=== PATIENT | female | born 1960 | race Caucasian/White ===

== ENCOUNTER → 2017-10-22 11:33 | Outpatient (CLI) | payer BC, SELFPAY | PROVIDERS: Visit Provider Family Medicine | DX: R30.0 Dysuria (principal) | CPT/HCPCS: 87086 ==

== ENCOUNTER → 2018-09-01 09:09 | Outpatient (CLI) | payer OTHER, SELFPAY ==
--- OUTSIDE RECORDS SUMMARY | 2018-10-18 07:40 | XMS RPT_ITS ---
:1960 Author Organization OHIP Care Team Providers Name Role Phone Donta Choudhary Attending Unavailable Donta Choudhary Primary Care Unavailable Donta Choudhary Attending Unavailable Donta Choudhary Primary Care Unavailable Referred, Self Attending Unavailable PROBLEMS PROBLEMS DATE TYPE CONDITION / CODE ATTENDING STATUS SOURCE 09/01/2018 Unknown R30.0 - Dysuria Donta Choudhary Active [place] / R30.0(ICD-10) [facility] Repository PROCEDURES PROCEDURES No Procedure Records FoundRESULTS RESULTS Observed: 09/01/2018 Status: F Source: [place] CULTURE, URINE 9:11 AM [facility] REPOSITORY Urine Culture Below infection level. Group B Streptococcus isolated from culture. ORGANISM 1: Mixed Gram Pos AND Gram Neg Org Quincy Count <1000 MIX CULTURE Mixed contaminants. Submit a new specimen if indicated. Performed By: #### [id number] #### [facility] [place], [address] DOWNTIME REPORT Observed: 03/12/2018 Status: F Source: ANANDA 12:33 PM [facility] REPOSITORY [facility] Medical Records Department [address] [place] [address] Downtime Report MR#: [id number] Acct: [id number] Name: MAEGAN PADGETT Rep #: [id number] : 1960 57 From: [facility] PCP: Donta Choudhary DO Status: REG RCR This patient was seen during an EMR downtime February 23, 2018 - March 02, 2018. This patient may have a combination of paper and electronic documentation or all paper documentation. All documentation is viewable within the e-chart portion of [email or web address] for each patient visit. Observed: 10/22/2017 Status: F Source: [place] CULTURE, URINE 11:43 AM [facility] REPOSITORY Urine Culture Culture exhibits no growth. Performed By: #### [id number] #### [facility] [address] [place], [address] ALLERGIES ALLERGIES No Allergies Records FoundENCOUNTERS ENCOUNTERS ADMIT/DISCHARGE ACCOUNT ADMITTING ENCOUNTER LOCATION SOURCE NUMBER CLASS 09/01/2018 [id number] [facility] ing:BFHLAB Repository 03/02/2018 [id number] Ambulatory [facility] 2 [facility] ing:MASS Repository 10/22/2017 [id number] [facility] 6 [facility] ing:LABSPEC Repository PAYERS PAYERS ENCOUNTER GUARANTOR PAYER SUBSCRIBER SOURCE 09/01/2018 CHANCE H Primary CHANCE H [place] [id number] N Insurance:ANTHEMPolic LEWISDOB: [facility] [place]: [id number] [id number] Repository 18[address]Suv: [phone]) Date:[id number] [phone] () [id number], [place] [address]XW: 09/01/2018 Secondary NOT GIVENUNK [place] Insurance:SELF PAY [facility] Number: Effective Repository Date:2018-09-01 03/02/2018 CHANCE H Primary NOT GIVENUNK [place] [id number] N Insurance:SELF PAY [place], [place] Number: Effective Repository [id number]: [phone]) Date:2017-12-11 [phone] () 10/22/2017 CHANCE H Primary CHANCE H [place] [id number] N Insurance:ANTHEMPolic [facility] [place]: [id number] [id number] Repository [address]Vxk: [phone]) Date:[id number] [phone] () [id number] [address]NH: 10/22/2017 Secondary NOT GIVENUNK [place] Insurance:SELF PAY [facility] Number: Effective Repository Date:2017-10-22
== END ==
PROVIDERS: Family Provider Family Medicine; PCP Family Medicine; Visit Provider Family Medicine
DX: R30.0 Dysuria (principal)
CPT/HCPCS: 87086; 87088

== ENCOUNTER → 2018-10-19 12:38 | Outpatient (CLI) | payer OTHER, SELFPAY ==
--- NOTE | 2018-10-19 12:40 | BI_ITS ---
MAMMOGRAPHY - BILATERAL SCREENING REASON FOR EXAM: Female, 57 years old. Routine annual screening examination. PERTINENT HISTORY: Non-contributory. TECHNIQUE: Digital bilateral breast rory (3D mammographic acquisition) in the CC and MLO projections. 2-D mediolateral oblique (MLO) and craniocaudad (CC) views of both breasts were obtained. CAD: Full Field Digital Mammography with Computer Added Detection was performed. COMPARISON: Comparison is made with prior examination dated September 18, 2017 and September 11, 2016. FINDINGS: Breast Composition: The breasts are almost entirely fatty. There are no dominant masses or suspicious calcifications. No other significant abnormalities are identified. There has been no significant change since the prior study. BI/SCREENING MAMM (CAD), BILAT IMPRESSION: Stable bilateral screening mammogram. Yearly follow-up mammogram recommended. (A) ASSESSMENT CATEGORY: BIRADS Category 1: Negative. A letter regarding these results will be sent to the patient by the facility within 30 days. Approximately 10% of breast cancers are not detected by mammography. A normal mammogram should not delay biopsy of a clinically suspicious abnormality. [id number] Electronically Signed: Rene Kumar MD at 10:11 EST , Service support ,
== END ==
PROVIDERS: Family Provider Family Medicine; PCP Family Medicine; Referring Provider Obstetrics & Gynecology; Visit Provider Obstetrics & Gynecology
DX: Z12.31 Encounter for screening mammogram for malignant neoplasm of breast (principal)
CPT/HCPCS: 77063; 77067

== ENCOUNTER → 2019-02-23 10:08 | Outpatient (CLI) | payer OTHER, SELFPAY | PROVIDERS: Visit Provider Obstetrics & Gynecology | DX: N39.0 Urinary tract infection, site not specified (principal) | CPT/HCPCS: 87077; 87086; 87088 ==

== ENCOUNTER → 2019-06-07 17:04 | Outpatient (CLI) | payer OTHER, SELFPAY ==
[2019-06-29 15:41] LABS: HPV Reflexed? NOT INDICATED
== END ==
PROVIDERS: Referring Provider Obstetrics & Gynecology; Visit Provider Obstetrics & Gynecology
DX: Z12.4 Encounter for screening for malignant neoplasm of cervix (principal)
CPT/HCPCS: 88175; G0145

== ENCOUNTER 2019-07-17 15:34 | Emergency (ER) | payer OTHER, SELFPAY ==
[2019-07-17 15:34] VITALS: BP 130/95; PULSE 115; RESP 16; TEMP 37.2; O2SAT 98; BMI 23.4
--- NOTE | 2019-07-17 16:00 | ED.VISSUMM ---
- ER Visit Summary Date of Service: 07/17/19 Chief Complaint: Fell a week ago with a lip laceration and right anterior chest wall pain History of Present Illness: The patient is a 58 F she was hiking last Friday. She tripped and fell over a rock striking her right chest and lip. Causing laceration to her lip. Was seen in urgent care and was placed on clindamycin on Friday. They were concerned the lip did not look any better on and started on Bactrim. The lip was never repaired because of his delayed presentation of the laceration. She also states she is had right anterior rib cage pain since the fall. No LOC. No head injury no neck pain. No abdominal pain. Physical Examination: Alert female no acute distress. Vital signs are stable and afebrile. She does not look septic or toxic. She is in no distress. H EENT exam dry reactive light. No facial trauma except the lower lip has healing lacerations. There is no infection. The swelling is resolving. These which is never sewn closed in the subcu tissue coming out of both wounds. But there is currently no infection. Dentition is intact. No malocclusion. Scalp nontender neck nontender lungs clear to auscultation bilaterally. Heart regular rhythm no murmur or bruit. Chest wall right anterior chest wall tender. There is no ecchymosis or bruising. No subcu air or crepitance. Abdomen soft nontender normal bowel sounds no peritoneal signs. No signs of trauma. Pelvic girdle intact. Extremities moves all 4. Neurovascular intact. Equal symmetrical supervisor ore dressing strength. Equal symmetrical dorsi plantarflexion. Normal range of motion of both upper and lower extremities. Back nontender. Spine nontender. Neurologically she is awake and alert with no focal motor or sensory deficits. GCS of 15. Test Results: Chest x-ray AP lateral 2 views as read by myself shows no acute abnormality read by myself the radiologist. No rib fractures. No pneumothorax. Emergency Department Course and Treatment: I explained to the patient that her lip laceration is not infected. It is just subcu tissue coming out of the wounds. We will stop with antibiotics. We are going to obtain a chest x-ray due to the chest wall discomfort from the fall. Patient doing well on repeat exam at 1710. Treatment Plan: Ice to her lip. Stop both antibiotics. Tylenol Motrin for her chest wall pain. Disposition: Discharge Impression: Recent fall Lower lip laceration with delayed presentation and healing Right chest wall contusion This note was generated with [employer] dictation software. It may contain incorrect words, spelling, and punctuation that were not noted in review of the chart prior to signing ED Disposition - Plan for ED Patient: Referrals: Donta Choudhary DO [Primary Care Provider] -
--- NOTE | 2019-07-17 16:15 | RAD_ITS ---
STUDY: X-RAY CHEST REASON FOR EXAM: Female, 58 years old. Patient fell, right-sided chest pain TECHNIQUE: PA and lateral views of the chest. COMPARISON: None. FINDINGS: The lungs are clear and expanded. There is no demonstrated pleural abnormality. Normal size heart. Normal mediastinum and bsosman. Normal visualized pulmonary arteries. Normal visualized aortic arch and descending thoracic aorta. There is demineralization of the osseous structures. Normal visualized ribs, clavicles, and shoulders. Hiatal hernia noted. RAD/Chest PA and Lateral IMPRESSION: No acute cardiopulmonary process. Electronically Signed: Chaim Rockwell MD ([place]) at 16:30 EDT , Service support ,
--- NOTE | 2019-07-17 17:12 | ED.DEP ---
ED Disposition - Plan for ED Patient: Disposition: Home or Assisted Living Instructions: Chest Wall Contusion Referrals: Donta Choudhary, [Primary Care Provider] - 1 Week if not improving Additional Instructions: Stop the current antibiotics. Your lip is not infected and just the way the wound looks since it was never closed. Ice to the lip. Tylenol Motrin for pain. Your chest wall should not prove and start feeling better if not have it reevaluated.
== END 2019-07-17 17:25 | disposition home or self-care (01) ==
PROVIDERS: Emergency Provider Emergency Medicine; Family Provider Family Medicine; PCP Family Medicine
DX: S01.511A Laceration without foreign body of lip, initial encounter (principal); S20.211A Contusion of right front wall of thorax, initial encounter; W18.09XA Striking against other object with subsequent fall, initial encounter; Y93.01 Activity, walking, marching and hiking
CPT/HCPCS: 71046; 99282

== ENCOUNTER → 2019-10-25 13:24 | Outpatient (CLI) | payer BC, SELFPAY ==
--- NOTE | 2019-10-25 13:30 | BI_ITS ---
MAMMOGRAPHY - BILATERAL SCREENING REASON FOR EXAM: Female, 58 years old. Routine annual screening examination. PERTINENT HISTORY: Non-contributory. TECHNIQUE: Digital bilateral breast walter (3D mammographic acquisition) in the CC and MLO projections. 2-D mediolateral oblique (MLO) and craniocaudad (CC) views of both breasts were obtained. CAD: Full Field Digital Mammography with Computer Added Detection was performed. COMPARISON: Comparison is made with prior study dated October 11, 2018 and September 18, 2017. FINDINGS: Breast Composition: The breasts are almost entirely fatty. There are no dominant masses or suspicious calcifications. No other significant abnormalities are identified. There has been no significant change since the prior study. BI/SCREEN MAMM (CAD) W/WALTER BILAT IMPRESSION: Stable bilateral screening mammogram. Yearly follow-up mammogram recommended. (A) ASSESSMENT CATEGORY: BIRADS Category 1: Negative. A letter regarding these results will be sent to the patient by the facility within 30 days. Approximately 10% of breast cancers are not detected by mammography. A normal mammogram should not delay biopsy of a clinically suspicious abnormality. [id number] Electronically Signed: Rene Kumar, at 14:16 EST , Service support ,
== END ==
PROVIDERS: Family Provider Family Medicine; PCP Family Medicine; Referring Provider Obstetrics & Gynecology; Visit Provider Obstetrics & Gynecology
DX: Z12.31 Encounter for screening mammogram for malignant neoplasm of breast (principal)
CPT/HCPCS: 77063; 77067

== ENCOUNTER → 2020-03-08 10:41 | Outpatient (CLI) | payer BC, SELFPAY ==
[2020-03-08 12:49] LABS: Absolute Lymphocyte Count 2.24 X10^3/uL (0.83-4.51); Absolute Neutrophil Count 2.4 X10^3/uL (2.0-7.7); Basophil# 0.04 X10^3/uL; Basophil% 0.8 % (0-1); Eosinophils% 3.8 % (0-5); Hematocrit 41.2 % (37-47); Hemoglobin 13.9 g/dL (12.0-15.0); Lymphocyte # 2.24 X10^3/ul (4.0); Mean Corp Hgb Conc 33.7 g/dL (32-36); Mean Corpuscular Hgb 30.7 pg (27.0-32.0); Mean Corpuscular Volume 90.9 fL (81-99); Mean Platelet Vol. 11.4 fl (6.2-12.0); Monocyte# 0.47 X10^3/uL; Monocyte% 8.8 % (0-10); NRBC Flagged by Analyzer 0 % (0-5); Neutrophil # 2.37 X10^3/uL (2.7-7.7); Neutrophil % 44.4 % (47-70); Platelet Count 229 K/mm3 (150-450); RBC Distribution Width CV 12.4 % (11.6-14.6); RBC Distribution Width SD 41.1 fl (35.1-43.9); Red Blood Count 4.53 M/mm3 (4.2-5.4); White Blood Count 5.3 K/mm3 (4.4-11.0)
[2020-03-08 13:03] LABS: Vitamin B12 623 pg/mL (211-911)
[2020-03-08 13:10] LABS: ALB/GLOB Ratio 1.3 RATIO (0.9-2.4); AST(SGOT) 24 U/L (15-37); Alanine Aminotransfer ALT/SGPT 22 U/L (13-56); Albumin, Serum 4.4 g/dL (3.2-5.0); Alkaline Phosphatase 58 U/L (45-117); Anion Gap 6 (5-15); BUN 12 mg/dL (7-18); BUN/Creat Ratio 14.8 RATIO (10-20); Calcium,Total 9.2 mg/dL (8.5-10.1); Chloride 99 mmol/L (98-107); Cholesterol 189 mg/dL (200); Creatinine, Serum 0.81 mg/dL (0.55-1.02); EST Glomerular Filtration Rate 77 mL/min (>60); Est Glom Filt Rate - Afr Amer 93 mL/min (>60); Globulin 3.3 g/dL (2.2-4.2); Glucose 81 mg/dL (74-106); High Density Lipoprotein 61 mg/dL; Potassium 4.2 mmol/L (3.5-5.1); Protein, Total 7.7 g/dL (6.4-8.2); Sodium Level 137 mmol/L (136-145); Thyroid Stim Hormone (TSH) 1.22 uIU/mL (0.358-3.74); Triglycerides 48 mg/dL; Very Low Density Lipoprotein 10 mg/dL (5-40)
== END ==
PROVIDERS: PCP Family Medicine; Referring Provider Family Medicine; Visit Provider Family Medicine
DX: Z00.00 Encounter for general adult medical examination without abnormal findings (principal); K59.09 Other constipation; E53.8 Deficiency of other specified B group vitamins
CPT/HCPCS: 36415; 80053; 80061; 82607; 84443; 85025

== ENCOUNTER → 2020-05-17 09:57 | Outpatient (CLI) | payer BC, SELFPAY ==
[2020-05-17 13:15] LABS: Thyroid Stim Hormone (TSH) 1.77 uIU/mL (0.358-3.74)
[2020-05-18 15:29] LABS: ANTINUCLEAR ANTIBODIES DIRECT Negative (Negative)
== END ==
PROVIDERS: PCP Family Medicine; Visit Provider Family Medicine
DX: G62.9 Polyneuropathy, unspecified (principal)
CPT/HCPCS: 36415; 84443; 86038; 86225; 86235

== ENCOUNTER → 2020-06-23 11:01 | Outpatient (CLI) | payer BC, SELFPAY | PROVIDERS: PCP Family Medicine; Visit Provider Family Medicine | DX: N30.00 Acute cystitis without hematuria (principal) | CPT/HCPCS: 87086; 87088; 87186 ==

== ENCOUNTER → 2020-06-26 07:07 | Outpatient (CLI) | payer BC, SELFPAY ==
--- NOTE | 2020-06-26 09:21 | NEURO ---
NCS and/or EMG Patient Report Ordering Doctor: Donta Choudhary DATE OF SERVICE: 06/26/20 Indication: The patient is a 59-year-old woman presenting with longstanding, but progressive numbness in the bilateral lower extremities. This is painless, though sometimes she reports a tightness in the feet she reports symptoms have been present for many years. She states that her mother had similar problems at a younger age, but she had diabetes as well. On examination, there is significant pes cavus deformity. Evaluate for peripheral polyneuropathy. Findings: Nerve conduction studies were performed the bilateral lower extremities. The right peroneal motor study recording the extensor digitorum brevis showed an absent response. The right tibial motor study recording the abductor hallucis brevis showed a reduced amplitude, normal distal latency and slowed conduction velocity. Right sural sensory response was absent. Right superficial peroneal sensory response was absent. The left peroneal motor study recording the extensor digitorum brevis showed a reduced amplitude, normal distal latency, and slowed conduction velocity. No conduction block or focal slowing was present across the fibular neck. The left tibial motor study recording the abductor hallucis brevis showed a reduced amplitude, mildly prolonged distal latency and markedly slowed conduction velocity. Left sural sensory response was absent. Left superficial peroneal sensory response was absent. Left superficial radial sensory response was absent. Needle EMG of the left lower extremity and paraspinal muscles was performed. Active denervation was present in the tibialis anterior, medial gastrocnemius, and extensor hallucis longus muscles. Motor units in the extensor hallucis longus muscles were markedly large amplitude, long duration with slightly increased polyphasia and moderately reduced recruitment. Motor units in the tibialis anterior and medial gastrocnemius muscles demonstrated slightly enlarged motor units with slightly reduced recruitment. The vastus medialis, tensor fascia meena, and lower lumbar paraspinal muscles revealed motor units with normal morphology, activation, and recruitment patterns. Impression: This is a markedly abnormal study. There is electrophysiologic evidence of a severe, active and chronic, sensorimotor peripheral polyneuropathy. The pathophysiology appears to be largely axonal. That said, several of the nerve conduction studies demonstrate velocities within or approaching demyelinating range. This finding along with the patient's family history of polyneuropathy and her pes cavus deformity does raise the question of a hereditary polyneuropathy (i.e. [id number]-Gsbux). There was do definitive evidence of an acquired demyelinating neuropathy such as conduction block seen in CIDP, though this would also remain in the differential diagnosis. If this is a clinical consideration, neuromuscular ultrasound to evaluate for the presence of known peripheral nerve hypertrophy would be an appropriate next diagnostic step. Ed Hudson D.O.
== END ==
PROVIDERS: PCP Family Medicine; Referring Provider Family Medicine; Visit Provider Family Medicine
DX: G62.9 Polyneuropathy, unspecified (principal)
CPT/HCPCS: 95886; 95911

== ENCOUNTER → 2020-09-18 12:33 | Outpatient (CLI) | payer BC, SELFPAY ==
[2020-09-12 11:37] VITALS: BMI 25.0
[2020-09-18 16:13] LABS: Rheumatoid Factor < 10.0 IU/mL (<15)
[2020-09-20 20:08] LABS: Free Kappa Light Chains 22.1 mg/L (3.3-19.4); Free Lambda Light Chains 21.6 mg/L (5.7-26.3)
== END ==
PROVIDERS: PCP Family Medicine; Referring Provider Psychiatry & Neurology Neurology; Visit Provider Psychiatry & Neurology Neurology
DX: G62.9 Polyneuropathy, unspecified (principal); M25.541 Pain in joints of right hand; M25.542 Pain in joints of left hand
CPT/HCPCS: 36415; 82746; 83883; 86431

== ENCOUNTER → 2020-09-25 09:36 | Outpatient (CLI) | payer BC, SELFPAY ==
[2020-09-12 11:37] VITALS: BMI 25.0
[2020-09-25 12:54] LABS: Erythrocyte Sedimentation Rate 2 mm/hr (0-30)
[2020-09-25 13:01] LABS: CRP < 2.90 mg/L (0.0-3.0)
[2020-09-27 08:20] LABS: CCP IgG Antibodies 4 units (0-19)
== END ==
PROVIDERS: PCP Family Medicine; Visit Provider Family Medicine
DX: M25.50 Pain in unspecified joint (principal)
CPT/HCPCS: 36415; 85652; 86140; 86200

== ENCOUNTER → 2020-10-18 14:14 | Outpatient (CLI) | payer BC, SELFPAY ==
[2020-09-12 11:37] VITALS: BMI 25.0
[2020-10-11 13:13] VITALS: BMI 23.9
--- NOTE | 2020-10-18 15:41 | NEURO ---
NCS and/or EMG Patient Report Ordering Doctor: Ricky Pat DATE OF SERVICE: 10/18/20 Nicole Thakkar is a 59-year-old female who presents for electrodiagnostic testing of the upper limbs. She reports numbness in the hands and pain in both wrists. She had electrodiagnostic testing of the lower limbs performed on June 26, 2020. This showed electrophysiologic evidence of a severe, active and chronic sensorimotor peripheral polyneuropathy which was primarily axonal. Electrodiagnostic findings: Left median motor nerve demonstrates normal distal latency, amplitude with reduced conduction velocity. Right median motor nerve demonstrates prolonged distal latency with normal amplitude and reduced conduction velocity. Normal ulnar motor response bilaterally, including conduction across the elbow. Mildly prolonged median ulnar F waves bilaterally. Prolonged median sensory latency at the wrist is noted bilaterally. Prolonged right median palmar latency. Normal ulnar and radial sensory responses. On needle EMG, all muscles tested in the upper limbs, as well as the cervical paraspinals, showed no evidence of denervation with normal motor unit action potentials. Electrodiagnostic assessment: This is an abnormal study. 1. Electrodiagnostic findings demonstrate bilateral median mononeuropathy. This is consistent with a moderate right carpal tunnel syndrome and a mild left carpal tunnel syndrome. 2. Upper extremity testing does not demonstrate the same polyneuropathy that is noted in the lower limbs. There is no evidence of axonal loss or significant demyelination in the upper limbs. If there are any further questions, please do not hesitate to contact me
== END ==
PROVIDERS: PCP Family Medicine; Referring Provider Psychiatry & Neurology Neurology; Visit Provider Psychiatry & Neurology Neurology
DX: G62.9 Polyneuropathy, unspecified (principal); G56.20 Lesion of ulnar nerve, unspecified upper limb
CPT/HCPCS: 95886; 95912

== ENCOUNTER 2020-10-26 11:30 | Outpatient (RCR) | payer BC, SELFPAY ==
[2020-09-12 11:37] VITALS: BMI 25.0
--- NOTE | 2020-09-21 14:16 | HP.PTEVAL_ITS ---
Patient's Visit Information MAEGAN PADGETT is a 59 year old F referred to Physical Therapy by Dr. Ricky Pat MD with a diagnosis of Lumbar Radiculpathy. Date of Evaluation: 09/21/20 Physical Therapist: Nicole Galeano DPT - Visit Plan Frequency: 2x /Week Duration: 4 Weeks Plan: Aquatic Therapy: Focus on LE and core strength/stablization- proprioception and functional mobility - Subjective Patient reports that she went to see the neurologist due to neropathy- she has had back problems on/off for years and the pain radiates into the hips. Has not had any x-rays or MRI on the back. She had an EMG and blood work done a month ago and they are sending her to get her hands done this year. Has been seeing a chiropractor for over a year- she goes on and off- adjustments only- no exercises or modalities. The back pain comes and goes. Agg: having her grandsons (8,5,3). 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 She had a workers comp injury to her back from that about 4 years ago. Her first back issues were from bending over to get something out of her cabinet. The pain radiates from the low back and into the hips. The toes are numb all the time due to neuropathy- unsure how far the radiating pain goes. They want to do an MRI but she needs to do PT first. Has not had any recent falls. No knee buckling or loss of motor in her legs. She has IBS with constipation that helps to move bowels but no loss or change in bowel or bladder. Worst: 5/10 Best: 0/10. She gets cramping in her legs at night Sleep: disturbed with the cramping- back and side sleeper. Describes the pain in her back as sharp/shooting and dull and achy depending on what she is doing. Eases: rub it down. Work: not anymore- she has been pretty sedentary during the day. She has been walking but the weather and all the COVID issues she has been less active. PMH/Meds: no changes since she saw the neurologist - Objective Posture: FH, RS- can correct but does not maintain. Gait: no significant deviation noted- good arm swing and trunk rotation. Observation: significant guarding with all movements and mobility. HR/TR: able but does reports pain. SLS: weight shift but unable to safely SLS without UE A. ROM: Lumbar: WFL but reports pain with extension and SB bilaterally Hip/Knee/Ankle: WNL. Strength: Core: poor, Hip: flexion: 4-/5, abd: 4/5, extn: 4-/5, Add: 4/5, IR/ER: 4-/5, Knee: 4/4, Ankle: 5/5. Flex: HS: severe, Gastroc: moderate. Sensation: WFL to gross touch bilateral LE. Special Test: dural signs: positive bilateral, SLR: positive bilateral, Slump: positive bilateral, LLD: negative, extn testing: increased pain, flexion testing: increased pain - Goals Goal 1:: Patient will be I with HEP and progression Goal Time Frame: 4-6 Weeks Goal 2:: Patient will maintain proper posture t/o tx session to demo increased core s/s. Goal Time Frame: 4-6 Weeks Goal 3:: Patient will report no more than 2/10 pain in the lumbar spine Goal Time Frame: 4-6 Weeks Goal 4:: Patient will report no referral of back pain to bilateral LE Goal Time Frame: 4-6 Weeks - Rehabilitation Potential Physical Therapy Diagnosis: Patient presents with hypomobility- she has decreased ROM,strength, flex and muscular endurance leading to increased pain with ADL's. Rehabilitation Potential: Fair - Anticipated Interventions Patient/Client Instruction: Educate patient on: Benefits of Fitness Program Therapeutic Exercise to Include: Strength training, Endurance training, Balance training, Coordination, Agility training, Body mechanics, Postural training, Flexibilty training, Gait and locomotor training, Neuromotor development, In an aquatic setting, Dynamic Lumbar Stabilization, Scapular Strength/Stabilization For the Purpose of:: To improve muscle performance and motor function Thank you for the opportunity to evaluate your patient. For Medicare and Medicare HMO plans, please review the plan of care and approve it. It will need to be FAXED BACK to us at [phone] for Medicare purposes. For Medicare only, by signing this I certify the plan of care. Please let me know if there are questions or concerns regarding this plan of care. Physician Signatu re: Date:
--- NOTE | 2020-10-09 11:41 | HP.PTREVAL_ITS ---
Dr. Ricky Pat MD, It has been my pleasure to treat MAEGAN PADGETT over the last 5 visits for Lumbar Radiculpathy. Please see the progress note below for an update on the physical therapy plan of care! Subjective: Patient reports pain at its worst is a 2-3/10 and best is a 0/10. Making progress but is not there yet. Able to do more at home. Objective/Function: Posture: FH, RS- can correct but does not maintain. Gait: no significant deviation noted- good arm swing and trunk rotation- when in pool has uses a float for AD due to decrease balance with water movement. Observation: significant guarding with all movements and mobility. HR/TR: able but does reports pain. SLS: weight shift but unable to safely SLS without UE A. Requires UE A to side step- turns toes out in ER. ROM: Lumbar: WFL but reports pain with extension and SB bilaterally Hip/Knee/Ankle: WNL. Strength: Core: poor, Hip: flexion: 4-/5, abd: 4/5, extn: 4-/5, Add: 4/5, IR/ER: 4-/5, Knee: 4/4, Ankle: 5/5. Special Test: dural signs: positive bilateral, SLR: positive bilateral, Slump: positive bilateral, LLD: negative, extn testing: increased p ain, flexion testing: increased pain. Does reports subjective improvements with aquatic physical therapy- no significant objective measures noted as patient was only approved 4 visits. Plan Plan: Continue aquatic therapy 2-3x a week for 6 weeks to improve objective measures and continue to improved subjective measures and functional mobility. Goals Goal 1:: Patient will be I with HEP and progression Goal Time Frame: 4-6 Weeks Goal Progress: Progressing Goal 2:: Patient will maintain proper posture t/o tx session to demo increased core s/s. Goal Time Frame: 4-6 Weeks Goal Progress: Progressing Goal 3:: Patient will report no more than 2/10 pain in the lumbar spine Goal Time Frame: 4-6 Weeks Goal Progress: Progressing Goal 4:: Patient will report no referral of back pain to bilateral LE Goal Time Frame: 4-6 Weeks Anticipated Interventions Patient/Client Instruction: Educate patient on: Benefits of Fitness Program Therapeutic Exercise to Include: Strength training, Endurance training, Balance training, Coordination, Agility training, Body mechanics, Postural training, Flexibilty training, Gait and locomotor training, Neuromotor development, In an aquatic setting, Dynamic Lumbar Stabilization, Scapular Strength/Stabilization For the Purpose of:: To improve muscle performance and motor function Please do not hesitate to contact me at [phone] by phone or if you have questions or concerns regarding this new plan of care! Sincerely, DUDLEY MabryT
--- NOTE | 2020-11-27 14:15 | HP.PT.NRP ---
MAEGAN PADGETT was seen in my office for initial evaluation on 09/21/20. The following Plan of Care was established for this patient: Initial Frequency: 2x /Week Initial Duration: 4 Weeks Patient/Client Instruction: Educate patient on: Benefits of Fitness Program Therapeutic Exercise to Include: Strength training, Endurance training, Balance training, Coordination, Agility training, Body mechanics, Postural training, Flexibilty training, Gait and locomotor training, Neuromotor development, In an aquatic setting, Dynamic Lumbar Stabilization, Scapular Strength/Stabilization For the Purpose of:: To improve muscle performance and motor function This patient was last seen in our office . Pertinent comments regarding their Physical therapy will appear below: Patient has not attended PT in over 30 days- appropriate to be d/c and return to MD for further evaluation. At this point I will be discontinuing this patient from physical therapy. I would be happy to see this patient again in the future if found appropriate by the physician. Thank you! Nicole Galeano DPT
== END 2020-10-26 19:00 | disposition home or self-care (01) ==
LOC: PT 11:30
PROVIDERS: PCP Family Medicine; Referring Provider Psychiatry & Neurology Neurology; Visit Provider Psychiatry & Neurology Neurology
DX: M54.5 Low back pain (principal); M54.16 Radiculopathy, lumbar region; G62.9 Polyneuropathy, unspecified
CPT/HCPCS: 97113; 97162; 97164

== ENCOUNTER → 2020-11-10 14:11 | Outpatient (CLI) | payer BC, SELFPAY ==
[2020-10-11 13:13] VITALS: BMI 23.9
[2020-11-10 17:25] LABS: Absolute Lymphocyte Count 1.98 X10^3/uL (0.83-4.51); Absolute Neutrophil Count 2.2 X10^3/uL (2.0-7.7); Basophil# 0.04 X10^3/uL; Basophil% 0.8 % (0-1); Eosinophil# 0.13 X10^3/uL; Eosinophils% 2.7 % (0-5); Hematocrit 41.3 % (37-47); Hemoglobin 13.4 g/dL (12.0-15.0); Lymphocyte # 1.98 X10^3/ul (4.0); Lymphocyte % 41.3 % (19-41); Mean Corp Hgb Conc 32.4 g/dL (32-36); Mean Corpuscular Hgb 29.8 pg (27.0-32.0); Mean Corpuscular Volume 91.8 fL (81-99); Mean Platelet Vol. 10.3 fl (6.2-12.0); Monocyte# 0.47 X10^3/uL; Monocyte% 9.8 % (0-10); NRBC Flagged by Analyzer 0 % (0-5); Neutrophil # 2.16 X10^3/uL (2.7-7.7); Neutrophil % 45.2 % (47-70); Platelet Count 269 K/mm3 (150-450); RBC Distribution Width CV 12.8 % (11.6-14.6); RBC Distribution Width SD 43.1 fl (35.1-43.9); White Blood Count 4.8 K/mm3 (4.4-11.0)
[2020-11-10 17:47] LABS: Erythrocyte Sedimentation Rate 2 mm/hr (0-30)
[2020-11-10 17:59] LABS: ALB/GLOB Ratio 1.3 RATIO (0.9-2.4); AST(SGOT) 17 U/L (15-37); Alanine Aminotransfer ALT/SGPT 19 U/L (13-56); Albumin, Serum 4.3 g/dL (3.2-5.0); Alkaline Phosphatase 74 U/L (45-117); Anion Gap 8 (5-15); BUN 12 mg/dL (7-18); BUN/Creat Ratio 15.2 RATIO (10-20); CRP < 2.90 mg/L (0.0-3.0); Chloride 100 mmol/L (98-107); Creatinine, Serum 0.79 mg/dL (0.55-1.02); EST Glomerular Filtration Rate 80 mL/min (>60); Est Glom Filt Rate - Afr Amer 97 mL/min (>60); Globulin 3.3 g/dL (2.2-4.2); Glucose 74 mg/dL (74-106); Potassium 3.6 mmol/L (3.5-5.1); Protein, Total 7.6 g/dL (6.4-8.2); Rheumatoid Factor < 10.0 IU/mL (<15); Sodium Level 138 mmol/L (136-145)
[2020-11-10 18:25] LABS: Hepatitis B Surface Antibody Non-Reactive; Hepatitis B Surface Antigen Non-Reactive (Nonreactive); Hepatitis C Antibody Non-Reactive (Nonreactive)
[2020-11-12 15:06] LABS: ANTINUCLEAR ANTIBODIES DIRECT Negative (Negative)
[2020-11-14 09:24] LABS: CCP IgG Antibodies 4 units (0-19); Hepatitis B Core AB IgM Negative (Negative)
== END ==
PROVIDERS: PCP Family Medicine; Referring Provider Internal Medicine Rheumatology; Visit Provider Internal Medicine Rheumatology
DX: M06.4 Inflammatory polyarthropathy (principal); Q66.71 Congenital pes cavus, right foot; K59.09 Other constipation; K58.9 Irritable bowel syndrome, unspecified; K21.9 Gastro-esophageal reflux disease without esophagitis; I10 Essential (primary) hypertension; N32.81 Overactive bladder; G62.9 Polyneuropathy, unspecified; L92.0 Granuloma annulare
CPT/HCPCS: 36415; 80053; 85025; 85652; 86038; 86140; 86200; 86431; 86705; 86706; 86803; 87340

== ENCOUNTER → 2021-02-28 12:45 | Outpatient (CLI) | payer BC, SELFPAY ==
[2021-02-14 11:09] VITALS: BMI 25.0
--- NOTE | 2021-02-28 12:48 | BI_ITS ---
MAMMOGRAPHY - BILATERAL SCREENING REASON FOR EXAM: Female, 60 years old. Routine annual screening examination. PERTINENT HISTORY: Non-contributory. TECHNIQUE: Digital bilateral breast walter (3D mammographic acquisition) in the CC and MLO projections. 2-D mediolateral oblique (MLO) and craniocaudad (CC) views of both breasts were obtained. CAD: Full Field Digital Mammography with Computer Added Detection was performed. COMPARISON: Comparison is made with prior study dated 10/25/2019 and 10/19/2018. FINDINGS: Breast Composition: The breasts are almost entirely fatty. There are no dominant masses or suspicious calcifications. No other significant abnormalities are identified. There has been no significant change since the prior study. BI/SCRN MAMM (CAD)W/WALTER BILAT IMPRESSION: Stable bilateral screening mammogram. Yearly follow-up mammogram recommended. (A) ASSESSMENT CATEGORY: BIRADS Category 1: Negative. A letter regarding these results will be sent to the patient by the facility within 30 days. Approximately 10% of breast cancers are not detected by mammography. A normal mammogram should not delay biopsy of a clinically suspicious abnormality. [id number] Electronically Signed: Rene Kumar MD at 13:40 EDT , Service support ,
== END ==
PROVIDERS: PCP Family Medicine; Referring Provider Student in an Organized Health Care Education/Training Program; Visit Provider Student in an Organized Health Care Education/Training Program
DX: Z12.31 Encounter for screening mammogram for malignant neoplasm of breast (principal)
CPT/HCPCS: 77063; 77067

== ENCOUNTER → 2021-04-06 12:09 | Outpatient (CLI) | payer BC, SELFPAY ==
[2021-02-14 11:09] VITALS: BMI 25.0
--- NOTE | 2021-04-06 12:12 | US_ITS ---
INDICATION: UTI EXAMINATION: US Kidney(s) complete (eg, kidneys and bladder) TECHNIQUE: Prieto scale and color doppler images were obtained of the kidneys. COMPARISON: None. FINDINGS: RIGHT KIDNEY: Measures 9.3 cm in length. There is no hydronephrosis. No shadowing calculus, focal lesion or perinephric collection is demonstrated. LEFT KIDNEY: Measures 9.1 cm in length. There is no hydronephrosis. No shadowing calculus, focal lesion or perinephric collection is demonstrated. URINARY BLADDER: No acute abnormality. US/Kidney and Bladder IMPRESSION: Normal renal ultrasound. Electronically Signed: Ed Barger MD at 23:26 EDT Tel , Service support ,
== END ==
PROVIDERS: PCP Family Medicine; Referring Provider Urology; Visit Provider Urology
DX: N39.0 Urinary tract infection, site not specified (principal)
CPT/HCPCS: 76770

== ENCOUNTER → 2022-03-12 | Outpatient (CLI) | payer BC, SELFPAY | END | disposition home or self-care (01) | LOC: LABSPEC 12:58 | PROVIDERS: PCP Family Medicine; Visit Provider Family Medicine | DX: R82.90 Unspecified abnormal findings in urine (principal); R82.998 Other abnormal findings in urine | CPT/HCPCS: 87077; 87086; 87088; 87186 ==

== ENCOUNTER → 2022-03-14 | Outpatient (CLI) | payer BC, SELFPAY ==
[2022-03-19 10:27] LABS: HPV APTIMA, High Risk Negative (Negative)
== END | disposition home or self-care (01) ==
LOC: LABSPEC 14:23
PROVIDERS: PCP Family Medicine; Visit Provider Student in an Organized Health Care Education/Training Program
DX: Z12.4 Encounter for screening for malignant neoplasm of cervix (principal)
CPT/HCPCS: 87624; 88175; G0145

== ENCOUNTER → 2022-03-28 | Outpatient (CLI) | payer BC, SELFPAY ==
--- NOTE | 2022-03-28 13:09 | BI_ITS ---
MAMMOGRAPHY - BILATERAL SCREENING REASON FOR EXAM: Female, 61 years old. Routine annual screening examination. PERTINENT HISTORY: Non-contributory. TECHNIQUE: Digital bilateral breast walter (3D mammographic acquisition) in the CC and MLO projections. 2-D mediolateral oblique (MLO) and craniocaudad (CC) views of both breasts were obtained. CAD: Full Field Digital Mammography with Computer Added Detection was performed. COMPARISON: Comparison is made with prior study dated 02/28/2021 and 10/25/2019. FINDINGS: Breast Composition: The breasts are almost entirely fatty. There are no dominant masses or suspicious calcifications. Stable small benign appearing bilateral axillary nodes. No other significant abnormalities are identified. There has been no significant change since the prior study. BI/SCRN MAMM (CAD)W/WALTER BILAT IMPRESSION: Stable bilateral screening mammogram. Yearly follow-up mammogram recommended. (A) ASSESSMENT CATEGORY: BIRADS Category 2: Benign. A letter regarding these results will be sent to the patient by the facility within 30 days. Approximately 10% of breast cancers are not detected by mammography. A normal mammogram should not delay biopsy of a clinically suspicious abnormality. [id number] Electronically Signed: Rene Kumar MD at 14:27 EDT ,
== END | disposition home or self-care (01) ==
LOC: OPBI 13:07
PROVIDERS: PCP Family Medicine; Visit Provider Student in an Organized Health Care Education/Training Program
DX: Z12.31 Encounter for screening mammogram for malignant neoplasm of breast (principal)
CPT/HCPCS: 77063; 77067

== ENCOUNTER → 2022-07-18 | Outpatient (CLI) | payer BC, SELFPAY ==
--- NOTE | 2022-07-18 16:27 | RAD_ITS ---
EXAM: XR RIGHT ANKLE COMPLETE, 3 OR MORE VIEWS CLINICAL INDICATION: PAIN TECHNIQUE: Frontal, lateral and oblique views of the right ankle. This report was created using [employer] report generation technology. COMPARISON: None. FINDINGS: BONES/JOINTS: There are vague lucent lesions seen within the distal tibia and fibula. No acute fracture. No subluxation. Normal alignment. Preservation of the joint space. SOFT TISSUES: There is soft tissue swelling over the medial and lateral malleoli. No radiopaque foreign body. RAD/Ankle min 3 Views IMPRESSION: 1. Soft tissue swelling with no acute osseous abnormalities. 2. Vague lytic lesion seen within the distal tibia and fibula possibly representing multiple myeloma. Skeletal survey may be beneficial for further evaluation. Electronically Signed: Kunal Sam MD at 23:09 EDT ,
--- NOTE | 2022-07-18 16:27 | RAD_ITS ---
EXAM: XR RIGHT FOOT COMPLETE, 3 OR MORE VIEWS CLINICAL INDICATION: PAIN TECHNIQUE: Frontal, lateral and oblique views of the right foot. This report was created using [employer] report generation technology. COMPARISON: None. FINDINGS: BONES/JOINTS: There is a fracture of the distal fourth metatarsal. Preservation of the joint space. No sclerotic or destructive changes observed. SOFT TISSUES: Unremarkable. No soft tissue swelling or gas. No radiopaque foreign body. RAD/Foot min 3 Views IMPRESSION: Fracture of the fifth metatarsal. Electronically Signed: Kunal Sam MD at 17:46 EDT ,
== END | disposition home or self-care (01) ==
LOC: MTRAD 16:26
PROVIDERS: PCP Family Medicine; Referring Provider Family Medicine; Visit Provider Family Medicine
DX: M25.571 Pain in right ankle and joints of right foot (principal); M79.671 Pain in right foot
CPT/HCPCS: 73610; 73630

== ENCOUNTER → 2022-07-19 | Outpatient (CLI) | payer BC, SELFPAY ==
[2022-07-19 12:11] LABS: ALB/GLOB Ratio 1.2 RATIO (0.9-2.4); AST(SGOT) 25 U/L (15-37); Absolute Lymphocyte Count 2.49 X10^3/uL (0.83-4.51); Absolute Neutrophil Count 3.8 X10^3/uL (2.0-7.7); Alanine Aminotransfer ALT/SGPT 22 U/L (13-56); Albumin, Serum 4.1 g/dL (3.2-5.0); Alkaline Phosphatase 86 U/L (45-117); Anion Gap 5 (5-15); BUN 13 mg/dL (7-18); BUN/Creat Ratio 14.7 RATIO (10-20); Basophil# 0.05 X10^3/uL; Basophil% 0.7 % (0-1); Calcium,Total 8.8 mg/dL (8.5-10.1); Chloride 104 mmol/L (98-107); Creatinine, Serum 0.88 mg/dL (0.55-1.02); EST Glomerular Filtration Rate 69 mL/min (>60); Eosinophil# 0.31 X10^3/uL; Eosinophils% 4.3 % (0-5); Est Glom Filt Rate - Afr Amer 84 mL/min (>60); Globulin 3.4 g/dL (2.2-4.2); Glucose 158 mg/dL (74-106); Hematocrit 42.7 % (37-47); Hemoglobin 14.5 g/dL (12.0-15.0); Lymphocyte # 2.49 X10^3/ul (0.83-4.51); Lymphocyte % 34.9 % (19-41); Mean Corpuscular Hgb 30.9 pg (27.0-32.0); Monocyte# 0.49 X10^3/uL; Monocyte% 6.9 % (0-10); NRBC Flagged by Analyzer 0 % (0-5); Neutrophil # 3.78 X10^3/uL (2.7-7.7); Neutrophil % 53.1 % (47-70); Platelet Count 280 K/mm3 (150-450); Potassium 3.6 mmol/L (3.5-5.1); Protein, Total 7.5 g/dL (6.4-8.2); RBC Distribution Width CV 13.1 % (11.6-14.6); RBC Distribution Width SD 43.4 fl (35.1-43.9); Red Blood Count 4.69 M/mm3 (4.2-5.4); Sodium Level 137 mmol/L (136-145); White Blood Count 7.1 K/mm3 (4.4-11.0)
[2022-07-23 15:02] LABS: Immunoglobulin A 105 mg/dL (87-352); Immunoglobulin G 1105 mg/dL (586-1602); PROEL- A/G Ratio 1.3 (0.7-1.7); PROEL- Alpha-1 Globulin 0.3 g/dL (0.0-0.4); PROEL- Alpha-2 Globulin 0.7 g/dL (0.4-1.0); PROEL- Gamma Globulin 1.1 g/dL (0.4-1.8); PROEL- Globulin, Total 3.1 g/dL (2.2-3.9); PROEL- TOTAL PROTEIN 7.1 g/dL (6.0-8.5); PROELU- Albumin, Urine 34.5 % (.); PROELU- Alpha-1-Globulin,Ur 6.4 % (.); PROELU- Beta Globulin, Ur 21.7 % (.); PROELU- Gamma Globulin, Ur 20.4 % (.)
[2022-07-23 17:10] LABS: Immunoglobulin M 105 mg/dL (26-217)
== END | disposition home or self-care (01) ==
LOC: BFHLAB 10:15
PROVIDERS: PCP Family Medicine; Visit Provider Family Medicine
DX: M89.9 Disorder of bone, unspecified (principal)
CPT/HCPCS: 36415; 80053; 82232; 82784; 84165; 84166; 85025; 86334

== ENCOUNTER → 2022-07-19 | Outpatient (CLI) | payer BC, SELFPAY ==
--- NOTE | 2022-07-19 13:53 | RAD_ITS ---
EXAM: XR BONE SURVEY, COMPLETE CLINICAL INDICATION: LESION TECHNIQUE: Multiple views of the bones of the axial and appendicular skeleton. This report was created using [employer] report generation technology. COMPARISON: None. FINDINGS: BONES/JOINTS: No acute findings. No lytic or blastic lesions. SOFT TISSUES: Unremarkable. RAD/Bone Survey Comp(Axial&Append) IMPRESSION: Normal skeletal x-rays. Electronically Signed: Kunal Sam MD at 22:29 EDT ,
== END | disposition home or self-care (01) ==
LOC: RAD 13:45
PROVIDERS: PCP Family Medicine; Referring Provider Family Medicine; Visit Provider Family Medicine
DX: M89.9 Disorder of bone, unspecified (principal)
CPT/HCPCS: 77075

== ENCOUNTER → 2023-03-10 | Outpatient (CLI) | payer BC, SELFPAY ==
[2023-03-10 12:43] LABS: Vitamin B12 536 pg/mL (211-911); Vitamin D,25 Hydroxy 52.8 ng/mL
[2023-03-10 12:53] LABS: Absolute Lymphocyte Count 2.98 X10^3/uL (0.83-4.51); Absolute Neutrophil Count 4.4 X10^3/uL (2.0-7.7); Basophil# 0.06 X10^3/uL; Basophil% 0.7 % (0-1); Eosinophils% 4.7 % (0-5); Hematocrit 43.2 % (37-47); Hemoglobin 14.1 g/dL (12.0-15.0); Lymphocyte # 2.98 X10^3/ul (0.83-4.51); Lymphocyte % 34.9 % (19-41); Mean Corp Hgb Conc 32.6 g/dL (32-36); Mean Corpuscular Hgb 29.9 pg (27.0-32.0); Mean Corpuscular Volume 91.5 fL (81-99); Mean Platelet Vol. 11.1 fl (6.2-12.0); Monocyte# 0.66 X10^3/uL; Monocyte% 7.7 % (0-10); NRBC Flagged by Analyzer 0 % (0-5); Neutrophil # 4.43 X10^3/uL (2.7-7.7); Neutrophil % 51.8 % (47-70); Platelet Count 277 K/mm3 (150-450); RBC Distribution Width CV 12.7 % (11.6-14.6); RBC Distribution Width SD 42.4 fl (35.1-43.9); Red Blood Count 4.72 M/mm3 (4.2-5.4); White Blood Count 8.6 K/mm3 (4.4-11.0)
[2023-03-10 13:16] LABS: AST(SGOT) 19 U/L (15-37); Alanine Aminotransfer ALT/SGPT 16 U/L (13-56); Albumin, Serum 3.9 g/dL (3.2-5.0); Alkaline Phosphatase 99 U/L (45-117); Anion Gap 7 (5-15); BUN 17 mg/dL (7-18); BUN/Creat Ratio 16.2 RATIO (10-20); Calcium,Total 9.9 mg/dL (8.5-10.1); Chloride 101 mmol/L (98-107); Cholesterol 195 mg/dL (200); Creatinine, Serum 1.05 mg/dL (0.55-1.02); EST Glomerular Filtration Rate 57 mL/min (>60); Est Glom Filt Rate - Afr Amer 69 mL/min (>60); Glucose 94 mg/dL (74-106); High Density Lipoprotein 52 mg/dL; Potassium 4.1 mmol/L (3.5-5.1); Protein, Total 7.9 g/dL (6.4-8.2); Sodium Level 137 mmol/L (136-145); T4 Free Direct 1.08 ng/dL (0.76-1.46); Thyroid Stim Hormone (TSH) 1.77 uIU/mL (0.358-3.74); Triglycerides 92 mg/dL; Very Low Density Lipoprotein 18 mg/dL (5-40)
== END | disposition home or self-care (01) ==
LOC: MTLAB 09:18
PROVIDERS: PCP Family Medicine; Referring Provider Nurse Practitioner Family; Visit Provider Nurse Practitioner Family
DX: Z00.00 Encounter for general adult medical examination without abnormal findings (principal); I10 Essential (primary) hypertension; E53.8 Deficiency of other specified B group vitamins; E55.9 Vitamin D deficiency, unspecified
CPT/HCPCS: 36415; 80053; 80061; 82306; 82607; 84439; 84443; 85025

== ENCOUNTER → 2023-03-31 | Outpatient (CLI) | payer BC, SELFPAY ==
--- NOTE | 2023-03-31 13:49 | BI_ITS ---
MAMMOGRAPHY - BILATERAL SCREENING REASON FOR EXAM: Female, 62 years old. Routine annual screening examination. PERTINENT HISTORY: Non-contributory. TECHNIQUE: Digital bilateral breast walter (3D mammographic acquisition) in the CC and MLO projections. 2-D mediolateral oblique (MLO) and craniocaudad (CC) views of both breasts were obtained. CAD: Full Field Digital Mammography with Computer Added Detection was performed. COMPARISON: Comparison is made with prior study dated March 28, 2022 and February 28, 2021. FINDINGS: Breast Composition: The breasts are almost entirely fatty. There are no dominant masses or suspicious calcifications. Stable small benign-appearing bilateral axillary lymph nodes. No other significant abnormalities are identified. There has been no significant change since the prior study. BI/SCRN MAMM (CAD)W/WALTER BILAT IMPRESSION: Stable bilateral screening mammogram. Yearly follow-up mammogram recommended. (A) ASSESSMENT CATEGORY: BIRADS Category 2: Benign. A letter regarding these results will be sent to the patient by the facility within 30 days. Approximately 10% of breast cancers are not detected by mammography. A normal mammogram should not delay biopsy of a clinically suspicious abnormality. [id number] Electronically Signed: Rene Kumar MD at 8:11 EDT ,
== END | disposition home or self-care (01) ==
LOC: OPBI 13:48
PROVIDERS: PCP Family Medicine; Referring Provider Nurse Practitioner Family; Visit Provider Nurse Practitioner Family
DX: Z12.31 Encounter for screening mammogram for malignant neoplasm of breast (principal)
CPT/HCPCS: 77063; 77067

== ENCOUNTER → 2023-10-24 | Outpatient (CLI) | payer BC, SELFPAY ==
[2023-10-24 10:34] LABS: ALB/GLOB Ratio 1.2 RATIO (0.9-2.4); AST(SGOT) 15 U/L (15-37); Alanine Aminotransfer ALT/SGPT 19 U/L (13-56); Albumin, Serum 4.1 g/dL (3.2-5.0); Alkaline Phosphatase 76 U/L (45-117); Anion Gap 2 (5-15); BUN 13 mg/dL (7-18); BUN/Creat Ratio 13.3 RATIO (10-20); Calcium,Total 9.4 mg/dL (8.5-10.1); Chloride 101 mmol/L (98-107); Creatinine, Serum 0.98 mg/dL (0.55-1.02); EST Glomerular Filtration Rate 61 mL/min (>60); Est Glom Filt Rate - Afr Amer 74 mL/min (>60); Globulin 3.4 g/dL (2.2-4.2); Glucose 106 mg/dL (74-106); Magnesium 2.2 mg/dL (1.6-2.6); Potassium 3.9 mmol/L (3.5-5.1); Protein, Total 7.5 g/dL (6.4-8.2); Sodium Level 134 mmol/L (136-145)
== END | disposition home or self-care (01) ==
LOC: MTLAB 09:08
PROVIDERS: PCP Family Medicine; Referring Provider Nurse Practitioner Family; Visit Provider Nurse Practitioner Family
DX: K59.09 Other constipation (principal); I10 Essential (primary) hypertension
CPT/HCPCS: 36415; 80053; 83735

== ENCOUNTER 2024-01-20 10:56 | Outpatient (RCR) | payer BC, SELFPAY | END 2024-01-20 23:59 | LOC: NS 10:56 | PROVIDERS: PCP Family Medicine; Referring Provider Family Medicine; Visit Provider Family Medicine | DX: Z71.3 Dietary counseling and surveillance (principal); I10 Essential (primary) hypertension; K59.09 Other constipation | CPT/HCPCS: 97802 ==

== ENCOUNTER 2024-02-09 13:50 | Outpatient (RCR) | payer BC, SELFPAY | END 2024-02-20 23:59 | LOC: NS 13:50 | PROVIDERS: PCP Family Medicine; Referring Provider Family Medicine; Visit Provider Family Medicine | DX: Z71.3 Dietary counseling and surveillance (principal); I10 Essential (primary) hypertension; K58.1 Irritable bowel syndrome with constipation | CPT/HCPCS: 97803 ==

== ENCOUNTER 2024-03-01 13:29 | Outpatient (RCR) | payer BC, SELFPAY | END 2024-03-21 23:59 | LOC: NS 13:29 | PROVIDERS: PCP Family Medicine; Referring Provider Family Medicine; Visit Provider Family Medicine | DX: Z71.3 Dietary counseling and surveillance (principal); I10 Essential (primary) hypertension; K58.1 Irritable bowel syndrome with constipation | CPT/HCPCS: 97803 ==

== ENCOUNTER 2024-03-30 09:28 | Outpatient (RCR) | payer BC, SELFPAY | END 2024-04-21 23:59 | LOC: NS 09:28 | PROVIDERS: PCP Family Medicine; Referring Provider Family Medicine; Visit Provider Family Medicine | DX: Z71.3 Dietary counseling and surveillance (principal); K59.09 Other constipation; I10 Essential (primary) hypertension | CPT/HCPCS: 97803 ==

== ENCOUNTER → 2024-04-14 | Outpatient (CLI) | payer BC, SELFPAY ==
--- NOTE | 2024-04-14 12:16 | BI_ITS ---
MAMMOGRAPHY - BILATERAL SCREENING REASON FOR EXAM: Female, 63 years old. Routine annual screening examination. PERTINENT HISTORY: Non-contributory. TECHNIQUE: Digital bilateral breast walter (3D mammographic acquisition) in the CC and MLO projections. 2-D mediolateral oblique (MLO) and craniocaudad (CC) views of both breasts were obtained. CAD: Full Field Digital Mammography with Computer Added Detection was performed. COMPARISON: Comparison is made with prior study March 31, 2023 and March 28, 2022. FINDINGS: Breast Composition: The breasts are almost entirely fatty. There are no dominant masses or suspicious calcifications. No other significant abnormalities are identified. There has been no significant change since the prior study. BI/SCRN MAMM (CAD)W/WALTER BILAT IMPRESSION: Stable bilateral screening mammogram. Yearly follow-up mammogram recommended. (A) ASSESSMENT CATEGORY: BIRADS Category 1: Negative. A letter regarding these results will be sent to the patient by the facility within 30 days. Approximately 10% of breast cancers are not detected by mammography. A normal mammogram should not delay biopsy of a clinically suspicious abnormality. [id number] Electronically Signed: Rene Kumar MD at 13:23 EDT ,
== END | disposition home or self-care (01) ==
LOC: OPBI 12:15
PROVIDERS: PCP Family Medicine; Referring Provider Family Medicine; Visit Provider Family Medicine
DX: Z12.31 Encounter for screening mammogram for malignant neoplasm of breast (principal)
CPT/HCPCS: 77063; 77067

== ENCOUNTER 2024-05-19 09:24 | Outpatient (RCR) | payer BC, SELFPAY | END 2024-05-22 23:59 | LOC: NS 09:24 | PROVIDERS: PCP Family Medicine; Referring Provider Family Medicine; Visit Provider Family Medicine | DX: Z71.3 Dietary counseling and surveillance (principal); I10 Essential (primary) hypertension; K59.09 Other constipation | CPT/HCPCS: 97803 ==

== ENCOUNTER → 2024-12-31 | Outpatient (CLI) | payer OTHER, SELFPAY ==
--- NOTE | 2024-12-31 14:05 | RAD_ITS ---
EXAM: XR Right Knee Complete, 4 or More Views CLINICAL INDICATION: PAIN TECHNIQUE: Four or more views of the right knee. COMPARISON: No relevant prior studies available. FINDINGS: BONES/JOINTS: Mild tricompartmental degenerative changes of the knee joint. No acute fracture. No dislocation. SOFT TISSUES: Unremarkable. RAD/Knee 4 or More Views IMPRESSION: Degenerative changes as above. Reading Location: [facility]
== END | disposition home or self-care (01) ==
LOC: MTRAD 14:04
PROVIDERS: PCP Family Medicine; Referring Provider Family Medicine; Visit Provider Family Medicine
DX: M25.561 Pain in right knee (principal)
CPT/HCPCS: 73564

== ENCOUNTER 2025-01-25 16:03 | Emergency (ER) | payer OTHER, SELFPAY ==
[2025-01-25 16:04] VITALS: BP 153/87; PULSE 86; RESP 18; TEMP 36.4; O2SAT 98; BMI 24.7
--- NOTE | 2025-01-25 16:13 | CT_ITS ---
PROCEDURE: BRAIN/HEAD WITHOUT CONTRAST 01/25/2025 REASON FOR EXAM: TRAUMA TECHNIQUE: Head CT without intravenous contrast. Coronal and Sagittal reconstruction series were provided. One or more dose reduction techniques were used (e.g., Automated exposure control, adjustment of the mA and/or kV according to patient size, use of iterative reconstruction technique. FINDINGS: * ACUTE: No acute infarct or hemorrhage. No mass effect or herniation. * BRAIN PARENCHYMA: Signal intensities are within normal limits for age. * VENTRICLES/EXTRA-AXIAL SPACES: No hydrocephalus or extra-axial fluid collections. * EXTRACRANIAL STRUCTURES: Visualized osseous structures are normal. Mild right frontal scalp soft tissue swelling with underlying hematoma. CT/Brain/Head without Contrast IMPRESSION: No acute intracranial abnormality. Mild frontal scalp soft tissue swelling with underlying hematoma. Reading Location: [facility]
--- NOTE | 2025-01-25 16:13 | ED.VIS.FALL ---
HPI HPI - Fall History of Present Illness Chief Complaint: Fall Narrative Narrative: 64-year-old female past medical history of depression anxiety, hypertension, not on blood thinners presents with her status post fall. She states that approximately 30 minutes ago she was in her garage, and tripped over a makeshift wooden structure. She hit her head on a table there. She denies any neck pain, no loss of consciousness but has mild headache. She sustained an injury to her forehead. She denies any paresthesias of her arms or legs, no other symptoms. No nausea or vomiting. PFSH PFSH Medical History Chronic neck and back pain Limb weakness Peripheral neuropathy Hiatal hernia with GERD Internal hemorrhoid, bleeding OAB (overactive bladder) Chronic constipation Vitamin deficiency Frequent UTI IBS (irritable bowel syndrome) Hypertension Home Medications ?Medication ?Instructions ?Recorded ?Last Taken ?Type esomeprazole magnesium 40 mg 40 mg PO DAILY 09/12/20 Unknown History capsule,delayed release loratadine-pseudoephedrine ER 10 1 tab PO DAILY 09/12/20 Unknown History mg-240 mg tablet,extended [id number] (Claritin-D 24 Hour) mecobalamin (vitamin B12) 10,000 1,000 mcg IM QMONTH Fatigue 09/12/20 Unknown History mcg solution for injection polyethylene glycol 3350 17 17 g PO DAILY PRN constipation 09/12/20 Unknown History gram/dose oral powder (Miralax) spironolactone 25 mg tablet 25 mg PO DAILY 09/12/20 Unknown History cephalexin 250 mg capsule 250 mg PO 06/19/21 Unknown History lactobacillus combo no.6 4 billion cell PO 06/19/21 Unknown History cell tablet citalopram 40 mg tablet 40 mg PO DAILY 03/31/24 Unknown History d-mannose 500 mg capsule 1,300 mg PO QDAY 03/31/24 Unknown History oxybutynin chloride 10 mg 10 mg PO DAILY 03/31/24 Unknown History tablet,extended release 24 hr Allergy/AdvReac Type Severity Reaction Status Date / Time No Known Allergies Allergy Verified 01/25/25 16:04 Family History Mother Anemia Anesthesia complication Asthma Arthritis History of blood transfusion Depression Diabetes CVA (cerebral vascular accident) Sister Anesthesia complication Arthritis Mast cell activation syndrome Diabetes Severe allergy Grandmother Depression Myocardial infarction Heart disease Brother Diabetes Father Colon cancer Surgical History History of carpal tunnel release History of tonsillectomy History of bowel blockage History of umbilical hernia repair Social History Smoking Status: Never smoker Electronic Cigarette Use: not used second hand exposure: No alcohol intake: current alcohol intake frequency: holidays/special occasions only substance use type: does not use ROS ROS ED ROS Narrative Review of systems positive for hematoma on forehead, positive headache. No reported loss of consciousness, no neck pain. No paresthesias. Denies other injury. No nausea or vomiting. EXAM Physical Exam Narrative Exam Narrative: GCS 15. ABCs are intact. Inspection of the forehead does reveal a moderately sized/egg sized hematoma without crepitance. Neck is soft and supple without vertebral point tenderness or bony step-off. No pain with full range of motion of neck. PERRL, EOMI. Cardiovascular examination reveals a regular rate and rhythm. Lungs are clear to auscultation bilaterally. The abdomen is soft, nontender, without guarding or rebound. Positive bowel sounds. Neurological examination is nonfocal, nonlateralizing. Able to raise arms above head without difficulty. Const Vital Signs: 01/25/25 16:04 01/25/25 16:32 Temperature 97.6 F L Temperature Source Oral Pulse Rate 86 Respiratory Rate 18 Respiratory Effort Normal Non-Labored Respiratory Depth Normal Respiratory Pattern Normal Blood Pressure 153/87 H Blood Pressure Mean 109 Pulse Ox 98 Oxygen Delivery Method Room Air Room Air MDM MDM MDM Narrative Medical decision making narrative: Differential diagnosis includes but not limited to hematoma forehead versus skull fracture versus intracranial hemorrhage versus closed head injury. I do not feel that she requires any imaging of the neck because she has no pain. Although there was no loss of consciousness and she is not on blood thinners, I do feel that given her outward signs of trauma that she merits CT of the brain to look for hemorrhage or fracture. She was given an ice pack for comfort and CT of the brain obtained. I reviewed the radiology report of the CT of the brain and there is no acute intracranial abnormality. There is noted frontal scalp soft tissue swelling with hematoma. At this point in time, she was given ibuprofen 600 mg for analgesia here and I feel she can be discharged to follow-up with her primary care provider. She was provided with close head injury instructions as well. Return instructions to the emergency department were reviewed. Disposition is discharged home, in stable condition. History & Record Review Discussion w/independent historian: Patient and Family Radiography Diagnostic Testing: Clinical Impression(s) from Imaging Studies Brain CT 01/25/25 16:13 IMPRESSION: No acute intracranial abnormality. Mild frontal scalp soft tissue swelling with underlying hematoma. [facility] Triage Chief Complaint: Fall ED Provider: Kp Trevino Dx/Rx/DC Orders Clinical Impression: Fall, Traumatic hematoma of forehead, Closed head injury Instructions: ED Mechanical Fall, ED Head Injury (Adult), ED Hematoma Prescriptions: No Action spironolactone 25 mg tablet 25 mg PO DAILY Patient Comments: TAKE 1 TABLET BY MOUTH ONCE DAILY esomeprazole magnesium 40 mg capsule,delayed release(DR/EC) 40 mg PO DAILY Patient Comments: TAKE 1 CAPSULE BY MOUTH EVERY DAY loratadine-pseudoephedrine [Claritin-D 24 Hour] 10-240 mg tablet extended release 24 hr 1 tab PO DAILY polyethylene glycol 3350 [Miralax] 17 gram/dose powder 17 g PO DAILY PRN (Reason: constipation) mecobalamin (vitamin B12) 10,000 mcg recon soln 1,000 mcg IM QMONTH lactobacillus combo no.6 4 billion cell tablet PO cephalexin 250 mg capsule 250 mg PO Patient Comments: TAKE 1 CAPSULE BY MOUTH ONCE DAILY AT BEDTIME FOR 90 DAYS Primary Care Provider: Donta Choudhary Referrals: Donta Choudhary, DO [Primary Care Provider] - 1 Week if not improving Activity Restrictions/Additional Instructions: [id number] medications like Tylenol or ibuprofen as directed for pain. Follow-up with your primary care provider in 7 to 10 days if not improving. Return to the emergency department with new or worsening symptoms. Print Language: Kyrgyz Disposition Disposition: Home, Self Care
[2025-01-25] MEDS: Ibuprofen 600 MG Tablet PO (17:07)
[2025-01-25 17:08] VITALS: BP 133/80; PULSE 82; RESP 16; TEMP 36.3; O2SAT 100
== END 2025-01-25 17:09 | disposition home or self-care (01) ==
PROVIDERS: Emergency Provider Emergency Medicine; PCP Family Medicine; Visit Provider Emergency Medicine
DX: S09.90XA Unspecified injury of head, initial encounter (principal); S00.83XA Contusion of other part of head, initial encounter; W19.XXXA Unspecified fall, initial encounter
CPT/HCPCS: 70450; 99282

== ENCOUNTER 2025-02-23 13:00 | Outpatient (RCR) | payer OTHER, SELFPAY ==
--- NOTE | 2024-10-25 17:50 | HP.PTEVAL_ITS ---
Patient's Visit Information Visit Information Visit Information: MAEGAN PADGETT is a 63 year old F referred to Physical Therapy by Dr. Yuliet Brown MD with a diagnosis of HESITANCY OF VOIDING, HIGH TENSION PELVIC FLOOR DYSFUNCTION. Date of Evaluation: 10/25/24 Physical Therapist: Maribell Infante PT, Cert MDT Visit Plan Frequency: 1x/Week Duration: 2-4 Months Plan: ISSUE BLADDER DIARY. FURTHER ASSESSMENT OF PELVIC FLOOR. PF THERAPY FOR LENGTHENING/RELAXATION TRAINING. URINARY URGE AND FREQUENCY EDUCATION. HEALTHY BLADDER, BACK AND POSTURE HABIT EDUCATION. CORE STRENGTHENING. ANDREA LE ROM, STRETCHING AND STRENGTHENING. TRAINING IN ABDOMINAL CAVITY PRESSURE MGMT WITH ADL'S. HEP INST. Subjective Subjective: Work/Leisure: RETIRED. Disability: NO Present symptoms: PATIENT REPORTS INTERMITTENT DIFFICULTY URINATING. PATIENT ALSO REPORTS SHE SOMETIMES HAS URINARY LEAKING WHEN SHE GETS URGE AND CAN'T MAKE IT TO THE BATHROOM IN TIME. SHE SOMETIMES WEARS PROTECTION RANGING FROM A PANY LINER TO DEPENDS AND SOMETIMES DOESN'T WEAR ANY PROTECTION. SHE REPORTS SHE TYPICALLY DOES NOT HAVE LEAKING WHEN SHE COUGHS AND SNEEZES. Present since: ABOUT 5 YEARS. Pain Scale: N/A Is it getting better, worse or staying the same: STAYING THE SAME Commenced as a result of: NO APPARENT REASON Worse: BEARING DOWN TO HAVE A BOWEL MVMT Better: PELVIC FLOOR THERAPY SEEMED TO START TO HELP 2-3 YEARS AGO - STATES SHE WENT ABOUT 5 TIMES AND THEN HAD TO STOP DUE TO SOME FAMILY THINGS GOING ON. Previous history/Previous treatment: SURGERY BOWEL BLOCKAGE 2016 THEN UMBILICAL SX 2017 Treatment this episode: WAS TAKING BLADDER MEDICINE BUT OFF OF IT NOW. Gait: INDEP WITHOUT AD. Fluid Intake: 4 to 5 16 oz diet cokes a day and sometimes no water. Doesn't really drink anything else. How long can you delay the need to urinate: ZERO TO 15 MIN. Prolapse (Falling out feeling): AT TIMES WHEN DIFFICULTY HAVING BM. NO SURGERY RECOMMENDED AT THIS TIME. Frequency of Urination: UNSURE. HAS NOT DONE BLADDER DIARY. Ability to stop urine flow: ABLE TO PARTIALLY STOP THE FLOW Ability to initiate urine stream: SOME HAS DIFFICULTY Dyspareunia: SOMETIMES Bowel Incontinence: SOMETIMES - REPORTS HAVING RECENT COLONOSCOPY AND BEING PUT ON MEDICATION. Unexplained weight loss: NO PMH/Recent major surgery: Chronic neck and back pain Limb weakness Peripheral neuropathy Hiatal hernia with GERD Internal hemorrhoid, bleeding OAB (overactive bladder) Chronic constipation Vitamin deficiency Frequent UTI IBS (irritable bowel syndrome) Hypertension History of carpal tunnel release History of tonsillectomy [History of bowel blockage] History of umbilical hernia repair Objective Objective: Sitting/Standing Posture: INCREASED KYPHOSIS. NO RELEVANT LATERAL LUMBAR SHIFT. L ILIAC CREST HIGHER THAN R. SCOLIOTIC APPEARING SPINE. Other Observations: INDEP GAIT AND TRANSFERS. Sensory deficit: ANDREA LE LIGHT TOUCH SENSATION GROSSLY INTACT AND SYMMETRICAL ROM deficit: ANDREA LE HIP ADDUCTOR, HIP FLEXOR, HS, ANDREA HIP IR/ER AND CALF TIGHTNESS Motor deficit: ANDREA HIPS 4/5, KNEES 5/5, ANKLES 5/5 Dural Signs: NEGATIVE ANDREA LE'S. Lumbar mvmt loss: flex - MOD. ext - JUAN PABLO R SG - MOD L SG - MOD PATIENT DENIES PAIN WITH LUMBAR ROM TESTING ALL PLANES. Core strength: POOR Palpation: TENDERNESS WITH LIGHT PALPATION OF LOW BACK AND ANDREA LATERAL HIP REGIONS. OTHER: PATIENT REFUSED EXAM OF PELVIC FLOOR TODAY BUT AGREEABLE NEXT VISIT. NO SPECIFIC EXPLANATION GIVEN BUT STATES SHE IS FAMILAR WITH TESTING FROM LAST EXPERIENCE WITH PT. FUNCTIONAL SCREEN: Incontinence Impact Questionnaire Score: 17 Urogenital Distress Inventory Score: 16 Goals Goal 1:: PATIENT WILL HAVE NORMALIZE VOIDING FREQUENCEY TO EVERY 2.5 TO 3.5 HOURS WITHOUT DIFFICULTY INITIATING URINE STREAM. Goal Time Frame: 4-6 Weeks Goal 2:: PATIENT WILL DEVELOP HEALTHY FLUID INTAKE HABITS WITH FLUID INTAKE OF ? BODY WEIGHT IN OUNCES PER DAY AND 2/3 BEING WATER. Goal Time Frame: 2-4 Weeks Goal 3:: PATIENT WILL HAVE DECREASE URINARY LEAKAGE EPISODES TO ONE OR LESS PER WEEK Goal Time Frame: 4-6 Weeks Goal 4:: PATIENT WILL SUCCESSFULLY DELAY VOIDING LONG NEEDED WHEN URGENCY OCCURS TO SUCCESSFULLY MAKE IT TO THE BATHROOM. Goal Time Frame: 6-8 Weeks Goal 5:: PATIENT WILL APPROPRIATELY MANAGE CHANGES IN INTRAABDOMINAL PRESSURE WITH APPROPRIATE PELVIC FLOOR MUSCLE ACTIVATION AND BREATHING TECHNIQUES. Goal 6:: PATIENT WILL BE INDEP WITH A HEP/HOME INSTRUCTIONS FOR CONTINUED IMPROVEMENT ONCE FORMAL PHYSICAL THERAPY CONCLUDES. Rehabilitation Potential Physical Therapy Diagnosis: CORE AND LE TIGHTNESS AND WEAKNESS WITH SIGNS OF URGE INCONTINENCE AND HIGH TONE PELVIC FLOOR. Rehabilitation Potential: Good Anticipated Interventions Patient/Client Instruction: Educate patient on: Condition, Plan of Care and Risk Factors For the Purpose of:: To improve self management Therapeutic Exercise to Include: Strength training, Body mechanics, Postural training, Flexibilty training, Neuromotor development and Relaxation training For the Purpose of:: To improve muscle performance and motor function, To increase tolerance to activity/condition/position, To improve ability of physical actions for home/community/work/leisure and To decrease soft tissue restriction Manual Therapy Techniques to Include: Trigger point massage and Soft tissue mobilization Comment: NEEDED/APPROPRIATE AND ALLOWABLE BY PATIENT For the Purpose of:: To improve muscle performance and motor function, To improve ability of physical actions for home/community/work/leisure, To decrease soft tissue restriction and To increase flexibility/ROM Text: Thank you for the opportunity to evaluate your patient. For Medicare and Medicare HMO plans, please review the plan of care and approve it. It will need to be FAXED BACK to us at [phone] for Medicare purposes. For Medicare only, by signing this I certify the plan of care. Please let me know if there are questions or concerns regarding this plan of care. Physician Signature: Date:___
--- NOTE | 2025-01-12 14:44 | HP.PTREVAL ---
Re-Evaluation Intro: Dr. Yuliet Brown MD, and Dr. Donta Choudhary, It has been my pleasure to treat MAEGAN PADGETT over the last 6 visits for HESITANCY OF VOIDING, HIGH TENSION PELVIC FLOOR DYSFUNCTION. She was evaluated today for R KNEE PAIN with an order from Dr. Choudhary. Please see the progress note below for an update on the physical therapy plan of care! Subjective Subjective: PATIENT PRESENTS TO PT TODAY REQUESTING TO JUST HAVE HER R KNEE EXAMINED. SHE REPORTS DR. CHOUDHARY THINKS SHE TORE SOMETHING IN HER KNEE WHEN SHE SLIPPED AND FELL 11/27/24 ON [place] WHILE ON VACATION TWICE IN ONE HOUR AT THE [facility]. SHE STATES HE WANTS HER TO TRY PHYSICAL THERAPY FIRST AND SHE IS HOPING SHE DOESN'T NEED SURGERY. SHE REPORTS THE PAIN GOES ALL THE WAY FROM HER R LOW BACK DOWN TO HER R ANKLE. SHE ALSO HAS C/O INTERMITTENT NUMBNESS AND TINGLING DOWN HER LEG. SHE STATES SHE ALSO HAS NEUROPATHY. THE PAIN IS RANGING 4-8/10. IT GETS WORSE WITH DAILY CHORES, WALKING A LOT AND BEING UP ON IT IN GENERAL. IT IS BETTER IN THE MORNING AND WORSE THE DAY PROGRESSES. DECREASES PAIN WITH ALEVE AND REST. PATIENT ALSO REPORTS DR. CHOUDHARY TOLD HER SHE HAS A BAKERS CYST. R KNEE X-RAY: A LITTLE BIT OF ARTHRITIS BUT NO FX PER PATIENT REPORT. Objective Objective/Function: THIS PATIENT AMBULATES INDEP'LY INTO PT TODAY WITHOUT ANY AD'S WITH INCREASED TRUNK FLEXION, DECREASED CADANCE AND DECREASED WT BEARING TIME R LE COMPARED TO L. SHE IS UNABLE TO TRANSFER SIT TO STAND WITHOUT UE ASSIST. Sensory deficit: ANDREA LE LIGHT TOUCH SENSATION IS GROSSLY INTACT AND SYMMETRICAL WITH GROSS TENDERNESS THROUGH OUT ANDREA LE'S. ROM deficit: R KNEE ROM IN SUPINE IS 5-0-95 Degrees WITH C/O ERP FLEX AND EXT. L KNEE ROM IS 5-0-120 Degrees WITH MILD C/O PAIN COMPARED TO R. ANDREA CALF TIGHTNESS. Motor deficit: R HIP 4-/5, KNEE 3-/5, ANKLE 4/5. L HIP 4/5, KNEE 4-/5, ANKLE 5/5. Dural Signs: + R LE Lumbar mvmt loss: flex - MIN - INCREASES R LOW BACK AND R LE ext - JUAN PABLO - INCREASES LOW BACK R>L AND R LE PAIN - W R SG - JUAN PABLO - INCREASES R LB AND R LE L SG - MOD - INCREASES R LB. Core strength: POOR Palpation: TENDERNESS AND MILD SWELLING R LUMBAR REGION. PATIENT ALSO HAS C/O R BUTTOCK AND R GREATER TROCH REGION TENDERNESS ALONG WITH GENERALIZED TENDERNESS/HPERSENSATIVITY OF ANDREA LE'S. Plan Plan Plan: AQUATIC THERAPY 2X'S A WEEK X 4-6 WKS FOR: LOW BACK AND ANDREA LE (ESPECIALLY R KNEE) PAIN RELIEF. CORE STRENGTHENING WITH NEUTRAL SPINE ONLY. ANDREA LE ROM, STRETCHING AND STRENGTHENING WITH FOCUS ON RESTORING R KNEE ROM FIRST. HOLD PELVIC FLOOR THERAPY AT PATIENTS REQUEST. Goals Goals Goal 1:: PATIENT WILL HAVE NORMALIZE VOIDING FREQUENCEY TO EVERY 2.5 TO 3.5 HOURS WITHOUT DIFFICULTY INITIATING URINE STREAM. Goal Time Frame: 4-6 Weeks Goal 2:: PATIENT WILL DEVELOP HEALTHY FLUID INTAKE HABITS WITH FLUID INTAKE OF ? BODY WEIGHT IN OUNCES PER DAY AND 2/3 BEING WATER. Goal Time Frame: 2-4 Weeks Goal 3:: PATIENT WILL HAVE DECREASE URINARY LEAKAGE EPISODES TO ONE OR LESS PER WEEK NEW GOAL: PATIENT WILL BE ABLE TO PERFORM 8 STS IN 30 SEC WITHOUT UE ASSIST TO DEMONSTRATE IMPROVED LE FUNCTIONAL STRENGTH. Goal Time Frame: 4-6 Weeks Goal 4:: PATIENT WILL SUCCESSFULLY DELAY VOIDING LONG NEEDED WHEN URGENCY OCCURS TO SUCCESSFULLY MAKE IT TO THE BATHROOM. NEW GOAL: PATIENT WILL HAVE NORMALIZED GAIT AND TUG TIME OF 10 SEC OR LESS TO DEMONSTRATED IMPROVED GAIT STABILITY. Goal Time Frame: 4-6 Weeks Goal 5:: PATIENT WILL APPROPRIATELY MANAGE CHANGES IN INTRAABDOMINAL PRESSURE WITH APPROPRIATE PELVIC FLOOR MUSCLE ACTIVATION AND BREATHING TECHNIQUES. NEW GOAL: PATIENT WILL HAVE INCREASED R KNEE ROM TO 5-0-120 DEG TO IMPROVE FUNCTION. Goal Time Frame: 4-6 Weeks Goal 6:: PATIENT WILL BE INDEP WITH A HEP/HOME INSTRUCTIONS FOR CONTINUED IMPROVEMENT ONCE FORMAL PHYSICAL THERAPY CONCLUDES. NEW GOAL: DECREASE R LE PAIN BY AT LEAST 50% TO EASE ADL'S. Goal Time Frame: 4-6 Weeks Anticipated Interventions Anticipated Interventions Patient/Client Instruction: Educate patient on: Condition, Plan of Care and Risk Factors For the Purpose of:: To improve self management Therapeutic Exercise to Include: Strength training, Body mechanics, Postural training, Flexibilty training, Neuromotor development and Relaxation training For the Purpose of:: To improve muscle performance and motor function, To increase tolerance to activity/condition/position, To improve ability of physical actions for home/community/work/leisure and To decrease soft tissue restriction Manual Therapy Techniques to Include: Trigger point massage and Soft tissue mobilization Comment: NEEDED/APPROPRIATE AND ALLOWABLE BY PATIENT For the Purpose of:: To improve muscle performance and motor function, To improve ability of physical actions for home/community/work/leisure, To decrease soft tissue restriction and To increase flexibility/ROM Re-Evaluation Ending Re-evaluation ending: Please do not hesitate to contact me at [phone] by phone or if you have questions or concerns regarding this new plan of care! Sincerely, Maribell Infante, PT, Cert MDT
--- NOTE | 2025-02-23 14:30 | HP.PTDCSUM_ITS ---
Discharge Summary D/C summary: It has been my pleasure to treat MAEGAN PADGETT referred by Dr. Yuliet Brown MD, with the diagnosis of HESITANCY OF VOIDING, HIGH TENSION PELVIC FLOOR DYSFUNCTION and Dr. Choudhary for Rt. Knee pain for a total of 14 visit(s). Discharge Date: 02/23/25 Please see the following information for a summary of their discharge status. Subjective Subjective: PATIENT STATES I FEEL A LOT BETTER THAN I DID. PATIENT REPORTS 50% R KNEE IMPROVEMENT WITH PHYSICAL THERAPY THIS EPISODE OF CARE. SHE REPORTS INTERMITTENT PAIN RANGING 0-6/10. INCREASED R KNEE PAIN WITH DEEP CLEANING HER HOUSE - WASHING THE REED AND MOVING BEDROOM FURNITURE. SHE REPORTS SHE ISN'T DOING HER HEP MUCH SHE SHOULD. SHE REPORTS SHE HAS A [employer] MEMBERSHIP NOW AND PLANS TO RENEW IT SO SHE CAN CONTINUE TO USE THE POOL INDEP'LY BECAUSE IT IS HELPING SO MUCH. SHE IS REQUESTING TO BE D/C'D AT THIS TIME DUE TO LIMITED INSURANCE VISITS PER YEAR. Pain LOWER LEGS/FEET: Pain Intensity (Out of 10): 4 SPINE: Pain Intensity (Out of 10): 3 THIGHS: Pain Intensity (Out of 10): 4 R knee: Pain Intensity (Out of 10): 0 L knee: Pain Intensity (Out of 10): 4 Overall Improvement % Improvement: 50 Objective Objective/Function: PATIENT WAS SEEN TODAY FOR RE-ASSESSMENT OF PROGRESS TOWARD THE SET PT GOALS (FOR HER KNEE ASSESSMENT 01/12/25 WHEN SHE PRESENTED WITH A NEW ORDER FOR HER KNEE AND ASKED TO BE DISCHARGED FOR HER PELVIC FLOOR) AND THE NEED FOR FURTHER PHYSICAL THERAPY VS READINESS FOR DISCHARGE. THIS PATIENT HAS MADE GREAT PROGRESS WITH PT SO FAR AND IS A GOOD CANDIDATE TO CONTINUE PT BASED ON PROGRESS MADE AND ROOM FOR FURTHER IMPROVEMENT. SHE WOULD HOWEVER LIKE TO BE DISCHARGED AT THIS TIME. SHE VERBALIZED A GOOD UNDERSTANDING OF INSTRUCTIONS GIVEN THIS DATE FOR RECOMMENDED PCP FOLLOW UP IF SHE DOES NOT CONTINUE TO IMPROVE WITH EX'S GIVEN. UPON EXAM TODAY: THIS PATIENT AMBULATES INDEP'LY INTO PT TODAY WITHOUT ANY AD'S OR GROSS DEVIATIONS NOTED EXCEPT GENERALLY FLEXED POSTURE. Sensory deficit: ANDREA LE LIGHT TOUCH SENSATION IS GROSSLY INTACT AND SYMMETRICAL. ROM deficit: R KNEE ROM IN SUPINE IS 2-0-114 Degrees WITH C/O MILD ERP FLEX AND EXT. ANDREA CALF TIGHTNESS. Motor deficit: R HIP 4/5, KNEE 4/5, ANKLE 5/5. L HIP 5/5, KNEE 5/5, ANKLE 5/5. Dural Signs: NEGATIVE ANDREA LE'S. Lumbar mvmt loss: flex - MIN ext - JUAN PABLO R SG - JUAN PABLO L SG - MOD PATIENT DENIES PAIN WITH LUMBAR ROM TESTING TODAY. Core strength: FAIR 30 STS = 7 WITH HANDS ON KNEES. TUG TEST TIME: 9.36 SEC INDEP WITHOUT AD OR DEVIATION. Palpation: NO ACUTE TENDERNESS OF LOW BACK OR R LE WITH LIGHT PALPATION TODAY. Goals Goal 1:: PATIENT WILL HAVE NORMALIZE VOIDING FREQUENCEY TO EVERY 2.5 TO 3.5 HOURS WITHOUT DIFFICULTY INITIATING URINE STREAM. Goal 2:: PATIENT WILL DEVELOP HEALTHY FLUID INTAKE HABITS WITH FLUID INTAKE OF ? BODY WEIGHT IN OUNCES PER DAY AND 2/3 BEING WATER. Goal 3:: PATIENT WILL HAVE DECREASE URINARY LEAKAGE EPISODES TO ONE OR LESS PER WEEK NEW GOAL: PATIENT WILL BE ABLE TO PERFORM 8 STS IN 30 SEC WITHOUT UE ASSIST TO DEMONSTRATE IMPROVED LE FUNCTIONAL STRENGTH. Goal Progress: Progressing Goal 4:: PATIENT WILL SUCCESSFULLY DELAY VOIDING LONG NEEDED WHEN URGENCY OCCURS TO SUCCESSFULLY MAKE IT TO THE BATHROOM. NEW GOAL: PATIENT WILL HAVE NORMALIZED GAIT AND TUG TIME OF 10 SEC OR LESS TO DEMONSTRATED IMPROVED GAIT STABILITY. Goal Progress: Goal Met Goal 5:: PATIENT WILL APPROPRIATELY MANAGE CHANGES IN INTRAABDOMINAL PRESSURE WITH APPROPRIATE PELVIC FLOOR MUSCLE ACTIVATION AND BREATHING TECHNIQUES. NEW GOAL: PATIENT WILL HAVE INCREASED R KNEE ROM TO 5-0-120 DEG TO IMPROVE FUNCTION. Goal Progress: Progressing Goal 6:: PATIENT WILL BE INDEP WITH A HEP/HOME INSTRUCTIONS FOR CONTINUED IMPROVEMENT ONCE FORMAL PHYSICAL THERAPY CONCLUDES. NEW GOAL: DECREASE R LE PAIN BY AT LEAST 50% TO EASE ADL'S. Goal Progress: Progressing Plan Plan: D/C TO INDEP EX PER PATIENT REQUEST. D/C Information d/c sentence: If there are questions or concerns regarding this patient's physical therapy, please feel free to call me at [phone]. Thank you for the referral of this patient. Sincerely, Maribell Infante, PT, Cert MDT Balance/Gait/Functional tests Balance/Special Test Scores Lower Extremity Functional Score: 58 Improvement % Improvement: 50
== END 2025-02-23 19:00 | disposition home or self-care (01) ==
LOC: PT 13:00
PROVIDERS: PCP Family Medicine; Referring Provider Urology; Visit Provider Urology
DX: R39.11 Hesitancy of micturition (principal); N94.89 Other specified conditions associated with female genital organs and menstrual cycle
CPT/HCPCS: 97113; 97162; 97530

== ENCOUNTER → 2025-04-04 | Outpatient (CLI) | payer OTHER, SELFPAY ==
[2025-04-04 12:37] LABS: Hematocrit 38.1 % (37-47); Hemoglobin 12.8 g/dL (12.0-15.0); Immature Granulocytes Count 0.010 X10^3/uL (0.0-0.0); Mean Corp Hgb Conc 33.6 g/dL (32-36); Mean Corpuscular Volume 92.0 fL (81-99); Mean Platelet Vol. 11.1 fl (6.2-12.0); NRBC Flagged by Analyzer 0 % (0-5); Platelet Count 234 K/mm3 (150-450); RBC Distribution Width CV 12.5 % (11.6-14.6); RBC Distribution Width SD 41.3 fl (35.1-43.9); Red Blood Count 4.14 M/mm3 (4.2-5.4); White Blood Count 6.8 K/mm3 (4.4-11.0)
[2025-04-04 12:53] LABS: Color, Urine Yellow (Yellow); Glucose, Dipstick Normal (Normal); Ketone-Dipstick Negative (Negative); Leukocyte Esterase-Dipstick 25 /ul (Negative); Nitrite-Dipstick Negative (Negative); Occult Blood-Urine Negative /ul (Negative); Protein-Dipstick 15 mg/dl (Negative); Specific Gravity, Urine 1.010 (1.002-1.030); Urine Bilirubin Dipstick Negative (Negative)
[2025-04-04 13:17] LABS: AST(SGOT) 24 U/L (<=31); Alanine Aminotransfer ALT/SGPT 20 U/L (<=34); Albumin, Serum 4.4 g/dL (3.4-4.8); Alkaline Phosphatase 62 U/L (35-104); Anion Gap 10 (5-15); BUN 13 mg/dL (4-19); BUN/Creat Ratio 16.0 RATIO (10-20); Calcium,Total 9.1 mg/dL (7.6-11.0); Carbon Dioxide 27.9 mmol/L (21.0-32.0); Chloride 96 mmol/L (98-108); Cholesterol 179 mg/dL (<=200); Globulin 2.5 g/dL (2.2-4.2); Glucose 74 mg/dL (70-99); Low Density Lipoprotein Calc. 93 mg/dL; Potassium 4.1 mmol/L (3.3-5.1); Triglycerides 60 mg/dL; Very Low Density Lipoprotein 12 mg/dL (5-40); cholesterol:hdl ratio screen 2.40
--- OUTSIDE RECORDS SUMMARY | 2025-04-04 17:50 | XMS RPT_ITS | CCD ---
Author Organization [facility] Care Team Providers Care Metal Cans Supervisor Name Role Phone GLENNA, GERMAINE T Unavailable Unavailable LAKESHA, LUISDAVID GARCIAORY Unavailable Unavailab le GLENNA, GERMAINE T Unavailable Unavailable LAKESHA, LUIS ROMINA Unavailable Unavailab le GLENNA, GERMAINE T Unavailable Unavailable BETSY ELLER (PA) Unavailable Unavailable MAYO, JANINE A Unavailable Unavailable MEGHA, BETSY (PA) Unavailable Unavailable GLENNA, GERMAINE T Unavailable Unavailable GLENNA, GERMAINE T Unavailable Unavailable Mayo Dr. Janine DEJESUS Primary Care Provider Dr. Yuliet Brown MD Attending Provider Dr. Yuliet Brown MD Referring Provider Dr. Janine Choudhary DO Attending Provider Dr. Janine Choudhary DO Referring Provider Dr. Janine Choudhary DO Primary Care Provider Kp Trevino MD Attending Provider [phone] Kp Trevino MD Emergency Provider Dr. Yuliet Brown MD Attending Provider Dr. Yuliet Brown MD Referring Provider [phone] Janine Choudhary Referring Unavailable Karina Culver Attending Unavailable MayoJanine samayoa Primary Care Unavailable MayoJanine samayoa Referring Unavailable MayoJanine samayoa Primary Care Unavailable MayoJanine samayoa Attending Unavailable Mayo, Janine Referring Unavailable MayoJanine samayoa Attending Unavailable Mayo, Janine Primary Care Unavailable Mayo, Janine Primary Care Unavailable MayoJanine samayoa Attending Unavailable Mayo, Janine Referring Unavailable Mayo, Janine Primary Care Unavailable MayoJanine samayoa Attending Unavailable Mayo, Janine Referring Unavailable MayoJanine Primary Care Unavailable Janine Choudhary Attending Unavailable Janine Choudhary Referring Unavailable Yuliet Brown Attending Unavailable Yuliet Brown Referring Unavailable Janine Choudhary Primary Care Unavailable Kp Trevino Attending Unavailable MayoJanine Primary Care Unavailable Mayo Janine Primary Care Unavailable Janine Choudhary Attending Unavailable MayoJanine Referring Unavailable Allergies Allergy Classification Reported Allergen(s) Allergy Type Date of Onset Reaction(s) Facility (2 sources) penicillin; Translations: [PENICILLIN] Drug Allergy 7 [facility] Repository (2 sources) Tetanus vaccine; Translations: [TETANUS TOXOID] Propensity to adverse reactions to drug (disorder) 7 [facility] Repository (10 sources) Penicillins; Translations: [Penicillins] Allergy to substance 1 Unknown [facility] (10 sources) Tetanus Vaccines and Toxoid; Translations: [Tetanus Vaccines and Toxoid] Propensity to adverse reactions 1 Arm Swelled up [facility] Medications Current Medications Medication Drug Class(es) Dates Sig (Normalized) Sig (Original) cephalexin 250 mg oral capsule (11 sources) Cephalosporin Antibacterial Start: 06-19-2021 Cephalexin 250 mg capsule Active 250 mg PO June 19, 2021 12:00am esomeprazole 40 mg delayed release oral capsule (11 sources) Proton Pump Inhibitor Start: 09-12-2020 take 1 capsule by mouth once daily Esomeprazole Magnesium 40 mg capsule,delayed release(DR/EC) Active 40 mg PO DAILY September 12, 2020 1:00am Lactobacillus Combo No.6 (9 sources) Start: 06-19-2021 Lactobacillus Combo No.6 Active CELL PO June 19, 2021 12:00am Lactobacillus Combo No.6 4 billion cell tablet (2 sources) Start: 06-19-2021 Lactobacillus Combo No.6 4 billion cell tablet Active NMA PO June 19, 2021 12:00am 24 hr loratadine 10 mg / pseudoephedrine sulfate 240 mg extended release oral tablet (11 sources) alpha-Adrenergic Agonist Start: 09-12-2020 take 1 tablet by mouth every twenty-four hours Loratadine-Pseudoe phedrine (Claritin-D 24 Hour) 10-240 mg tablet extended release 24 hr Active 1 {tbl} PO DAILY September 12, 2020 1:00am Start: 09-12-2020 take 1 tablet by kelsey th once daily, then take 1 tablet by mouth every twenty-four hours Loratadine-Pseudoephedrine (Claritin-D 2 4 Hour) 10-240 mg tablet extended release 24 hr Active 1 TABLET PO DAILY September 12, 2020 1:00am mecobalamin (9 sources) Start: 09-12-2020 inject 1000 ug by intramuscular injection every month Mecobalamin (Vitamin B12) Active 1000 MCG IM EVERY MONTH September 12, 2020 1:00am Mecobalamin (Vitamin B12) 10,000 mcg recon soln (2 sources) Start: 09-12-2020 inject 1000 ug by intramuscular injection every month Mecobalamin (Vitamin B12) 10,000 mcg recon soln Active 1000 ug IM EVERY MONTH September 12, 2020 1:00am polyethylene glycol 3350 36006 mg powder for oral solution (11 sources) Osmotic Laxative Start: 09-12-2020 Polyethylene Glycol 3350 (Miralax) 17 gram/dose powder Active 17 g PO DAILY as needed for constipation September 12, 2020 1:00am spironolactone 25 mg oral tablet (11 sources) Aldosterone Antagonist Start: 09-12-2020 take 1 tablet by mouth once daily Spironolactone 25 mg tablet Active 25 mg PO DAILY September 12, 2020 1:00am Completed/Discontinued Medications Medication Drug Class(es) Dates Sig (Normalized) Sig (Original) Bilateral wrist splints (11 sources) Start: 11-14-2020 End: 06-19-2021 Bilateral wrist splints Discontinued 0 .Route .MEDSUPPLY November 14, 2020 1:00am June 19, 2021 12:21pm Right and left wrist splints to be worn at night citalopram 40 mg oral tablet (2 sources) Serotonin Reuptake Inhibitor Start: 03-31-2024 take 1 tablet by mouth once daily Citalopram 40 mg tablet Discontinued 40 mg PO DAILY March 31, 2024 12:00am D-Mannose (13 sources) Start: 03-31-2024 take 1 capsule by mouth once daily D-Mannose 500 mg capsule Discontinued 1300 mg PO daily March 31, 2024 8:54am Start: 06-19-2021 End: 03-31-2024 take 1 capsule by mouth once D-Mannose 500 mg capsule Discontinued mg PO June 19, 2021 12:00am March 31, 2024 8:59am Start: 06-19-2021 take 1 mg by mouth once D-Negron ose Active MG PO June 19, 2021 12:00am doxycycline hyclate 100 mg oral capsule (11 sources) Tetracycline-class Drug Start: 06-19-2021 End: 06-29-2021 take 1 capsule by mouth twice daily Doxycycline Hyclate 100 mg capsule Discontinued 100 mg PO TWICE A DAY 11 07June 19, 2021 12:00am June 28, 2021 12:00am June 29, 2021 12:01am flurbiprofen 100 mg oral tablet (11 sources) Nonsteroidal Anti-inflammatory Drug Start: 11-14-2020 End: 06-19-2021 take 1 tablet by mouth three times daily as needed for pain Flurbiprofen 100 mg tablet Discontinued 100 mg PO THREE TIMES A DAY as needed for pain November 14, 2020 1:00am June 19, 2021 12:22pm imipramine hydrochloride 50 mg oral tablet (11 sources) Tricyclic Antidepressant Start: 09-12-2020 End: 06-19-2021 take 1 tablet by mouth at bedtime Imipramine Hcl 50 mg tablet Discontinued 50 mg PO AT BEDTIME September 12, 2020 1:00am June 19, 2021 12:22pm lubiprostone 0.008 mg oral capsule (11 sources) Chloride Channel Activator Start: 09-12-2020 End: 03-31-2024 take 1 capsule by mouth twice daily Lubiprostone 8 mcg capsule Discontinued 8 ug PO TWICE A DAY September 12, 2020 1:00am March 31, 2024 8:59am nitrofurantoin, macrocrystals 100 mg oral capsule (11 sources) Nitrofuran Antibacterial Start: 09-12-2020 End: 06-19-2021 take 1 capsule by mouth once daily as needed for urinary tract infection Nitrofurantoin Macrocrystal 100 mg capsule Discontinued 100 mg PO DAILY as needed September 12, 2020 1:00am June 19, 2021 12:22pm Take PRN for UTI prevention 24 hr oxybutynin chloride 10 mg extended release oral tablet (13 sources) Cholinergic Muscarinic Antagonist Start: 03-31-2024 take 1 tablet by mouth once daily Oxybutynin Chloride 10 mg tablet extended release 24hr Discontinued 10 mg PO DAILY March 31, 2024 12:00am Start: 09-12-2020 End: 06-19-2021 take 1 tablet by mouth once daily Oxybutynin Chloride 10 mg tablet extended release 24hr Discontinued 10 mg PO DAILY September 12, 2020 1:00am June 19, 2021 12:22pm predniSONE 10 mg oral tablet (11 sources) Start: 11-14-2020 End: 06-19-2021 take 1 tablet by mouth three to four times daily as needed for pain Prednisone 10 mg tablet Discontinued 10 mg PO DAILY as needed November 14, 2020 1:00am June 19, 2021 12:22pm May take 3-4 days for flair up pain Problems Active Problems Problem Classification Problem Date Documented Date Episodic/Chronic E Codes: Fall (1 source) Fall; Translations: [Unspecified fall, initial encounter] 02-02-2025 Episodic Essential hypertension (2 sources) Essential (primary) hypertension; Translations: [Essential (primary) hypertension] Onset: 05-23-2024 Chronic Genitourinary symptoms and ill-defined conditions (1 source) Hesitancy of micturition; Translations: [Hesitancy of micturition] Onset: 02-28-2025 Episodic Headache; including migraine (1 source) Headache; including migraine; Translations: [Headache, unspecified] Onset: 01-28-2025 Other bone disease and musculoskeletal deformities (1 source) Segmental and somatic dysfunction of pelvic region; Translations: [Segmental and somatic dysfunction of pelvic region] Onset: 02-28-2025 Episodic Other connective tissue disease (11 sources) Muscle weakness of limb; Translations: [Other symptoms and signs involving the musculoskeletal system] 06-19-2021 Episodic Other injuries and conditions due to external causes (1 source) Closed injury of head; Translations: [Unspecified injury of head, initial encounter] 02-02-2025 Episodic Other non-traumatic joint disorders (1 source) Pain in right knee; Translations: [Pain in right knee] Onset: 01-06-2025 Episodic Other upper respiratory infections (11 sources) Acute sinusitis; Translations: [Acute sinusitis, unspecified] 06-19-2021 Episodic Spondylosis; intervertebral disc disorders; other back problems (11 sources) Chronic pain; Translations: [Cervicalgia] 06-19-2021 Episodic Superficial injury; contusion (1 source) Injury of forehead; Translations: [Contusion of other part of head, initial encounter] 02-02-2025 Episodic Unclassified (1 source) Other specified postprocedural states; Translations: [Other specified postprocedural states] Onset: 07-03-2017 Unclassified (1 source) Unknown / UNK(Unknown) Onset: 03-18-2017 Varicose veins of lower extremity (2 sources) Venous varices; Translations: [Varicose veins of unspecified lower extremity with other complications] 03-31-2024 Episodic Past or Other Problems Problem Classification Problem Date Documented Da te Episodic/Chronic Abdominal hernia (1 source) Umbilical hernia without obstruction or gangrene; Translations: [Umbilical hernia without obstruction or gangrene] Onset: 06-25-2017 Episodic Abdominal pain (1 source) Unspecified abdominal pain; Translations: [Unspecified abdominal pain] Onset: 07-03-2017 Episodic Administrative/social admission (2 sources) Dietary counseling and surveillance; Translations: [Dietary counseling and surveillance] Onset: 05-23-2024 Episodic Other gastrointestinal disorders (2 sources) Constipation, unspecified; Translations: [Personal history of other diseases of the digestive system] Onset: 07-03-2017 Episodic Other screening for suspected conditions (not mental disorders or infectious disease) (1 source) Encounter for screening mammogram for malignant neoplasm of breast; Translations: [Encounter for screening mammogram for malignant neoplasm of breast] Onset: 05-06-2024 Episodic Unclassified (9 sources) History of bowel blockage 04-12-2022 Comment on above: Had a surgery to cor rect this in August of 2016 Results Test Name Value Interpretation Reference Range Facility PT D/C Summary (1)on 025 PT D/C Summary (1) [facility] [address] [place] [address] / REHABILITATION SERVICES DISCHARGE SUMMARY MR#: [id number] Acct: [id number] Name: MAEGAN PADGETT Rep #: [id number] : 1960 64 From: Maribell Infante PT, Cert. MDT Referring Dr.: Dr. Yuliet Brown MD Status: RE G RCR Insurance: [facility] [employer] Discharge Summary D/C summary: It has been my pleasure to treat MAEGAN PADGETT referred by Dr. Yuliet Brown MD, with the diagnosis of HESITANCY OF VOIDING, HIGH TENSION PELVIC FLOOR DYSFUNCTION and Dr. Choudhary for Rt. Knee pain for a total of 14 visit(s). Discharge Date: 02/23/25 Please see the following information for a summary of their discharge status. Subjective Subjective: PATIENT STATES I FEEL A LOT BETTER THAN I DID. PATIENT REPORTS 50% R KNEE IMPROVEMENT WITH PHYSICAL THERAPY THIS EPISODE OF CARE. SHE REPORTS INTERMITTENT PAIN RANGING 0-6/10. INCREA SED R KNEE PAIN WITH DEEP CLEANING HER HOUSE - WASHING THE REED AND MOVING BEDROOM FURNITURE. SHE REPORTS SHE ISN'T DOING HER HEP MUCH SHE SHOULD. SHE REPORTS SHE HAS A [employer] MEMBERSHIP NOW AND PLANS TO RENEW IT SO SHE CAN CONTINUE TO USE THE POOL INDEP'LY BECAUSE IT IS HELPING SO MUCH. SHE IS REQUESTING TO BE D/C'D AT THIS TIME DUE TO LIMITED INSURANCE VISITS PER YEAR. Pain LOWER LEGS/FEET: Pain Intensity (Out of 10): 4 SPINE: Pain Intensity (Out of 10): 3 THIGHS: Pain Intensity (Out of 10): 4 R knee: Pain Intensity (Out of 10): 0 L knee: Pain Intensity (Out of 10): 4 Overall Improvement % Improvement: 50 Objective Objective/Function: PATIENT WAS SEEN TODAY FOR RE-ASSESSMENT OF PROGRESS TOWARD THE SET PT GOALS (FOR HER KNEE ASSESSMENT 01/12/25 WHEN SHE PRESENTED WITH A NEW ORDER FOR HER KNEE AND ASKED TO BE DISCHARGED FOR HER PELVIC FLOOR) AND THE NEED FOR FURTHER PHYSICAL THERAPY VS READINESS FOR DISCHARGE. THIS PATIENT HAS MADE GREAT PROGRESS WITH PT SO FAR AND IS A GOOD CANDIDATE TO CONTINUE PT BASED ON PROGRESS MADE AND ROOM FOR FURTHER IMPROVEMENT. SHE WOULD HOWEVER LIKE TO BE DISCHARGED AT THIS TIME. SHE VERBALIZED A GOOD UNDERSTANDING OF INSTRUCTIONS GIVEN THIS DATE FOR RECOMMENDED PCP FOLLOW UP IF SHE DOES NOT CONTINUE TO IMPROVE WITH EX'S GIVEN. UPON EXAM TODAY: THIS PATIENT AMBULATES INDEP'LY INTO PT TODAY WITHOUT ANY AD'S OR GROSS DEVIATIONS NOTED EXCEPT GENERALLY FLEXED POSTURE. Sensory deficit: ANDREA LE LIGHT TOUCH SENSATION IS GROSSLY INTACT AND SYMMETRICAL. ROM deficit: R KNEE ROM IN SUPINE IS 2-0-114 Degrees WITH C/O MILD ERP FLEX AND EXT. ANDREA CALF TIGHTNESS. Motor deficit: R HIP 4/5, KNEE 4/5, ANKLE 5/5. L HIP 5/5, KNEE 5/5, ANKLE 5/5. Dural Signs: NEGATIVE ANDREA LE'S. Lumbar mvmt loss: flex - MIN ext - JUAN PABLO R SG - JUAN PABLO L SG - MOD PATIENT DENIES PAIN WITH LUMBAR ROM TESTING TODAY. Core strength: FAIR 30 STS = 7 WITH HANDS ON KNEES. TUG TEST TIME: 9.36 SEC INDEP WITHOUT AD OR DEVIATION. Palpation: NO ACUTE TENDERNESS OF LOW BACK OR R LE WITH LIGHT PALPATION TODAY. Goals Goal 1:: PATIENT WILL HAVE NORMALIZE VOIDING FREQUENCEY TO EVERY 2.5 TO 3.5 HOURS WITHOUT DIFFICULTY INITIATING URINE STREAM. Goal 2:: PATIENT WILL DEVELOP HEALTHY FLUID INTAKE HABITS WITH FLUID INTAKE OF ??? BODY WEIGHT IN OUNCES PER DAY AND 2/3 BEING WATER. Goal 3:: PATIENT WILL HAVE DECREASE URINARY LEAKAGE EPISODES TO ONE OR LESS PER WEEK NEW GOAL: PATIENT WILL BE ABLE TO PERFORM 8 STS IN 30 SEC WITHOUT UE ASSIST TO DEMONSTRATE IMPROVED LE FUNCTIONAL STRENGTH. Goal Progress: Progressing Goal 4:: PATIENT WILL SUCCESSFULLY DELAY VOIDING LONG NEEDED WHEN URGENCY OCCURS TO SUCCESSFULLY MAKE IT TO THE BATHROOM. NEW GOAL: PATIENT WILL HAVE NORMALIZED GAIT AND TUG TIME OF 10 SEC OR LESS TO DEMONSTRATED IMPROVED GAIT STABILITY. Goal Progress: Goal Met Goal 5:: PATIENT WILL APPROPRIATELY MANAGE CHANGES IN INTRAABDOMINAL PRESSURE WITH APPROPRIATE PELVIC FLOOR MUSCLE ACTIVATION AND BREATHING TECHNIQUES. NEW GOAL: PATIENT WILL HAVE INCREASED R KNEE ROM TO 5-0-120 DEG TO IMPROVE FUNCTION. Goal Progress: Progressing Goal 6:: PATIENT WILL BE INDEP WITH A HEP/HOME INSTRUCTIONS FOR CONTINUED IMPROVEMENT ONCE FORMAL PHYSICAL THERAPY CONCLUDES. NEW GOAL: DECREASE R LE PAIN BY AT LEAST 50% TO EASE ADL'S. Goal Progress: Progressing Plan Plan: D/C TO INDEP EX PER PATIENT REQUEST. D/C Information d/c sentence: If there are questions or concerns regarding this patient's physical therapy, please feel free to call me at [phone]. Thank you for the referral of this patient. Sincerely, Maribell Infante, PT, Cert MDT Balance/Gait/Functional tests Balance/Special Test Scores Lower Extremity Functional Score: 58 Improvement % Improvement: 50 02/23/25 2564 CC: Dr. Yuliet Brown MD; Dr. Janine Choudhary DO (more content not included)... Normal [facility] Brain/Head without Contrasto n 01-25-2025 Brain/Head without Contrast [facility] Imaging Services [address] [place] [place] [id number] Brain/Head without Contrast MR#: [id number] Acct: [id number] Name: MAEGAN PADGETT Rep #: [id number] : 1960 F 64 From: Pritesh horton MD PCP: Dr. Janine Choudhary DO Status: REG ER Study: Brain/Head without Contrast Date of Exam: 03/16 Exam# [id number] Ordering Dr: Kp Trevino MD PROCEDURE: BRAIN/HEAD WITHOUT CONTRAST 01/25/2025 REASON FOR EXAM: TRAUMA TECHNIQUE: Head CT without intravenous contrast. Coronal and Sagittal reconstruction series were provided. One or more dose reduction techniques were used (e.g., Automated exposure control, adjustment of the mA and/or kV according to patient size, use of iterative reconstruction technique. FINDINGS: * ACUTE: No acute infarct or hemorrhage. No mass effect or herniation. * BRAIN PARENCHYMA: Signal intensities are within normal limits for age. * VENTRICLES/EXTRA-AXIAL SPACES: No hydrocephalus or extra-axial fluid collections. * EXTRACRANIAL STRUCTURES: Visualized osseous structures are normal. Mild right frontal scalp soft tissue swelling with underlying hematoma. CT/Brain/Head without Contrast IMPRESSION: No acute intracranial abnormality. Mild frontal scalp soft tissue swelling with underlying hematoma. Reading Location: [facility] CC: Dr. Kp Trevino MD; Dr. Janine Choudhary DO Procurement Agent: Signed Normal [facility] Emergency Department Summary on 01-25-2025 Emergency Department Summary [facility] Medical Records Department [address] [place] [address] Emergency Department Summary 01/25/25 MR#: [id number] Acct: [id number] Name: MAEGAN PADGETT Rep #: [id number] : 1960 64 From: Kp Trevino MD PCP: Dr. Janine Choudhary, DO Status:REG ER Location: ED HPI HPI - Fall History of Present Illness Chief Complaint: Fall Narrative Narrative: 64-year-old female past medical history of depression anxiety, hypertension, not on blood thinners presents with her status post fall. She states that approximately 30 minutes ago she was in her garage, and tripped over a makeshift wooden structure. She hit her head on a table there. She denies any neck pain, no loss of consciousness but has mild headache. She sustained an injury to her forehead. She denies any paresthesias of her arms or legs, no other symptoms. No nausea or vomiting. [facility] Medical History Chronic neck and back pain Limb weakness Peripheral neuropathy Hiatal hernia with GERD Internal hemorrhoid, bleeding OAB (overactive bladder) Chronic constipation Vitamin deficiency Frequent UTI IBS (irritable bowel syndrome) Hypertension Home Medications ???Medication ???Instructions ???Recorded ???Last Taken ???Type esomeprazole magnesium 40 mg 40 mg PO DAILY 09/12/20 Unknown Hi story capsule,delayed release loratadine-pseudoephedrine ER 10 1 tab PO DAILY 09/12/20 Unknown Hi story mg-240 mg tablet,extended [id number] (Claritin-D 24 Hour) mecobalamin (vitamin B12) 10,000 1,000 mcg IM QMONTH Fatigue Unknown History mcg solution for injection polyethylene glycol 3350 17 17 g PO DAILY PRN constipation Unknown History gram/dose oral powder (Miralax) spironolactone 25 mg tablet 25 mg PO DAILY 09/12/20 Unknown Hi story cephalexin 250 mg capsule 250 mg PO 06/19/21 Unknown History lactobacillus combo no.6 4 billion cell PO 06/19/21 Unknown History cell tablet citalopram 40 mg tablet 40 mg PO DAILY 03/31/24 Unknown Hi story d-mannose 500 mg capsule 1,300 mg PO QDAY 03/31/24 Unknown History oxybutynin chloride 10 mg 10 mg PO DAILY 03/31/24 Unknown Hi story tablet,extended release 24 hr Allergy/AdvReac Type Severity Reaction Status Date / Time No Known Allergies Allergy Verified 01/25/25 16:04 Family History Mother Anemia Anesthesia complication Asthma Arthritis History of blood transfusion Depression Diabetes CVA (cerebral vascular accident) Sister Anesthesia complication Arthritis Mast cell activation syndrome Diabetes Severe allergy Grandmother Depression Myocardial infarction Heart disease Brother Diabetes Father Colon cancer Surgical History History of carpal tunnel release History of tonsillectomy History of bowel blockage History of umbilical hernia repair Social History Smoking Status: Never smoker Electronic Cigarette Use: not used second hand exposure: No alcohol intake: current alcohol intake frequency: holidays/special occasions only substance use type: does not use ROS ROS ED ROS Narrative Review of systems positive for hematoma on forehead, positive headache. No reported loss of consciousness, no neck pain. No paresthesias. Denies other injury. No nausea or vomiting. EXAM Physical Exam Narrative Exam Narrative: GCS 15. ABCs are intact. Inspection of the forehead does reveal a moderately sized/egg sized hematoma without crepitance. Neck is soft and supple without vertebral point tenderness or bony step-off. No pain with full range of motion of neck. PERRL, EOMI. Cardiovascular examination reveals a regular rate and rhythm. Lungs are clear to auscultation bilaterally. The abdomen is soft, nontender, without guarding or rebound. Positive bowel sounds. Neurological examination is nonfocal, nonlateralizing. Able to raise arms above head without difficulty. Const Vital Signs: 01/25/25 16:04 01/25/25 16:32 Temperature 97.6 F L Temperature Source Oral Pulse Rate 86 Respiratory Rate 18 Respiratory Effort Normal Non-Labored Respiratory Depth Normal Respiratory Pattern Normal Blood Pressure 153/87 H Blood Pressure Mean 109 Pulse Ox 98 Oxygen Delivery Method Room Air Room Air MDM MDM MDM Narrative Medical decision making narrative: Differential diagnosis includes but not limited to hematoma forehead versus skull fracture versus intracranial hemorrhage versus closed head injury. I do not feel that she requires any imaging of the neck because she has no pain. Although there was no loss of consciousness and (more content not included)... Normal [facility] Re-Evaluation - PT (1)on Re-Evaluation - PT (1) [facility] [address] [place] [address] / REEVALUATION / MEDICARE RECERTIFICATION PHYSICAL THERAPY MR#: [id number] Acct: [id number] Name: MAEGAN PADGETT Rep #: [id number] : 1960 64 From: Maribell Infante PT, Cert. MDT Referring Dr.: Dr. Yuliet Brown MD Status:REG RCR Insurance: [facility] [employer] Re-Evaluation Intro: Dr. Yuliet Brown MD, and Dr. Janine Choudhary, It has been my pleasure to treat MAEGAN PADGETT over the last 6 visits for HESITANCY OF VOIDING, HIGH TENSION PELVIC FLOOR DYSFUNCTION. She was evaluated today for R KNEE PAIN with an order from Dr. Choudhary. Please see the progress note below for an update on the physical therapy plan of care! Subjective Subjective: PATIENT PRESENTS TO PT TODAY REQUESTING TO JUST HAVE HER R KNEE EXAMINED. SHE REPORTS DR. CHOUDHARY THINKS SHE TORE SOMETHING IN HER KNEE WHEN SHE SLIPPED AND FELL 11/27/24 ON ICE WHILE ON VACATION TWICE IN ONE HOUR AT THE [facility]. SHE STATES HE WANTS HER TO TRY PHYSICAL THERAPY FIRST AND SHE IS HOPING SHE DOESN'T NEED SURGERY. SHE REPORTS THE PAIN GOES ALL THE WAY FROM HER R LOW BACK DOWN TO HER R ANKLE. SHE ALSO HAS C/O INTERMITTENT NUMBNESS AND TINGLING DOWN HER LEG. SHE STATES SHE ALSO HAS NEUROPATHY. THE PAIN IS RANGING 4-8/10. IT GETS WORSE WITH DAILY CHORES, WALKING A LOT AND BEING UP ON IT IN GENERAL. IT IS BETTER IN THE MORNING AND WORSE THE DAY PROGRESSES. DECREASES PAIN WITH ALEVE AND REST. PATIENT ALSO REPORTS DR. CHOUDHARY TOLD HER SHE HAS A BAKERS CYST. R KNEE X-RAY: A LITTLE BIT OF ARTHRITIS BUT NO FX PER PATIENT REPORT. Objective Objective/Function: THIS PATIENT AMBULATES INDEP'LY INTO PT TODAY WITHOUT ANY AD'S WITH INCREASED TRUNK FLEXION, DECREASED CADANCE AND DECREASED WT BEARING TIME R LE COMPARED TO L. SHE IS UNABLE TO TRANSFER SIT TO STAND WITHOUT UE ASSIST. Sensory deficit: ANDREA LE LIGHT TOUCH SENSATION IS GROSSLY INTACT AND SYMMETRICAL WITH GROSS TENDERNESS THROUGH OUT ANDREA LE'S. ROM deficit: R KNEE ROM IN SUPINE IS 5-0-95 Degrees WITH C/O ERP FLEX AND EXT. L KNEE ROM IS 5-0-120 Degrees WITH MILD C/O PAIN COMPARED TO R. ANDREA CALF TIGHTNESS. Motor deficit: R HIP 4-/5, KNEE 3-/5, ANKLE 4/5. L HIP 4/5, KNEE 4-/5, ANKLE 5/5. Dural Signs: + R LE Lumbar mvmt loss: flex - MIN - INCREASES R LOW BACK AND R LE ext - JUAN PABLO - INCREASES LOW BACK R>L AND R LE PAIN - W R SG - JUAN PABLO - INCREASES R LB AND R LE L SG - MOD - INCREASES R LB. Core strength: POOR Palpation: TENDERNESS AND MILD SWELLING R LUMBAR REGION. PATIENT ALSO HAS C/O R BUTTOCK AND R GREATER TROCH REGION TENDERNESS ALONG WITH GENERALIZED TENDERNESS/HPERSENSATIVITY OF ANDREA LE'S. Plan Plan Plan: AQUATIC THERAPY 2X'S A WEEK X 4-6 WKS FOR: LOW BACK AND ANDREA LE (ESPECIALLY R KNEE) PAIN RELIEF. CORE STRENGTHENING WITH NEUTRAL SPINE ONLY. ANDREA LE ROM, STRETCHING AND STRENGTHENING WITH FOCUS ON RESTORING R KNEE ROM FIRST. HOLD PELVIC FLOOR THERAPY AT PATIENTS REQUEST. Goals Goals Goal 1:: PATIENT WILL HAVE NORMALIZE VOIDING FREQUENCEY TO EVERY 2.5 TO 3.5 HOURS WITHOUT DIFFICULTY INITIATING URINE STREAM. Goal Time Frame: 4-6 Weeks Goal 2:: PATIENT WILL DEVELOP HEALTHY FLUID INTAKE HABITS WITH FLUID INTAKE OF ??? BODY WEIGHT IN OUNCES PER DAY AND 2/3 BEING WATER. Goal Time Frame: 2-4 Weeks Goal 3:: PATIENT WILL HAVE DECREASE URINARY LEAKAGE EPISODES TO ONE OR LESS PER WEEK NEW GOAL: PATIENT WILL BE ABLE TO PERFORM 8 STS IN 30 SEC WITHOUT UE ASSIST TO DEMONSTRATE IMPROVED LE FUNCTIONAL STRENGTH. Goal Time Frame: 4-6 Weeks Goal 4:: PATIENT WILL SUCCESSFULLY DELAY VOIDING LONG NEEDED WHEN URGENCY OCCURS TO SUCCESSFULLY MAKE IT TO THE BATHROOM. NEW GOAL: PATIENT WILL HAVE NORMALIZED GAIT AND TUG TIME OF 10 SEC OR LESS TO DEMONSTRATED IMPROVED GAIT STABILITY. Goal Time Frame: 4-6 Weeks Goal 5:: PATIENT WILL APPROPRIATELY MANAGE CHANGES IN INTRAABDOMINAL PRESSURE WITH APPROPRIATE PELVIC FLOOR MUSCLE ACTIVATION AND BREATHING TECHNIQUES. NEW GOAL: PATIENT WILL HAVE INCREASED R KNEE ROM TO 5-0-120 DEG TO IMPROVE FUNCTION. Goal Time Frame: 4-6 Weeks Goal 6:: PATIENT WILL BE INDEP WITH A HEP/HOME INSTRUCTIONS FOR CONTINUED IMPROVEMENT ONCE FORMAL PHYSICAL THERAPY CONCLUDES. NEW GOAL: DECREASE R LE PAIN BY AT LEAST 50% TO EASE ADL'S. Goal Time Frame: 4-6 Weeks Anticipated Interventions Anticipated Interventions Patient/Client Instruction: Educate patient on: Condition, Plan of Care and Risk Factors For the Purpose of:: To improve self management Therapeutic Exercise to Include: Strength training, Body mechanics, Postural training, Flexibilty training, Neuromotor development and Relaxation training For the Purpose of:: To improve muscle performance and motor function, To increase tolerance to activity/condition/position, To improve ability of physical (more content not included)... Normal [facility] Knee 4 or More Viewson 12-31 Knee 4 or More Views [facility] Imaging Services [address] [address] Knee 4 or More Views MR#: [id number] Acct: [id number] Name: MAEGAN PADGETT MARIE Rep #: [id number] : 1960 F 64 From: Janine Gallegos MD PCP: Dr. Janine Choudhary DO Status: REG CLI Study: Knee 4 or More Views Date of Exam: 12/31/24 Exam# [id number] Ordering Dr: Janine Choudhary DO EXAM: XR Right Knee Complete, 4 or More Views CLINICAL INDICATION: PAIN TECHNIQUE: Four or more views of the right knee. COMPARISON: No relevant prior studies available. FINDINGS: BONES/JOINTS: Mild tricompartmental degenerative changes of the knee joint. No acute fracture. No dislocation. SOFT TISSUES: Unremarkable. RAD/Knee 4 or More Views IMPRESSION: Degenerative changes as above. Reading [facility] CC: Dr. Janine Choudhary DO Procurement Agent: Signed Normal [facility] Inital Evaluation (1) - PTon 10-25-2024 Inital Evaluation (1) - PT [facility] Physical Therapy Health[address] [place] [address] / REHABILITATION SERVICES INITIAL EVALUATION MR#: [id number] Acct: [id number] Name: MAEGAN PADGETT Rep #: [id number] : 1960 63 From: Maribell Infante PT, Cert. MDT Referring Dr.: Dr. Yuliet Brown MD Status: RE G RCR Insurance: [facility] PACKAGE PLAN [facility] Patient's Visit Information Visit Information Visit Information: MAEGAN PADGETT is a 63 year old F referred to Physical Therapy by Dr. Yuliet Brown MD with a diagnosis of HESITANCY OF VOIDING, HIGH TENSION PELVIC FLOOR DYSFUNCTION. Date of Evaluation: 10/25/24 Physical Therapist: Maribell Infante, PT, Cert MDT Visit Plan Frequency: 1x/Week Duration: 2-4 Months Plan: ISSUE BLADDER DIARY. FURTHER ASSESSMENT OF PELVIC FLOOR. PF THERAPY FOR LENGTHENING/RELAXATION TRAINING. URINARY URGE AND FREQUENCY EDUCATION. HEALTHY BLADDER, BACK AND POSTURE HABIT EDUCATION. CORE STRENGTHENING. ANDREA LE ROM, STRETCHING AND STRENGTHENING. TRAINING IN ABDOMINAL CAVITY PRESSURE MGMT WITH ADL'S. HEP INST. Subjective Subjective: Work/Leisure: RETIRED. Disability: NO Present symptoms: PATIENT REPORTS INTERMITTENT DIFFICULTY URINATING. PATIENT ALSO REPORTS SHE SOMETIMES HAS URINARY LEAKING WHEN SHE GETS URGE AND CAN'T MAKE IT TO THE BATHROOM IN TIME. SHE SOMETIMES WEARS PROTECTION RANGING FROM A PANY LINER TO DEPENDS AND SOMETIMES DOESN'T WEAR ANY PROTECTION. SHE REPORTS SHE TYPICALLY DOES NOT HAVE LEAKING WHEN SHE COUGHS AND SNEEZES. Present since: ABOUT 5 YEARS. Pain Scale: N/A Is it getting better, worse or staying the same: STAYING THE SAME Commenced as a result of: NO APPARENT REASON Worse: BEARING DOWN TO HAVE A BOWEL MVMT Better: PELVIC FLOOR THERAPY SEEMED TO START TO HELP 2-3 YEARS AGO - STATES SHE WENT ABOUT 5 TIMES AND THEN HAD TO STOP DUE TO SOME FAMILY THINGS GOING ON. Previous history/Previous treatment: SURGERY BOWEL BLOCKAGE 2016 THEN UMBILICAL SX 2017 Treatment this episode: WAS TAKING BLADDER MEDICINE BUT OFF OF IT NOW. Gait: INDEP WITHOUT AD. Fluid Intake: 4 to 5 16 oz diet cokes a day and sometimes no water. Doesn't really drink anything else. How long can you delay the need to urinate: ZERO TO 15 MIN. Prolapse (Falling out feeling): AT TIMES WHEN DIFFICULTY HAVING BM. NO SURGERY RECOMMENDED AT THIS TIME. Frequency of Urination: UNSURE. HAS NOT DONE BLADDER DIARY. Ability to stop urine flow: ABLE TO PARTIALLY STOP THE FLOW Ability to initiate urine stream: SOME HAS DIFFICULTY Dyspareunia: SOMETIMES Bowel Incontinence: SOMETIMES - REPORTS HAVING RECENT COLONOSCOPY AND BEING PUT ON MEDICATION. Unexplained weight loss: NO PMH/Recent major surgery: Chronic neck and back pain Limb weakness Peripheral neuropathy Hiatal hernia with GERD Internal hemorrhoid, bleeding OAB (overactive bladder) Chronic constipation Vitamin deficiency Frequent UTI IBS (irritable bowel syndrome) Hypertension History of carpal tunnel release History of tonsillectomy [History of bowel blockage] History of umbilical hernia repair Objective Objective: Sitting/Standing Posture: INCREASED KYPHOSIS. NO RELEVANT LATERAL LUMBAR SHIFT. L ILIAC CREST HIGHER THAN R. SCOLIOTIC APPEARING SPINE. Other Observations: INDEP GAIT AND TRANSFERS. Sensory deficit: ANDREA LE LIGHT TOUCH SENSATION GROSSLY INTACT AND SYMMETRICAL ROM deficit: ANDREA LE HIP ADDUCTOR, HIP FLEXOR, HS, ANDREA HIP IR/ER AND CALF TIGHTNESS Motor deficit: ANDREA HIPS 4/5, KNEES 5/5, ANKLES 5/5 Dural Signs: NEGATIVE ANDREA LE'S. Lumbar mvmt loss: flex - MOD. ext - JUAN PABLO R SG - MOD L SG - MOD PATIENT DENIES PAIN WITH LUMBAR ROM TESTING ALL PLANES. Core strength: POOR Palpation: TENDERNESS WITH LIGHT PALPATION OF LOW BACK AND ANDREA LATERAL HIP REGIONS. OTHER: PATIENT REFUSED EXAM OF PELVIC FLOOR TODAY BUT AGREEABLE NEXT VISIT. NO SPECIFIC EXPLANATION GIVEN BUT STATES SHE IS FAMILAR WITH TESTING FROM LAST EXPERIENCE WITH PT. FUNCTIONAL SCREEN: Incontinence Impact Questionnaire Score: 17 Urogenital Distress Inventory Score: 16 Goals Goal 1:: PATIENT WILL HAVE NORMALIZE VOIDING FREQUENCEY TO EVERY 2.5 TO 3.5 HOURS WITHOUT DIFFICULTY INITIATING URINE STREAM. Goal Time Frame: 4-6 Weeks Goal 2:: PATIENT WILL DEVELOP HEALTHY FLUID INTAKE HABITS WITH FLUID INTAKE OF ??? BODY WEIGHT IN OUNCES PER DAY AND 2/3 BEING WATER. Goal Time Frame: 2-4 Weeks Goal 3:: PATIENT WILL HAVE DECREASE URINARY LEAKAGE EPISODES TO ONE OR LESS PER WEEK Goal Time Frame: 4-6 Weeks Goal 4:: PATIENT WILL SUCCESSFULLY DELAY VOIDING LONG NEEDED WHEN URGENCY OCCURS TO SUCCESSFULLY MAKE IT TO THE BATHROOM. Goal Time Frame: 6-8 Weeks Goal 5:: PATIENT WILL APPROPRIATELY MANAGE CHANGES IN INTRAABDOMINAL PRESSURE WITH APPROPRIATE PELVIC FLOOR MUSCLE ACTIVATION AND BREATHING TECHNIQUES. Goal 6:: PATIENT WILL BE INDEP WI (more content not included)... Normal [facility] SCRN MAMM (CAD)W/WALTER BILATo n 04-14-2024 SCRN MAMM (CAD)W/WALTER BILAT [facility] Imaging Services [address] [place] [address] SCRN MAMM (CAD)W/WALTER BILAT MR#: [id number] Acct: [id number] Name: MAEGAN PADGETT Rep #: [id number] : 1960 F 63 From: Rene mosley MD PCP: Dr. Janine Choudhary DO Status: REG CL Study: SCRN MAMM (CAD)W/WALTER BILAT Date of Exam: 03/23 01/13 Exam# [id number] Ordering Dr: Janine Choudhary DO [id number] MAMMOGRAPHY - BILATERAL SCREENING REASON FOR EXAM: Female, 63 years old. Routine annual screening examination. PERTINENT HISTORY: Non-contributory. TECHNIQUE: Digital bilateral breast walter (3D mammographic acquisition) in the CC and MLO projections. 2-D mediolateral oblique (MLO) and craniocaudad (CC) views of both breasts were obtained. CAD: Full Field Digital Mammography with Computer Added Detection was performed. COMPARISON: Comparison is made with prior study March 31, 2023 and March 28, 2022. ____ FINDINGS: Breast Composition: The breasts are almost entirely fatty. There are no dominant masses or suspicious calcifications. No other significant abnormalities are identified. There has been no significant change since the prior study. ____ BI/SCRN MAMM (CAD)W/WALTER BILAT IMPRESSION: Stable bilateral screening mammogram. Yearly follow-up mammogram recommended. (A) ____ ASSESSMENT CATEGORY: BIRADS Category 1: Negative. A letter regarding these results will be sent to the patient by the facility within 30 days. Approximately 10% of breast cancers are not detected by mammography. A normal mammogram should not delay biopsy of a clinically suspicious abnormality. [id number] Electronically Signed: Rene Kumar MD at 13:23 EDT Reading Location ID and State: [facility] / [place] , Service support , CC: Dr. Janine Choudhary, DO Procurement Agent: Signed Normal [facility] MR/BMS.BVSon 03-31-2024 MR/BMS.BVS [facility] Vascular Surgery [address] [place], [place] [address] OFFICE VISIT Date of Service: 03/31/24 MR#: [id number] Acct: [id number] Name: MAEGAN PADGETT Rep #: [id number] : 1960 Provider: KAREN Schneider Age/Sex: 63/F Location: [facility].BV Status: Signed Intake Vital Signs 02/09/24 15:07 03/01/24 13:25 03/31/24 09:07 Height 5 ft 8.5 in 5 ft 8.5 in Weight: 163 lb BP 134/85 H Blood Pressure Location Lt brachial Position Sitting Respiration 16 Pulse 98 Temp 98.4 F Pulse Oximetry (%) 97 Oxygen Delivery Method room air Intake Visit Reasons: CONSULT-VARICOSE VEINS Chief Complaint: varicose veins Is patient in pain?: No Allergies No Known Allergies Allergy (Verified 03/31/24 09:11) Medications ???Medication ???Instructions ???Recorded ???Confirmed ???Type esomeprazole magnesium 40 mg 40 mg PO DAILY 09/12/20 03/31/24 History capsule,delayed release loratadine-pseudoephedrine ER 10 1 tab PO DAILY 09/12/20 03/31/24 History mg-240 mg tablet,extended [id number] (Claritin-D 24 Hour) mecobalamin (vitamin B12) 10,000 1,000 mcg IM QMONTH Fatigue 09/12/20 03/31/24 History mcg solution for injection polyethylene glycol 3350 17 17 g PO DAILY PRN constipation 09/12/20 03/31/24 History gram/dose oral powder (Miralax) spironolactone 25 mg tablet 25 mg PO DAILY 09/12/20 03/31/24 History cephalexin 250 mg capsule 250 mg PO 06/19/21 03/31/24 History lactobacillus combo no.6 4 billion cell PO 06/19/21 03/31/24 History cell tablet citalopram 40 mg tablet 40 mg PO DAILY 03/31/24 03/31/24 History d-mannose 500 mg capsule 1,300 mg PO QDAY 03/31/24 03/31/24 History oxybutynin chloride 10 mg 10 mg PO DAILY 03/31/24 03/31/24 History tablet,extended release 24 hr Have you fallen in the past year?: Yes PFSH Medical History Chronic neck and back pain Limb weakness Peripheral neuropathy Hiatal hernia with GERD Internal hemorrhoid, bleeding OAB (overactive bladder) Chronic constipation Vitamin deficiency Frequent UTI IBS (irritable bowel syndrome) Hypertension Surgical History History of carpal tunnel release History of tonsillectomy History of bowel blockage History of umbilical hernia repair Family History Mother Anemia Anesthesia complication Asthma Arthritis History of blood transfusion Depression Diabetes CVA (cerebral vascular accident) Sister Anesthesia complication Arthritis Mast cell activation syndrome Diabetes Severe allergy Grandmother Depression Myocardial infarction Heart disease Brother Diabetes Father Colon cancer Social History (Updated 03/31/24 @ 09:07 by Akosua Watson) Smoking Status: Never smoker Electronic Cigarette Use: not used second hand exposure: No alcohol intake: current alcohol intake frequency: holidays/special occasions only substance use type: does not use HPI HPI HPI: MAEGAN PADGETT, is a 63 F who presents to the office today for evaluation of symptomatic varicose veins as referred by her PCP Dr. Choudhary. She has had these bilateral lower extremity varicose veins for decades and they have progressively worsened with time. She has a cluster of varicosities on her L medial thigh which are the most bothersome. These varicosities intermittently burn and itch. She does also notice that with prolonged sitting or standing she will ache around these veins and throughout her lower legs. She does not have any venous ulcerations or chronic skin changes. She denies any episodes of phlebitis or any known VTE. She denies any prior venous procedures such as ablation or sclerotherapy. Her medical history is significant for chronic bilateral lower extremity neuropathy, chronic IBS-C with history of bowel surgery. No history of abdominal/pelvic radiation or spine injury/surgery. She does not think there is a family history of varicose veins. ROS General General: Yes fatigue; No weight change, appetite, colon cancer, breast cancer or weakness HEENT HEENT: No difficulty swallowing, eye injury, eye surgery, swollen glands or hoarseness Endo Endocrine: No thyroid disease, diabetes mellitus, thyroid cancer, Hair loss, heat intolerance or cold intolerance Skin Skin: No rash or changing moles Musc Musculoskeletal: Yes arthritis; No back problems, rheumatoid arthritis, gout or joint pain Cardio Cardiovascular: Yes high blood pressure; No murmur, pacemaker, heart disease, atrial fibrillation, heart attack, heart stent, palpitations, shortness of breat with exertion or chest pain Psych Psychiatric: Yes anxiety; No depression or hearing voices Res (more content not included)... Normal [facility] Basophil percentageOrdered B y: Cassie Woods on 10-24-2023 Bilirubin [Mass/Vol] 0.40 mg/dL 0.20-1.00 [facility] Comment on above: For patients on eltr ombopag therapy, use of Dimension [place] TBIL is not recommended. Chloride [Moles/Vol] 101 mmol/L 98-107 [facility] Glucose [Mass/Vol] 106 mg/dL 74-106 [facility] Comment on above: Fasting Glucose resu lt from 100 to 125 mg/dL suggests IMPAIRED HOMEOSTASIS per A.D.A. criteria. Potassium [Moles/Vol] 3.9 mmol/L 3.5-5.1 [facility] Protein [Mass/Vol] 7.5 g/dL 6.4-8.2 [facility] Sodium [Moles/Vol] 134 mmol/L 136-145 [facility] Laboratory - Chemistry and C hemistry - challengeOrdered By: Cassie Woods on 10-24-2023 Albumin/Globulin [Mass ratio] 1.2 {ratio} 0.9-2.4 [facility] ALP [Catalytic activity/Vol] 76 U/L 45-117 [facility] ALT [Catalytic activity/Vol] 19 U/L 13-56 [facility] CO2 [Moles/Vol] 31.0 mmol/L 21.0-32.0 [facility] Globulin (S) [Mass/Vol] 3.4 g/dL 2.2-4.2 [facility] Magnesium [Mass/Vol] 2.2 mg/dL 1.6-2.6 [facility] Urea nitrogen/Creatinine [Mass ratio] 13.3 mg/mg 10-20 [facility] No Panel InformationOrdered By: Cassie Woods on 10-24-2023 Estimated GFR (MDRD) Amer 74 mL/min >60 [facility] Comment on above: GFR Calc Estimated GFR (MDRD) Non-Af Amer 61 mL/min >60 [facility] Comment on above: Non- GFR Calc Serum or plasma calcium bishnu urement (mass/volume)Ordered By: Cassie Woods on 10-24-2023 Calcium [Mass/Vol] 9.4 mg/dL 8.5-10.1 [facility] Serum or plasma creatinine m easurement (mass/volume)Ordered By: Cassie Woods on 10-24-2023 Creatinine [Mass/Vol] 0.98 mg/dL 0.55-1.02 [facility] Comment on above: The validity of the calculated GFR & GFRAA in patients over 70 years has not been determined. Clinical correlation is essential. Serum or plasma urea nitroge n measurement (mass/volume)Ordered By: Cassie Woods on 10-24-2023 Urea nitrogen [Mass/Vol] 13 mg/dL 7-18 [facility] Thin prep Papanicolaou smear with manual screeningOrdered By: Cassie Woods on 10-24-2023 Thin prep Papanicolaou smear with manual screening 4.1 g/dL 3.2-5.0 [facility] Thin prep Papanicolaou smear with manual screening 15 U/L 15-37 [facility] Thin prep Papanicolaou smear with manual screening 2 5-15 [facility] Absolute lymphocyte countOrd ered By: Cassie Woods on 03-10-2023 Lymphocytes Auto (Unsp spec) [#/Vol] 2.98 10*3/uL 0.83-4.51 [facility] Basophil percentageOrdered B y: Cassie Woods on 03-10-2023 Basophils/100 WBC (Bld) 0.7 % 0-1 [facility] Bilirubin [Mass/Vol] 0.20 mg/dL 0.20-1.00 [facility] Comment on above: For patients on eltr ombopag therapy, use of Dimension [place] TBIL is not recommended. Chloride [Moles/Vol] 101 mmol/L 98-107 [facility] Cholesterol [Mass/Vol] 195 mg/dL <200 [facility] Comment on above: <200 mg/dL Desirable 200-240 mg/dL Borderline >240 mg/dL High Risk Eosinophils/100 WBC (Bld) 4.7 % 0-5 [facility] Glucose [Mass/Vol] 94 mg/dL 74-106 [facility] Neutrophils (Bld) [#/Vol] 4.4 10*3/uL 2.0-7.7 [facility] Neutrophils/100 WBC (Bld) 51.8 % 47-70 [facility] Potassium [Moles/Vol] 4.1 mmol/L 3.5-5.1 [facility] Protein [Mass/Vol] 7.9 g/dL 6.4-8.2 [facility] Sodium [Moles/Vol] 137 mmol/L 136-145 [facility] Triglyceride [Mass/Vol] 92 mg/dL <199 [facility] Comment on above: The drugs N-Acetylcy steine and Metamizole may falsely depress this assay.Serum Triglycerides Reference Interval Normal <150 mg/dL Borderline high 150 - 199 mg/dL High 200 - 499 mg/dL Very High > or = 500 mg/dL WBC (Bld) [#/Vol] 8.6 10*3/uL 4.4-11.0 [facility] Blood erythrocytes count (nu mber/volume)Ordered By: Cassie Woods on 03-10-2023 RBC (Bld) [#/Vol] 4.72 10*6/uL 4.2-5.4 [facility] Blood hemoglobin measurement (mass/volume)Ordered By: Cassie Woods on 03-10-2023 Hemoglobin (Bld) [Mass/Vol] 14.1 g/dL 12.0-15.0 [facility] Blood lymphocytes/100 leukoc ytesOrdered By: Cassiesay Woods on 03-10-2023 Lymphocytes/100 WBC (Bld) 34.9 % 19-41 [facility] Blood monocytes/100 leukocyt esOrdered By: [place] Chuck on 03-10-2023 Monocytes/100 WBC (Bld) 7.7 % 0-10 [facility] Blood platelet mean volumeOr dered By: Cassiesay Woods on 03-10-2023 Platelet mean volume (Bld) [Entitic vol] 11.1 fL 6.2-12.0 [facility] Determination of erythrocyte mean corpuscular volume (MCV)Ordered By: Allendale Chuck on 03-10-2023 MCV (RBC) [Entitic vol] 91.5 fL 81-99 [facility] Hematocrit Auto (Bld) [Volum e fraction]Ordered By: Allendale Chuck on 03-10-2023 Hematocrit (Bld) [Volume fraction] 43.2 % 37-47 [facility] Laboratory - Chemistry and C hemistry - challengeOrdered By: Randolph Healthgar on 03-10-2023 ALP [Catalytic activity/Vol] 99 U/L 45-117 [facility] ALT [Catalytic activity/Vol] 16 U/L 13-56 [facility] CO2 [Moles/Vol] 29.0 mmol/L 21.0-32.0 [facility] Cobalamin (Vitamin B12) [Mass/Vol] 536 pg/mL 211-911 [facility] Free T4 [Mass/Vol] 1.08 ng/dL 0.76-1.46 [facility] Globulin (S) [Mass/Vol] 4.0 g/dL 2.2-4.2 [facility] Urea nitrogen/Creatinine [Mass ratio] 16.2 mg/mg 10-20 [facility] Laboratory - Hematology and Cell countsOrdered By: Allendale Chuck on 03-10-2023 Erythrocyte distribution width (RBC) [Entitic vol] 42.4 fL 35.1-43.9 [facility] Erythrocyte distribution width (RBC) [Ratio] 12.7 % 11.6-14.6 [facility] Immature granulocytes/100 WBC (Bld) 0.200 % 0.0-0.9 [facility] Comment on above: IG% - Immature Granu locytes (promyelocytes, myelocytes and metamyelocytes) > 1% indicates that a LEFT SHIFT is Present. MCH (RBC) [Entitic mass] 29.9 pg 27.0-32.0 [facility] Nucleated RBC/100 WBC (Bld) [Ratio] 0 % 0-5 [facility] MCHC Auto (RBC) [Mass/Vol]Or dered By: Cassie Woods on 03-10-2023 MCHC (RBC) [Mass/Vol] 32.6 g/dL 32-36 [facility] No Panel InformationOrdered By: Cassie Woods on 03-10-2023 Estimated GFR (MDRD) Amer 69 mL/min >60 [facility] Comment on above: GFR Calc Estimated GFR (MDRD) Non-Af Amer 57 mL/min >60 [facility] Comment on above: Non- GFR Calc Thyroid Stimulating Hormone (TSH) 1.77 uIU/mL 0.358-3.74 [facility] Vitamin D 25-Hydroxy 52.8 ng/mL [facility] Comment on above: Vitamin D 25(OH) Sta tus Range Deficiency <20 ng/mL (50nmol/L) Insufficiency 20 - 30 ng/mL (50 - 75 nmol/L) Sufficiency 30 - 100 ng/mL (75 - 250 nmol/L) Toxicity >100 ng/mL (>250 nmol/L) Platelets bldOrdered By: [place] Woods on 03-10-2023 Platelets (Bld) [#/Vol] 277 10*3/uL 150-450 [facility] Serum or plasma albumin bishnu urement (mass/volume)Ordered By: Cassie Woods on 03-10-2023 Albumin [Mass/Vol] 3.9 g/dL 3.2-5.0 [facility] Serum or plasma albumin/glob ulin mass ratioOrdered By: Cassie Woods on 03-10-2023 Albumin/Globulin [Mass ratio] 1.0 {ratio} 0.9-2.4 [facility] Serum or plasma calcium bishnu urement (mass/volume)Ordered By: Cassie Woods on 03-10-2023 Calcium [Mass/Vol] 9.9 mg/dL 8.5-10.1 [facility] Serum or plasma cholesterol in HDL measurement (mass/volume)Ordered By: Cassie Woods on 03-10-2023 Cholesterol in HDL [Mass/Vol] 52 mg/dL >40 [facility] Comment on above: The drugs N-Acetylcy steine and Metamizole may falsely depress this assay. Reference Range HDL <40 mg/dL Low HDL Cholesterol HDL >or= 60 mg/dL High HDL Cholesterol Serum or plasma cholesterol in VLDL measurement (mass/volume)Ordered By: Cassie Woods on 03-10-2023 Cholesterol in VLDL [Mass/Vol] 18 mg/dL 5-40 [facility] Serum or plasma creatinine m easurement (mass/volume)Ordered By: Cassie Woods on 03-10-2023 Creatinine [Mass/Vol] 1.05 mg/dL 0.55-1.02 [facility] Comment on above: The validity of the calculated GFR & GFRAA in patients over 70 years has not been determined. Clinical correlation is essential. Serum or plasma low density lipoprotein (LDL) cholesterol measurement (mass/volume)Ordered By: Cassie Woods on 03-10-2023 Cholesterol in LDL [Mass/Vol] 125 mg/dL 0-130 [facility] Serum or plasma urea nitroge n measurement (mass/volume)Ordered By: Cassie Woods on 03-10-2023 Urea nitrogen [Mass/Vol] 17 mg/dL 7-18 [facility] Thin prep Papanicolaou smear with manual screeningOrdered By: Cassie Woods on 03-10-2023 Thin prep Papanicolaou smear with manual screening 19 U/L 15-37 [facility] Thin prep Papanicolaou smear with manual screening 7 5-15 [facility] 24 hour urine alpha 2 globul in/total protein ratio by electrophoresis (mass fraction)on 07-19-2022 Alpha 2 globulin Elph (24H U) [Mass fraction] 17.0 % . [facility] Work Phone: 24 hour urine beta globulin/ total protein ratio by electrophoresis (mass fraction)on 07-19-2022 Beta globulin Elph (24H U) [Mass fraction] 21.7 % . [facility] Work Phone: 24 hour urine gamma globulin /total protein ratio by electrophoresis (mass fraction)on 07-19-2022 Gamma globulin Elph (24H U) [Mass fraction] 20.4 % . [facility] Work Phone: [phone] Absolute lymphocyte counton 07-19-2022 Lymphocytes Auto (Unsp spec) [#/Vol] 2.49 10*3/uL 0.83-4.51 [facility] Work Phone: Basophil percentageon 2021 Basophils/100 WBC (Bld) 0.7 % 0-1 [facility] Work Phone: [phone] Bilirubin [Mass/Vol] 0.50 mg/dL 0.20-1.00 [facility] Work Phone: [phone] Comment on above: For patients on eltr ombopag therapy, use of Dimension [place] TBIL is not recommended. Chloride [Moles/Vol] 104 mmol/L 98-107 [facility] Work Phone: Eosinophils/100 WBC (Bld) 4.3 % 0-5 [facility] Work Phone: [phone] Glucose [Mass/Vol] 158 mg/dL 74-106 [facility] Work Phone: [phone] Comment on above: Fasting Glucose resu lt greater than or equal to 126 mg/dL suggests DIABETES MELLITUS per A.D.A. criteria. Neutrophils (Bld) [#/Vol] 3.8 10*3/uL 2.0-7.7 [facility] Work Phone: Neutrophils/100 WBC (Bld) 53.1 % 47-70 [facility] Work Phone: [phone] Potassium [Moles/Vol] 3.6 mmol/L 3.5-5.1 [facility] Work Phone: Protein [Mass/Vol] 7.5 g/dL 6.4-8.2 [facility] Work Phone: [phone] Sodium [Moles/Vol] 137 mmol/L 136-145 [facility] Work Phone: WBC (Bld) [#/Vol] 7.1 10*3/uL 4.4-11.0 [facility] Work Phone: Blood erythrocytes count (nu mber/volume)on 07-19-2022 RBC (Bld) [#/Vol] 4.69 10*6/uL 4.2-5.4 [facility] Work Phone: Blood hemoglobin measurement (mass/volume)on 07-19-2022 Hemoglobin (Bld) [Mass/Vol] 14.5 g/dL 12.0-15.0 [facility] Work Phone: Blood lymphocytes/100 leukoc yteson 07-19-2022 Lymphocytes/100 WBC (Bld) 34.9 % 19-41 [facility] Work Phone: Blood monocytes/100 leukocyt eson 07-19-2022 Monocytes/100 WBC (Bld) 6.9 % 0-10 [facility] Work Phone: Blood platelet mean volumeon 07-19-2022 Platelet mean volume (Bld) [Entitic vol] 11.0 fL 6.2-12.0 [facility] Work Phone: [phone] Determination of erythrocyte mean corpuscular volume (MCV)on 07-19-2022 MCV (RBC) [Entitic vol] 91.0 fL 81-99 [facility] Work Phone: Hematocrit Auto (Bld) [Volum e fraction]on 07-19-2022 Hematocrit (Bld) [Volume fraction] 42.7 % 37-47 [facility] Work Phone: Laboratory - Chemistry and C hemistry - challengeon 07-19-2022 Albumin [Mass/Vol] 4.0 g/dL 2.9-4.4 [facility] Work Phone: ALP [Catalytic activity/Vol] 86 U/L 45-117 [facility] Work Phone: ALT [Catalytic activity/Vol] 22 U/L 13-56 [facility] Work Phone: CO2 [Moles/Vol] 28.0 mmol/L 21.0-32.0 [facility] Work Phone: Globulin (S) [Mass/Vol] 3.4 g/dL 2.2-4.2 [facility] Work Phone: [phone] Urea nitrogen/Creatinine [Mass ratio] 14.7 mg/mg 10-20 [facility] Work Phone: Laboratory - Hematology and Cell countson 07-19-2022 Erythrocyte distribution width (RBC) [Entitic vol] 43.4 fL 35.1-43.9 [facility] Work Phone: Erythrocyte distribution width (RBC) [Ratio] 13.1 % 11.6-14.6 [facility] Work Phone: [phone] Immature granulocytes/100 WBC (Bld) 0.100 % 0.0-0.9 [facility] Work Phone: Comment on above: IG% - Immature Granu locytes (promyelocytes, myelocytes and metamyelocytes) > 1% indicates that a LEFT SHIFT is Present. MCH (RBC) [Entitic mass] 30.9 pg 27.0-32.0 [facility] Work Phone: Nucleated RBC/100 WBC (Bld) [Ratio] 0 % 0-5 [facility] Work Phone: MCHC Auto (RBC) [Mass/Vol]on 07-19-2022 MCHC (RBC) [Mass/Vol] 34.0 g/dL 32-36 [facility] Work Phone: No Panel Informationon 07-19 Addendum Document Comment . [facility] Work Phone: Comment on above: The SPE pattern appe ars unremarkable. Evidence ofmonoclonal protein is not apparent. Tbzgq-1-Xldiunsav 0.3 g/dL 0.0-0.4 [facility] Work Phone: [phone] Pdnmw-4-Osorgppcl 0.7 g/dL 0.4-1.0 [facility] Work Phone: [phone] Estimated GFR (MDRD) Amer 84 mL/min >60 [facility] Work Phone: Comment on above: GFR Calc Estimated GFR (MDRD) Non-Af Amer 69 mL/min >60 [facility] Work Phone: Comment on above: Non- GFR Calc Gamma Globulins 1.1 g/dL 0.4-1.8 [facility] Work Phone: Serum Immunofixation Comment . [facility] Work Phone: Comment on above: No monoclonality det ected. Urine Immunofixation PEP Note Comment . [facility] Work Phone: Comment on above: Protein electrophore sis scan will follow via computer,mail, or lighting engineering technician delivery. Platelets bldon 07-19-2022 Platelets (Bld) [#/Vol] 280 10*3/uL 150-450 [facility] Work Phone: Protein Fractions Elph [Inte rp]on 07-19-2022 Protein Fractions [Interp] Comment . [facility] Work Phone: Comment on above: Protein electrophore sis scan will follow via computer,mail, or lighting engineering technician delivery. Serum albumin to globulin ra damian by protein electrophoresison 07-19-2022 Albumin/Globulin Elph [Mass ratio] 1.3 0.7-1.7 [facility] Work Phone: Serum hono-3-oxowbczzokpbq m easurement (mass/volume)on 07-19-2022 Vojc-8-Endribhcfiij n [Mass/Vol] 2.0 ug/mL 0.6-2.4 [facility] Work Phone: Comment on above: Siemens Immulite 200 0 Immunochemiluminometric assay (ICMA)Values obtained with different assay methods or kits cannotbe used interchangeably. Results cannot be interpreted asabsolute evidence of the presence or absence of malignantdisease.Performed at: - [address] [id number] Director: Dash Ho MD, Phone: [phone] Serum globulin measurement ( mass/volume)on 07-19-2022 Globulin (S) [Mass/Vol] 3.1 g/dL 2.2-3.9 [facility] Work Phone: Serum or plasma IgA measurem ent (mass/volume)on 07-19-2022 IgA [Mass/Vol] 105 mg/dL 87-352 [facility] Work Phone: Serum or plasma IgG measurem ent (mass/volume)on 07-19-2022 IgG [Mass/Vol] 1105 mg/dL [phone] [facility] Work Phone: Serum or plasma IgM measurem ent (mass/volume)on 07-19-2022 IgM [Mass/Vol] 105 mg/dL 26-217 [facility] Work Phone: Comment on above: Performed at: [facility] [place] [id number] Director: Wai Desouza PhD, Phone: [phone] Serum or plasma albumin bishnu urement (mass/volume)on 07-19-2022 Albumin [Mass/Vol] 4.1 g/dL 3.2-5.0 [facility] Work Phone: Serum or plasma albumin/glob ulin mass ratioon 07-19-2022 Albumin/Globulin [Mass ratio] 1.2 {ratio} 0.9-2.4 [facility] Work Phone: Serum or plasma beta globuli n measurement by electrophoresis (mass/volume)on 07-19-2022 Beta globulin Elph [Mass/Vol] 1.0 g/dL 0.7-1.3 [facility] Work Phone: Serum or plasma calcium bishnu urement (mass/volume)on 07-19-2022 Calcium [Mass/Vol] 8.8 mg/dL 8.5-10.1 [facility] Work Phone: Serum or plasma creatinine m easurement (mass/volume)on 07-19-2022 Creatinine [Mass/Vol] 0.88 mg/dL 0.55-1.02 [facility] Work Phone: Comment on above: The validity of the calculated GFR & GFRAA in patients over 70 years has not been determined. Clinical correlation is essential. Serum or plasma urea nitroge n measurement (mass/volume)on 07-19-2022 Urea nitrogen [Mass/Vol] 13 mg/dL 7-18 [facility] Work Phone: Thin prep Papanicolaou smear with manual screeningon 07-19-2022 Thin prep Papanicolaou smear with manual screening 25 U/L 15-37 [facility] Work Phone: Thin prep Papanicolaou smear with manual screening 5 5-15 [facility] Work Phone: Thin prep Papanicolaou smear with manual screening See comment [facility] Work Phone: Comment on above: Result: Not Observed Total protein bloodon 2021 Protein [Mass/Vol] 7.1 g/dL 6.0-8.5 [facility] Work Phone: Urine albumin/total protein mass ratio by electrophoresison 07-19-2022 Albumin Elph (U) [Mass fraction] 34.5 % . [facility] Work Phone: Urine alpha 1 globulin/total protein ratio by electrophoresis (mass fraction)on 07-19-2022 Alpha 1 globulin Elph (U) [Mass fraction] 6.4 % . [facility] Work Phone: Urine monoclonal protein/tot al protein mass ratio by electrophoresison 07-19-2022 Protein.monoclonal Elph (U) [Mass fraction] See comment [facility] Work Phone: Comment on above: Comment: Not Observe d Urine protein measurement (m ass/volume)on 07-19-2022 Protein (U) [Mass/Vol] 7.0 mg/dL Not Estab. [facility] Work Phone: Cervical or vagninal specime n microscopic examination by cytology stain (reported ason 03-14-2022 Cytology report Cyto stain Doc (Cvx/Vag) Comment . [facility] Work Phone: Comment on above: The Pap smear is a s creening test designed to aid in thedetection of premalignant and malignant conditions of theuterine cervix. It is not a diagnostic procedure andshould not be used as the sole means of detecting cervicalcancer. Both false-positive and false-negative reports dooccur. Detection in cervical specim en of any of human papilloma virus (HPV) 16, 18, 31, 33,on 03-14-2022 HPV 16+18+31+33+35+39+4 5+51+52+56+58+59+66 +68 DNA Probe+sig amp Ql (Cvx) Negative Negative [facility] Work Phone: Comment on above: This nucleic acid am plification test detects fourteen high- risk HPV types (16,18,31,33,35,39,45,51,52,56,58,59,66,68)without differentiation.Performed at: - [facility] [id number] Director: Nhi Trotter MD, Phone: [phone] at: =G - [facility] [address] [id number] Director: Nhi Trotter MD, Phone: [phone] Laboratory - Cytologyon 02-21 Workers Compensation Claims Analyst Cyto stain Nom (Cvx/Vag) [ID] Comment . [facility] Work Phone: Comment on above: Zina Ang, [employer] hnologist (ASCP) Laboratory - Miscellaneous t estson 03-14-2022 Service comment (Unsp spec) [Interp] Comment . [facility] Work Phone: Comment on above: This liquid based Th inPrep(R) pap test was screened withthe use of an image guided system. Service comment (Unsp spec) [Interp] . . [facility] Work Phone: No Panel Informationon 03-14 Pathology report final diagnosis Narrative Comment . [facility] Work Phone: Comment on above: NEGATIVE FOR INTRAEP ITHELIAL LESION OR MALIGNANCY. CNOVon 07-03-2017 CNOV Office Visit (GENSWS) DAYRON MAEGAN ([id number]) 1960 FDate Time Provider Hwvrnufviw39/12/17 9:00 AM BETSY ELLER (PA) During your visit today, we recorded the following information about you:Betsy Eller PA-C 07/03/2017 9:39 AM Aklntd-Q-ejy of abdomen-Miralax daily, dulcolax tablets and plenty of fluids-Stay on light diet until bowels working wellThe following instructions are important for you related to your office visittoday with the [facility].INSTRUCTIONS FOLLOWING YOUR RECENT HERNIA SURGERY You should be returning toyour regular diet, If you have having persistent issues with tolerating yourdiet, please contact our officeIt is not unusual to have incisional pain for the first 1-2 weeks followingsurgery. If this persists beyond 2 weeks, contact the officeYou should leave the Steri-Strips in place until they fall off. You may returnto your regular activities. You may drive if you are no longer taking narcoticpain medication.Climbing stairs is fine. Walking in encouraged. Sitting up from bed may beuncomfortable. Sitting up using your lateral abdominal muscles (sitting upsideways) is usually more comfortable.You should perform no lifting greater than 20lbs for the next 6-7 weeks.Usually 8 weeks total from the date of surgery.It is not unusual to have loose stools following surgery. This is usuallyself limited and related to the antibiotics that were given during yoursurgical procedure. Fiber supplementation and yogurt with active cultures mayhelp you return to regular bowel activity. If you note loose stools persistingfor over 2 weeks, or significant cramping or loose bloody stools, contact theoffice immediately.Contact the office immediately if any of your incisions become increasinglytender, red or have drainage. Again, if you have any difficulties or concerns, contact our officeimmediately.If you note any additional difficulties, questions, or concerns, you shouldcontact our office immediately @ [phone] and ask [facility].Betsy Eller PA-C 07/03/2017 11:01 AM SignedFOLLOW UP VISIT - HERNIANAME: Maegan Ibarra NO.: [id number] OF SERVICE: 07/03/2017DOB: 1960REFERRING PHYSICIAN: Sofi Agrawal is a patient I am following with Dr. Manzanares for a ventral incisionalhernia. Dr. Manzanares performed a laparoscopic incisional ventral hernia repairwith mesh on 06/25/17.The patient currently notes significant constipation. She is still able topass flatus but has passed only a few very small stools since surgery. Hasbeen doing miralax and a senna-based laxative occasionally. Her appetite hasbeen good. She denies fever, chills or abdominal pain. She does note someminimal incisional discomfort. She notes no bulges at the operative siteVITALS: There were no vitals taken for this visit.On examination, the abdomen is mildly distended and appropriately tender topalpation, with no rebound tenderness or guarding. Bowel sounds present. Theincisions are healing well without signs of infection or inflammation. Thereare no signs of recurrent hernia formation.AssessmentIMPRESSION: status post laparoscopic incisional hernia repair with mesh,constipation, ?ileusPLAN:-K-ray of abdomen-Miralax daily, dulcolax tablets and plenty of fluids. Avoid ttcig-qaqydxyifacpva-Fuee on light diet until bowels working well If the patient notes any problems, she should contact me immediately. shemay return to her regular activities as tolerated, with the exception of nolifting greater than 20 pounds for the next 7 weeks.Diagnoses: (K59.00) Constipation, unspecified constipation type (primaryencounter diagnosis)(R10.9) Abdominal pain, unspecified abdominal location(Z98.890, Z87.19) S/P hernia repair KAREN Tam-CReferring Provider: JANINE CHOUDHARY [[id number]]Allergies As of Date: 07/03/2017 Noted Allergy ReactionPENICILLIN 03/06/2017 16 - UnknownTETANUS TOXOID 03/06/2017 7 - SwellingDate Reviewed: 07/03/2017Reviewed by: Garth Mcpherson LPN - Fully AssessedReason for Visit: Post Op [174] Cmt: post op hernia repairPrimary Visit Diagnosis:Constipation, unspecified constipation type [K59.00] Other Visit Diagnoses:Abdominal pain, unspecified abdominal location [R10.9] S/P hernia repair [Z98.890, Z87.19]Order(s):XR ABDOMEN 1V SUPINE [[id number]] Order #: [id number] FUTUREPrescriptions as of 07/03/2017 Sig: MIRALAX ORAL Take by mouth. SENNA LAX ORAL Take by mouth. OXYCODONE-ACETAMINOPHEN 5 MG-* Take 1 tablet by mouth every * ZYRTEC-D ORAL Take 1 tablet by mouth once d* DOCUSATE SODIUM 100 MG TABLET Take 100 mg by mouth twice da* IMIPRAMINE 50 MG TABLET Take 50 mg by mouth daily at * LANSOPRAZOLE 15 MG CAPSULE,DE* Take 15 mg by mouth once jason* SPIRONOLACTONE 25 MG TABLET Take 25 mg by mouth once jason* FESOTERODINE ER 8 MG TABLET,E* Take 8 mg by mouth once daily. LINACLOTIDE 145 MCG CAPSULE Take 145 mcg by mouth once da* PROBIOTIC ORAL Take by mouth.Problem List As Of Date 07/03/2017 Noted Resolved Recurrent umbilical hernia [K42.9] INVALID FOR* More... Essential hypertension [I10] INVALID FOR* Urinary urgency [R39.15] INVALID FOR* Gastroesophageal reflux disease without esophag*INVALID FOR* Nocturia [R35.1] INVALID FOR* Other instructions from your clinician: -K-ray of abdomen -Miralax daily, dulcolax tablets and plenty of fluids -Stay on light diet until bowels working well The following instructions are important for you related to your office visit today with the [facility]. INSTRUCTIONS FOLLOWING YOUR RECENT HERNIA SURGERY You should be returning to your regular diet, If you have having persistent issues with tolerating your diet, please contact our office It is not unusual to have incisional pain for the first 1-2 weeks following surgery. If this persists beyond 2 weeks, contact the office You should leave the Steri-Strips in place until they fall off. You may return to your regular activities. You may drive if you are no longer taking narcotic pain medication. Climbing stairs is fine. Walking in encouraged. Sitting up from bed may be uncomfortable. Sitting up using your lateral abdominal muscles (sitting up sideways) is usually more comfortable. You should perform no lifting greater than 20lbs for the next 6-7 weeks. Usually 8 weeks total from the date of surgery. It is not unusual to have loose stools following surgery. This is usually self limited and related to the antibiotics that were given during your surgical procedure. Fiber supplementation and yogurt with active cultures may help you return to regular bowel activity. If you note loose stools persisting for over 2 weeks, or significant cramping or loose bloody stools, contact the office immediately. Contact the office immediately if any of your incisions become increasingly tender, red or have drainage. Again, if you have any difficulties or concerns, contact our office immediately. If you note any additional difficulties, questions, or concerns, you should contact our office immediately @ [phone] and ask to be transferred to the General Surgery department.Follow-up and Disposition History RecordedEncounter Number: [id number] Status:Closed by BETSY ELLER PA-C on 07/03/17 [facility] PROGRESSon 07-03-2017 PROGRESS HNO ID: [id number] thor: Betsy Ambrose) GrafService: (none)Author Type: Physician AssistantType: Progress NotesFiled: 07/03/2017 11:01 AMNote Text:FOLLOW UP VISIT - HERNIANAME: Maegan Ibarra NO.: [id number] OF SERVICE: 07/03/2017DOB: 1960REFERRING PHYSICIAN: Sofi Agrawal is a patient I am following with Dr. Manzanares for a ventral incisionalhernia. Dr. Manzanares performed a laparoscopic incisional ventral herniarepair with mesh on 06/25/17.The patient currently notes significant constipation. She is still ableto pass flatus but has passed only a few very small stools since surgery.Has been doing miralax and a senna-based laxative occasionally. Herappetite has been good. She denies fever, chills or abdominal pain. Shedoes note some minimal incisional discomfort. She notes no bulges at theoperative siteVITALS: There were no vitals taken for this visit.On examination, the abdomen is mildly distended and appropriately tenderto palpation, with no rebound tenderness or guarding. Bowel soundspresent. The incisions are healing well without signs of infection orinflammation. There are no signs of recurrent hernia formation.AssessmentIMPRESSION: status post laparoscopic incisional hernia repair with mesh,constipation, ?ileusPLAN:-K-ray of abdomen-Miralax daily, dulcolax tablets and plenty of fluids. Avoid tekgh-ffqxiniulocuhj-Ymzs on light diet until bowels working well If the patient notes any problems, she should contact me immediately. she may return to her regular activities as tolerated, with the exceptionof no lifting greater than 20 pounds for the next 7 weeks.Diagnoses: (K59.00) Constipation, unspecified constipation type (primaryencounter diagnosis)(R10.9) Abdominal pain, unspecified abdominal location(Z98.890, Z87.19) S/P hernia repair Betsy Eller PA-C [facility] PROGRESS HNO ID: [id number] thor: Madeline Hannon (Rt) Mariangel Reed: (none)Author Type: TechnicianType: Progress NotesFiled: 07/03/2017 9:58 AMNote Text: Radiology Service Progress NotePATIENT NAME: Maegan PadgettN: [id number] OF SERVICE: July 03, 2017TIME: 9:52 AMPATIENT IDENTITY VERIFICATION COMPLETED USING TWO (2) METHODS: Patientconfirmed name verbally and Date of .PATIENT GENDER DATA: Female. status: : NoBreastfeeding status: NO.PATIENT RELEVANT IMPLANT DATA REVIEWED: Not ApplicableRADIOLOGY DEPARTMENT: General X-ray: Exam(s) Completed: Abdomen X-RayAbdomenPERIPHERAL IV DATA: Not applicableSIGNED BY: RT DebbieJuly 03, 2017 9:52 AM [facility] XR ABDOMEN 1V SUPINEon 07-03 XR ABDOMEN 1V SUPINE * * *Final Report* * *DATE OF EXAM: Jul 03 2017 10:01AM WRX [id number] - XR ABDOMEN 1V SUPINE / REASON: multiple diagnoses * * * * Physician Interpretation * * * * EXAM TITLE: XR ABDOMEN 1V SUPINEEXAM DATE/TIME: 07/03/2017 10:01 AMCOMPARISON: None.CLINICAL INDICATION/HISTORY: Hernia repair one week ago. Constipation.TECHNIQUE: AP views of the abdomen are presented.FINDINGS:Moderate amount of stool and gas in the large bowel loops.No distended small bowel loops.There are no abnormal calcifications.The bony structures appear intact.There appears to be subcutaneous air along the right abdominal wall.IMPRESSION: Moderate amount of stool and gas in large bowel loops.Procurement Agent: NAZIA Transcribe Date/Time: Jul 03 2017 10:11ADictated by : WILY JOHANSEN MDThigail examination was interpreted and the report reviewed and electronically signed by: WILY JOHANSEN MD on Jul 03 2017 10:13AM [id number] [facility] ANES Rudi 06-25-2017 ANES POST HNO ID: [id number] thor: Renee Jimenezervice: AnesthesiologyAuthor Type: AnesthesiologistType: Anesthesia PostOpFiled: 06/25/2017 12:05 PMNote Text:POST ANESTHESIA EVALUATION NOTESERVICE DATE: 06/25/2017SERVICE TIME: 12:05 PMDOB: 1960Vitals: 06/25/1709Temp: 36.5 ?C (97.7 ?F) 37.2 ?C (99 ?F) 36.2 ?C (97.2 ?F) 06/25/1711BP: 147/81 141/80 143/78 143/80 06/25/1711Pulse: 82 82 93 85 06/25/1711Resp: 16 16 16 16 06/25/1711/469803EpQ3: 97% 94% 91% 94%Validated Vital Signs: YesPOST ANES STATUS: No apparent anesthetic complications. The patient isappropriately hydrated with stable respiratory and cardiovascular status.Patient has safe and adequate airway control. The patient has appropriatepain relief and no significant post operative nausea or vomiting. Thepatient has achieved baseline mental status.Further assessment by Anesthesia Service: NoneOther Remarks:SIGNATURE: Renee Faith MD PATIENT NAME: Maegan PadgettDATE: June 25, 2017 : 12:05 PM PAGER/CONTACT #: [phone] [facility] ANES PREOPon 06-25-2017 ANES PREOP HNO ID: [id number] thor: Renee Jimenezervice: AnesthesiologyAuthor Type: AnesthesiologistType: Anesthesia PreOpFiled: 06/25/2017 7:18 AMNote Text: ANESTHESIOLOGY DAY OF SURGERY NOTESERVICE DATE: 06/25/2017SERVICE TIME:7:17 AMDOB: 1960Procedure(s) (LRB):LAPAROSCOPIC HERNIORRHAPHY INCISIONAL ABDOMEN REDUCIBLE (N/A)Surgeon(s):Germaine WoodsanEstimated body mass index is 32.57 kg/(m2) as calculated from thefollowing: Height as of this encounter: 177.8 cm (5' 10). Weight as of this encounter: 103 kg (227 lb).Most recent hematocrit and potassium results:No results found for this basename: HCT,HEMATOCRIT,K,POTASSIUMANES DOS/PREOP NOTE:Vitals: 1BP: 149/92Pulse: 91Resp: 18Temp: 36.5 ?C (97.7 ?F)TempSrc: Temporal ArterySpO2: 98%Weight: 103 kg (227 lb)Height: 177.8 cm (5' 10)ACTIVE PROBLEM LISTRecurrent Umbilical HerniaEssential HypertensionUrinary UrgencyGastroesophageal Reflux Disease Without EsophagitisNocturiaPAST MEDICAL HISTORYDiagnosis Date- Hypertension- Small bowel obstruction 08/2016PAST SURGICAL HISTORYProcedure Laterality Date- COLONOSCOPY- PAST SURGICAL HISTORY OF 08/2016 laparotomy, release of small bowel obstruction- TONSILLECTOMY HX 1965FAMILY HISTORYProblem Relation Age of Onset- Allergies Mother- Anesthesia Problems Mother- Diabetes Mother- Stroke Mother- Cancer Father colon- Stroke Father- Allergies Sister- Anesthesia Problems Sister- Diabetes Sister- Diabetes BrotherSocial History:Social HistorySubstance Use Topics- Smoking status: Never Smoker- Smokeless tobacco: Not on file- Alcohol use NoNo current facility-administered medications on file prior to encounter.Current Outpatient Prescriptions on File Prior to Encounter:Docusate Sodium 100 mg tab Take 100 mg by mouth twice daily.imipramine HCl (TOFRANIL) 50 mg tablet Take 50 mg by mouth daily atbedtime.lansoprazole (PREVACID) 15 mg capsule Take 15 mg by mouth once daily.spironolactone (ALDACTONE) 25 mg tablet Take 25 mg by mouth once daily.Fesoterodine (TOVIAZ) 8 mg Tb24 Take 8 mg by mouth once daily.linaclotide (LINZESS) 145 mcg cap Take 145 mcg by mouth once daily.LACTOBACILLUS ACIDOPHILUS (PROBIOTIC ORAL) Take by mouth.Current Facility-Administered Medications:lactated ringers infusion 30 mL/hr INTRAVENOUS CONTINUOUS Germaine TGuttman Last Rate: 30 mL/hr at 06/25/17 0704 30 mL/hr at 06/25/17 0704clindamycin 900 mg in D5W 50 mL (CLEOCIN) 900 mg INTRAVENOUS Pre-Op OnceRichard T GuttmanAllergies:ALLERGIESAller gen Reactions- Penicillin Unknown- Tetanus Toxoid SwellingDOS EXAM: Adequate NPO Status: YesAnesthetic Risks, Benefits, Alternatives, Personnel and Consent Discussed:YesPatient agrees to proceed: YesPrevious Anesthesia: No history of adverse eventAirway Assessment: MP 2; Neck ROM: Full ROM without neurologic symptoms;Airway Evaluation: Short NeckSymptoms of Sleep Apnea: Age over 50 (56 year old) , HTNDentition: Poor dentitionBroken tooth lower leftAdditional Physical Exam:Lungs: Patient health status unchanged since recent history and physical.See history and physical for exam findings.Cardiac: Patient health status unchanged since recent history andphysical. See history and physical for exam findings.Additional Pertinent Findings: N/ABlood Products: Not anticipated for this procedureAnesthetic Plan: GeneralAnesthetic Monitoring: Standard ASA MonitorsPain Management Plan: Parenteral or OralASA Class: 2Other Medical Problems: NoneChronic Beta Michelle medication administered within 24 hours: N/AI have interviewed and examined the patient. I have reviewed the medicalrecord and/or the pre-anesthesia evaluation, pertinent labs, and testresults.Significant changes in the patient's condition since the History andPhysical, not otherwise documented in primary service progress notes: NoThis contains updated information obtained within 48 hours ofSurgery/Procedure.SIGNATURE: Renee Faith MD PATIENT NAME: Maegan PadgettDATE: June 25, 2017 : 7:17 AM CSN: [id number] [facility] BRIEF OP NOTon 06-25-2017 BRIEF OP NOT HNO ID: [id number] thor: Germaine Florianervice: General SurgeryAuthor Type: PhysicianType: Brief Op NoteFiled: 06/25/2017 9:32 AMNote Text:BRIEF OPERATIVE NOTATION FOR SURGICAL PROCEDURE.Maegan Padgett 1960 [id number] femaleLOG ID: [id number]/Procedure Date: 06/25/2017Incision/Procedure Start Time: 7:56 AMIncision Close/Procedure End Time: 9:23 AMSurgeon(s)/Proceduralist(s) and Ssds Mk 2 Advanced Operator(s):Surgeon(s) and Role: * Germaine Manzanares - PrimaryPhysician Ssds Mk 2 Advanced Operator: Betsy Ambrose (Pa)) RebeccaerREFCHAYITO PHYSICIAN:OutpatientDEPT: CHRISS PROVIDER: Naveed POS:8H6=GQYCTSAFWKXOSTUPBSFV: GeneralASA CLASS: 2 - mildDIAGNOSIS: incisional herniaPROCEDURE: laparoscopic incisional hernia repair - 23555-352ELH: 400EBL: minimalSpecimens: hernia sacADDITIONAL DIAGNOSES:FINDINGS: Ventrio ST 13.8x17.8 mesh - [id number] [facility] [id number] - expires02/16/2019COMPLICATIONS: NonePMHx -PAST MEDICAL HISTORYDiagnosis Date- Hypertension- Small bowel obstruction 08/2016COMORBIDITIES - Obesity and HTNPost Op Occurrences - NoneWound Classification - CleanOperative note dictated in the dictation system.- [id number] Manzanares MD [facility] HISTORY PHYSICALon 7 HISTORY PHYSICAL HNO ID: [id number] thor: Germaine Florianervice: General SurgeryAuthor Type: PhysicianType: HANDPFiled: 06/25/2017 7:08 AMNote Text:HISTORY AND PHYSICAL?Maegan 1960??REFERRING PHYSICIAN: Luis Crowder,*?CHIEF COMPLAINT: Consult (umbilical hernia)?HPI: Maegan is a 56 year old female with a complaint of a bulge in herprior umbilical incision. The patient notes discomfort in this area withlifting and coughing. The symptoms have increased, over the past fewmonths.?The patient notes no symptoms of bowel obstruction and denies nausea orvomiting.The patient was seen by her primary care physician who felt the patienthas a hernia. Maegan was referred for evaluation and treatment.?The patient notes a that she presented to [facility] in [facility]-near [place]-in August 2016 with severe abdominal pain. She wastold she likely had a bowel obstruction. She underwent a lower midlineabdominal exploratory laparotomy. The patient states she was told therewas no true findings other than severe constipation?A copy of her previous operative report does indeed show that theyperformed exploratory laparotomy and felt the only abnormality was fecalimpaction. Follow-up CT scan was obtained. This demonstrated:?IMPRESSION: Limited noncontrast examination of the abdomen and pelvisNonobstructive bowel gas pattern without prominent fecal burden. ?Patulous fat-containing ventral hernia without entrapped bowel or acuteinflammatory change present. ?There is a large hiatal hernia. ?No freeair, free fluid or abscessSuspect right hepatic lobe cyst.?The patient is being seen by me today at the request of Dr. Luis Art MD for my opinion and advice regarding an umbilical/incisionalhernia.?I discussed with the patient with that she was having significant refluxsymptoms given her significant hiatal hernia. She did not seem toindicate that she had significant symptoms and would not consider hiatalhernia repair. She [place] travel [place].?? PAST?MEDICAL?HISTORYPAST MEDICAL HISTORYDiagnosis Date- Hypertension ?- Small bowel obstruction (HCC) 08/2016?? PAST?SURGICAL?HISTORYPAST SURGICAL HISTORYProcedure Laterality Date- PAST SURGICAL HISTORY OF ? 08/2016? laparotomy, release of small bowel obstruction??? CURRENT?MEDICATIONS ?Current Outpatient Prescriptions:doxycycline hyclate (VIBRAMYCIN) 100 mg capsule Take 100 mg by mouth twicedaily.Docusate Sodium 100 mg tab Take 100 mg by mouth twice daily.imipramine HCl (TOFRANIL) 50 mg tablet Take 50 mg by mouth daily atbedtime.lansoprazole (PREVACID) 15 mg capsule Take 15 mg by mouth once daily.spironolactone (ALDACTONE) 25 mg tablet Take 25 mg by mouth once daily.Fesoterodine (TOVIAZ) 8 mg Tb24 Take 8 mg by mouth once daily.linaclotide (LINZESS) 145 mcg cap Take 145 mcg by mouth once daily.LACTOBACILLUS ACIDOPHILUS (PROBIOTIC ORAL) Take by mouth.Levocetirizine (XYZAL) 5 mg tablet Take 5 mg by mouth once daily.?No current facility-administered medications for this visit.?ALLERGIES: Penicillin; Tetanus Toxoid?PERSONAL HISTORY: SOCIAL?HISTORY Social History Marital status: Spouse name: Years of education: Number of children:?Social History Main Topics Smoking status: Never Smoker? Alcohol use: No Drug use: No?FAMILY HISTORY: FAMILY?HISTORYFAMILY HISTORYProblem Relation Age of Onset- Allergies Mother ?- Anesthesia Problems Mother ?- Diabetes Mother ?- Stroke Mother ?- Cancer Father ?? ? colon- Stroke Father ?- Allergies Sister ?- Anesthesia Problems Sister ?- Diabetes Sister ?- Diabetes Brother ???REVIEW OF SYMPTOMS: The review of systems data was entered by the nurse and reviewed by me?Nursing Notes:Deidre Barbosa RN 05/29/2017 9:57 AM SignedREVIEW OF SYSTEMS: General: The patient denies fatigue, denies weight loss, deniesweight gain, denies feeling hot, and denies feelings of cold. Eyes: The patient denies glaucoma, denies eye injury/surgery, doesnot wear glasses or contacts. Ear/Nose/Throat: The patient denies allergies, denies hayfever,denies ear infections, and denies bloody noses. Cardiovascular: The patient denies chest pain, denies heart disease,NOTES high blood pressure,denies cardiac stent, denies prior heart attack,denies irregular heart beat, denies high cholesterol, denies poorcirculation, denies heart failure, other cardiac issues, deniesclaudication, denies cold feet, denies peripheral arterial stent. Respiratory: The patient denies tuberculosis, denies pneumonia,denies frequent cough, denies pulmonary embolism, denies shortness ofbreath, and denies coughing up blood. Gastrointestinal: The patient denies difficulty swallowing, NOTESacid reflux, denies ulcers, denies vomiting, denies jaundice/hepatitis,denies gallbladder problems, denies black or tarry stools, denieshemorrhoids, denies bleeding from rectum, denies diverticulitis, NOTESconstipation, denies diarrhea, denies loss of stool control, and denieshernias. Kidney/Bladder: The patient denies kidney stones, denies urineinfections, and denies bloody urine. Skin: The patient denies a history of skin cancer, deniesbleeding/changing moles, and denies a history of skin rash. Neurologic: The patient denies a history of epilepsy/convulsions,denies headaches, denies head/spinal injuries, and denies stroke/TIA. Psychiatric: The patient denies psychiatric medications, deniesdepression, and denies voices, denies substance abuse. Endocrine: The patient denies thyroid disorders, denies diabetes,and denies hormonal problems. Hematologic: The patient denies a history of bruising, deniesbleeding, and denies anemia, denies blood clots. Infections: The patient denies a history of measles and mumps,denies rheumatic fever, and denies sexually transmitted diseases. Musculoskeletal: The patient denies back pain/injury, denies backproblems, denies sciatica, denies knee/foot trouble, denies arthritis, ordenies gout.??When was patient's last Mammogram screening? unknown? Last Colonoscopy: never?Deidre Barbosa RN??PHYSICAL EXAMINATION:?General: The patient is 56 year old female, well nourished, well hydratedin no acute distress. The patient is oriented to time, place, and person.?VITALS: Blood pressure 140/100, pulse 66, height 177.8 cm (5' 10), akpyyw176 kg (227 lb). Body mass index is 32.57 kg/(m2).?HEENT: Normal cephalic, ataumatic, pupils are equally round, sclera areanicteric, mucous membranes are moist, oropharynx is clear. Neck has nomasses, asymmetry or lymphadenopathy. Thyroid is unremarkable.?Respiratory: Clear to auscultation and percussion. Normal respiratoryexcursion and pattern.?Cardiac: Examination is regular rate and rhythm.?Abdominal exam: Soft, nontender, with no palpable masses. Nohepatosplenomegaly. A not so small based on CT scan, reducible umbilicalincisional hernia, no obvious palpable hernias below the level theumbilicus but some erythema along the incision consistent with stretchingor somewhat delayed healing?Rectal exam: exam deferred?Extremities: no clubbing, cyanosis or edema. No adenopathy.?Other:??LABORATORY VALUES: As Noted?RADIOLOGIC STUDIES: As Noted?AssessmentIMPRESSION: prior umbilical incisional hernia?PLAN:She does not recall our discussion about evaluation and repair of herhiatal hernia. She states her symptoms are not that significant. If shewishes evaluation for her hiatal hernia, I would refer to Johanny escalonafor evaluation and repair. Otherwise...?I plan is to perform a laparoscopic incisional hernia repair with mesh.The planned surgical procedure was discussed extensively with the patient. The risks, benefits, anticipated outcomes and possible complications werementioned. Maegan frankands that all hernia repair surgery has a chance ofrecurrence and/or chronic post operative pain. My staff has alsoexplained the procedure in understandable terms and the patient was giventhe option to take printed material concerning the planned procedure. Thepatient had the opportunity to ask questions concerning the plannedprocedure. The patient freely consents to the planned procedure.?The patient will return to the office a few weeks prior to anticipatedsurgical procedure. She is also to consider her reflux symptoms andwhether she would consider antireflux procedure at the same time.???A letter was sent to Dr. Luis Crowder MD indicating the above findingfor this patient.?Diagnoses: (K43.2) Incisional hernia, without obstruction or gangrene(primary encounter diagnosis)?Anticipated CPT Code: laparoscopic incisional hernia repair - 08176-830?Anticipated Anesthetic: General?Patient weight: Blood pressure 140/100, pulse 66, height 177.8 cm (5'10), weight 103 kg (227 lb). BMI: Body mass index is 32.57 kg/(m2).?Planned antibiotic: clindamycin 600mg IVPB second vp hr assessment to OR?SCDs needed - Yes??Return to Clinic: The patient is instructed to follow-up with me one weekpost operatively.?? Germaine Manzanares MD [facility] NURSING PROGon 06-25-2017 NURSING PROG HNO ID: [id number] thor: Rachelle MatosRn) Yamileth Chadwickice: NursingAuthor Type: Registered NurseType: Nursing Progress NoteFiled: 06/25/2017 2:25 PMNote Text:1140 Received from pacu Drowsy C/o abd pain level 6 Falls to sleepwhile talking 02 sat 93 on room air 8 abd lap sites with steris anddry dressings C/o slight [id number] Dr faith updated on pt c/o [id number] reglan 10mg nf2872 More awake gingerale and crackers to [id number] percocet po one tab for [id number] Up to br Steady when up Pt stated [id number] Taking fluids well C/o abd pain level 6 Anesthesia [id number] Percocet po one [id number] iv removed Discharge instructions reviewed with pt and Ptstates she's ready to go home Assisting pt to [id number] Discharged by wheelchair [facility] NURSING PROG HNO ID: [id number] thor: Chantal (Rn) Gurdeep Estrada: (none)Author Type: Registered NurseType: Nursing Progress NoteFiled: 06/25/2017 11:33 AMNote Text: Nursing Progress NotePatient Name: Maegan PadgettMRN: [id number] Location: [place] Surgery/[place] Surgery Pt much more awake. Still dozing intermittently. Able to holdconversation. Eating ice chips. Nausea gone. Report to FRITZ Mckeon inASCU.This note was completed by: Chantal Estrada RN [facility] NURSING PROG HNO ID: [id number] thor: Chantal MatosRn) Yamileth Estradaice: (none)Author Type: Registered NurseType: Nursing Progress NoteFiled: 06/25/2017 10:57 AMNote Text: Nursing Progress NotePatient Name: Maegan PadgettMRN: [id number] Location: [place] Surgery/[place] Surgery Family notified that pt will be in PACU slightly longer to monitor. Ptstable.This note was completed by: Chantal Estrada RN [facility]: [id number] thor: Chantal (Rn) Gurdeep Estrada: (none)Author Type: Registered NurseType: Nursing Progress NoteFiled: 06/25/2017 10:32 AMNote Text:2 Nursing Progress NotePatient Name: Maegan PadgettMRN: [id number] Location: [place] Surgery/[place] Surgery Pt very sleepy. Does arouse easily but falls right back to sleep afteranswering one questions. Airway not compromised. Skin pink, warm anddry. Rated pain 5/10. No medication at this time due to drowsiness. Ptsleeping and in NAD. No grimacing.This note was completed by: Chantal Estrada RN [facility] ID: [id number] thor: Chantal (Rn) Gurdeep Estrada: (none)Author Type: Registered NurseType: Nursing Progress NoteFiled: 06/25/2017 10:00 AMNote Text: Nursing Progress NotePatient Name: Maegan PadgettMRN: [id number] Location: [place] Surgery/[place] Surgery Pt out of surgery, 8 lap sites. 3 left lateral sites, umbilical site andsuperior umbilical site have 2x2 and opsite dressings. Remaining 3 sitesaround umbilicus have just steri strips. OR nurse Parisa aware. Noactive bleeding. Pt arouses easily with verbal stimuli. Appearscomfortable. IS at bedside as ordered. Will do teaching after ptawakens.This note was completed by: Chantal Estrada RN [facility] NURSING PROG HNO ID: [id number] thor: Jodee (Rn) Radha, RNService: NursingAuthor Type: Registered NurseType: Nursing Progress NoteFiled: 06/25/2017 7:04 AMNote Text: Nursing Progress NotePatient Name: Maegan PadgettMRN: [id number] Location: [place] Surgery/[place] Surgery pt ready for OR, called to bedside, still needs to see anesthesiaand surgeon.This note was completed by: Jodee Garcia RN [facility] OPERATIVE NOon 06-25-2017 OPERATIVE NO HNO ID: [id number] thor: Germaine Florianervice: General SurgeryAuthor Type: PhysicianType: Operative ReportFiled: 06/26/2017 6:36 PMNote Text:[facility]- Operative ReportOSVALDO PADGETTB: 1960 AGE: 56 SEX: FMRN: [id number] ACCTNUM: [id number] SVC: GENS LOCATION: [address] PHYSICIAN: GERMAINE VILLATE OF PROCEDURE: 06/25/2017SURGEON: Germaine Manzanares M.D.FIRE TENDER: Betsy Eller PA-C; Marla Lindsay (sp). ANESTHESIA:General endotracheal.PREOPERATIVE DIAGNOSIS(ES): Incisional ventral hernia.POSTOPERATIVE DIAGNOSIS(ES): Ventral hernia with a 5.5 centimeter defect.NAME OF OPERATION: Laparoscopic incisional hernia repair with meshINDICATIONS:ESTIMATED BLOOD LOSS: Minimal.COMPLICATIONS: None.SPECIMENS: Hernia sac.DRAINS: None.Mesh used was a Ventrio ST hernia patch, size 17.8 x 13.8 centimeters,reference number [id number], lot number [id number], expires 02/16/2019. URINEOUTPUT: No catheter.LOG ID NUMBER: [id number].START TIME: 7:56.END TIME: 9:23.ASA: 2.IV FLUIDS: 400 cc.DISPOSITION: The patient taken to PACU in stable condition.FINDINGS: As described above.PROCEDURE: The patient was brought to the operating suite after herhernia site was marked in the holding area. Sign-in was performedverifying the patient, site, procedure, position, critical nursinginformation, VTE, and antibiotic prophylaxis. The patient received 900mg of clindamycin, had sequential compression devices placed. Followinginduction of general anesthetic, the patient's abdomen was prepped anddraped in the usual fashion. Time-out was performed verifying thepatient, site, procedure, position. Incision was made at the level ofthe umbilicus, just below it, and the hernia sac was entered. Two staysutures were placed. Jolly trocar was inserted through the stay sutures. Pneumoperitoneum to 15 mmHg was insufflated. Visual inspection revealed1 adhesion at the inferior aspect of the fascial defect. Threeadditional 5 ports were placed in the left lateral position. Followingthis, a Harmonic Scalpel was used to free up the solitary adhesion.Later on, harmonic scalpel was used to divide the falciform ligament toallow the mesh to lay flat. The fascial defect was grasped and thehernia sac freed up circumferentially at the level of the fascial defectand released from the subcutaneous fat and underlying tissues. Thehernia sac was dissected off the superficial skin. A small opening wasmade at the base of the umbilicus following removal of the hernia sac.This was later closed with 3-0 Vicryl nqguso-el-lwlws suture. The herniasac was removed. The fascial margin checked for good hemostasis.Following this, the defect was measured and noted to be just slightlybigger than 5 centimeters and was relatively circular in character. Dueto the patient's size and fascial margin, a 17.[address] mesh was placed. It was marked for cranial and caudal axes.Transfixing 0 Surgipro sutures were placed at the 12 o'clock, 6 o'clock,9 and 3 o'clock positions with good placement of the mesh. MultipleReliaTack tacks were used to secure the mesh at the outer margin, innermargin, and at the middle fascial defect. With good position of themesh, the 5 ports, upper and mid were removed under direct visualization. Pneumoperitoneum was released. The lower port was removed. Thesubumbilical Jolly port was removed. The skin was closed withinterrupted 4-0 Biosyn subcuticular suture. Local anesthetic wasinjected. Steri-Strips were applied. The patient was extubated, broughtto recovery room in stable condition.I was present for the entire case. My physician clerical dentist assistant performedsubcuticular closure.Germaine Manzanares M.D.General SurgeryRG:[id number]: 06/25/2017 09:32:07T: 06/25/2017 20:24:30Job #: [id number] [facility] PLAN OF CAREon 06-25-2017 PLAN OF CARE HNO ID: [id number] thor: Pennie Coelho (Manager Leasing)Service: (none)Author Type: TechnicianType: Plan of CareFiled: 06/25/2017 12:13 PMNote Text:CHIEF OF HOSPITAL MEDICINE BEDSIDE DELIVERY SURVEY1. Patient to use [facility] Bedside Delivery - YES2. If fax, patient would like us to fax prescriptions to Pharmacy ofchoice a. Pharmacy: b. Location: c. Phone:3. Insurance card on file - YES4. Credit card for payment - YESPHARMACY BEDSIDE DELIVERY SERVICEPatient Name: Maegan PadgettMRN: [id number] marked outpatient medications were Filled at: [facility] and delivered tothe patient's bedside to pharm p/uMedication ListSTART taking these medicationsX oxyCODONE-acetaminophen 5-325 mg tabletCommonly known as: PERCOCETTake 1 tablet by mouth every 4 hours as needed for up to 28 doses.CONTINUE taking these medications Docusate Sodium 100 mg Tab imipramine HCl 50 mg tabletCommonly known as: TOFRANIL lansoprazole 15 mg capsuleCommonly known as: PREVACID LINZESS 145 mcg CapGeneric drug: linaclotide PROBIOTIC ORAL spironolactone 25 mg tabletCommonly known as: ALDACTONE TOVIAZ 8 mg Vy14Wskxwvc drug: Fesoterodine ZYRTEC-D Ajconcepcion Coelho (Manager Leasing)PAGER: [id number] 2016 12:13 PM Normal [facility] SURGICAL PATHOLOGYon 017 SURGICAL PATHOLOGY [facility]: [id number] Physician: GERMAINE MANZANARES MD FINAL DIAGNOSISUmbilical hernia, herniorrhaphy - Hernia sac.SEK/RSB/rw 06/27/2017 Philip Choudhary MD(Electronic Signature) SPECIMEN SUBMITTEDA: HERNIA SAC CLINICAL DATARECURRENT UMBILICAL HERNIA, LMP: PMPLAPAROSCOPIC INCISIONAL HERNIA REPAIRGROSS DESCRIPTIONA. Received in formalin labeled hernia sac is one segment of pink-tanfibromembranous soft tissue measuring 4.7 x 4.6 x 3.2 cm. No nodularity orinduration is identified. Shipping And Receiving Supervisor sections are submitted in cassetteA1.BALWINDER/hakeem/06/25/17Gross examination performed at [facility] [place] [address] of Report: 06/27/2017Date of Procedure: 06/25/2017Date of Receipt: 06/25/2017Submitted by: GERMAINE MANZANARES MDLocation: MEORDiagnostic interpretation performed at [facility], [facility]The [place] [address]. [facility] Comment on above: Performed By: #### P ATHS ####[facility] [id number] [place], [place] [phone] HISTORY PHYSICALon 7 HISTORY PHYSICAL HNO ID: [id number] thor: Peggy Ambrose) Eloise: (none)Author Type: Physician AssistantType: HANDPFiled: 06/20/2017 12:33 PMNote Text:HISTORY AND PHYSICAL EXAMINATIONSERVICE DATE: 06/20/2017SERVICE TIME: 8:16 [facility] PHYSICIAN: DEB Mccormack FOR VISIT:Maegan Padgett is a 56 year old female who is scheduled for Laparoscopicincisional hernia repair at the request of Dr. Germaine Manzanares forconsultation. My final recommendation will be communicated back to therequesting physician by way of shared medical record or letter.The patient has the following:ACTIVE PROBLEM LISTRecurrent Umbilical HerniaEssential HypertensionUrinary UrgencyGastroesophageal Reflux Disease Without EsophagitisNocturiaSUBJECTIVECH IEF COMPLAINT: herniaHPI: 56 yo female with abdominal umbilical hernia for about 6 months anddiscomfort noticed over the past month. She has a pressure in the area ather umbilicus worse with bearing down and coughing. +chronic constipationon Rx for that. No other GI complaints and no prior treatment.PAST MEDICAL HISTORYDiagnosis Date- Hypertension- Small bowel obstruction (HCC) 08/2016PAST SURGICAL HISTORYProcedure Laterality Date- COLONOSCOPY- PAST SURGICAL HISTORY OF 08/2016 laparotomy, release of small bowel obstruction- TONSILLECTOMY HX 1965FAMILY HISTORYProblem Relation Age of Onset- Allergies Mother- Anesthesia Problems Mother- Diabetes Mother- Stroke Mother- Cancer Father colon- Stroke Father- Allergies Sister- Anesthesia Problems Sister- Diabetes Sister- Diabetes BrotherSOCIAL HISTORY:Social History Marital status: Spouse name: Years of education: Number of children:Social History Main Topics Smoking status: Never Smoker Alcohol use: No Drug use: NoPrior to Admission medications as of 06/20/17 0815Medication Sig Last Dose TakingCETIRIZINE HCL/PSEUDOEPHEDRINE (ZYRTEC-D ORAL) Take 1 tablet by mouth oncedaily. YesDocusate Sodium 100 mg tab Take 100 mg by mouth twice daily. Yesimipramine HCl (TOFRANIL) 50 mg tablet Take 50 mg by mouth daily atbedtime. Yeslansoprazole (PREVACID) 15 mg capsule Take 15 mg by mouth once daily. Yesspironolactone (ALDACTONE) 25 mg tablet Take 25 mg by mouth once daily.YesFesoterodine (TOVIAZ) 8 mg Tb24 Take 8 mg by mouth once daily. Yeslinaclotide (LINZESS) 145 mcg cap Take 145 mcg by mouth once daily. YesLACTOBACILLUS ACIDOPHILUS (PROBIOTIC ORAL) Take by mouth. YesNo medication comments found.ALLERGIESAllergen Reactions- Penicillin Unknown- Tetanus Toxoid SwellingREVIEW OF SYSTEMS:PAIN ASSESSMENT:General: No weight loss, malaise or fevers.Neuro: No history of TIA's, stroke, BUSINESS SERVICES MANAGER tumor, impaired sensorium,hemiplegia, paraplegia or quadraplegia. No neurological symptoms orproblems.Respiratory: No history of current cough or dyspnea, or pneumonia in thepast 6 weeks. No history of respiratory/pulmonary symptoms or problems.chronic allergies and sinus. was on antibiotic 05/27/17 DoxyCardiovascular: Positive for: Hypertension, Negative for Recent GA,Arrhythmia, Chest Pain, CHF, PVD, Valvular Heart Disease, DVT/PEGI: Positive for GERD, chronic constipation - on rx, Negative for PUD,Abdominal pain, Liver disease, Pancreatitis, DiverticulitisGU: Negative for dysuria, incontinence and hematuria, Positive forfrequency controlled on Toviaz and frequent urinary tract infections notin the past 6 weeks + nocturia - on rxGYN: Negative for abnormal vaginal bleeding, abnormal vaginal discharge. : N/A, No LMP recorded. Patient is postmenopausal.Endocrine: No history of diabetes. Has not taken steroids within the past30 days. No history of endocrinological symptoms or problems.Hematology: No history of bleeding or clotting disorder. Pt is not takinganti-coagulation or platelet medications. No history of hematologicalsymptoms or problems.Oncology: No history of CA metastasis, chemo within 30 days, orradiotherapy within 90 days. Has not lost 10% of body wt in 6 months. Nohistory of oncological symptoms or problems.Psych: No history of psychiatric symptoms or problems.Musculoskeletal: Negative for joint pain or swelling, back pain or musclepain.Skin: + granuloma annulare- throughout body, abdomen and limbsOBJECTIVEPHYSICAL EXAM:VITALS:BP 142/81 Pulse 101 Temp (Src) 97.7 (Temporal Artery) Resp 22 Ht5' 10 (1.78m) Wt 227 lb (103.0kg) SpO2 99% BMI 32.57 kg/(m2).General: Alert and oriented, No acute distress, Healthy appearanceSkin: + circular erythematous lesions on UE's and a few abdominal, notnear umbilicusHEENT: EOM, pupils equal, round and reactive.Cardiovascular: Normal S1 AND S2, no rubs, murmurs or gallops. No JVD. Pulseregular.Lungs: Normal breath sounds, no wheezes or crackles., No chest deformitiesor chest wall tenderness.Abdomen: Hernia umbilical, nontenderExtremities: No deformity, no edema or tenderness, no joint swelling orclubbing.Neurological: Normal cognition and motor skills. Gait normal. Noweakness or sensory deficit.Pulses: Carotid and radial pulses normal +2.Diagnostic tests reviewed for today's visit: Lab Value Units Date High Low HB No results within date range. HCT No results within date range. WBC No results within date range. PLT No results within date range. NA No results within date range. K No results within date range. GLUC No results within date range. BUN No results within date range. CREAT No results within date range. PTSEC No results within date range. INR No results within date range. APTT No results within date range. ALT No results within date range. AST No results within date range. TBILI No results within date range. TSH No results within date range. Lab Value Units Date High Low HCGQT No results within date range. UHCG No results within date range. HCG, BODY* No results within date range. Lab Value Units Date High Low ABORHD No results within date range. ABSCREEN No results within date range.No results found for: UPP3SErps recent labs- from outside PCP 06/17/17 CBC, BMP WNLAssessmentASSESSMENTHTN - Well controlledGERDUrinary frequency- on rx'sChronic sinus congestion- completed antibiotic 06/06/17METS:Participate in moderate recreational activities, such as golf, bowling,dancing, doubles tennis, or throwing a baseball or football (6.00 METs)ASA Class: 2ANESTHESIA FINDINGS:Intubation History: No history of difficult intubationSignificant Anesthesia Considerations: NoneAirway Exam: General: Normal appearance Mallampati Score is CLASS II ULBT: Unable to perform Neck: Normal appearance and function, Distance from hyoid to mentumduring neck extension is at least 3 finger breaths Mouth: Normal tongue size Dentition: IntactAirway History: No abnormal airway historySTOP BANG Score:Criteria:HypertensionAge over 50 (56 year old)Neck circumference > 15.75 inchesScore = 3PLANThis patient is optimally prepared for surgery.CONSULTS:Patient does not require consults for optimization at this time.The Following Tests/Procedures Have Been Initiated:Labs not indicated per PACC protocolPlanned Anesthetic: GeneralInstructions Given to Patient:Patient given verbal and written preop instructions and voicescomprehension and compliance.SIGNATURE: Peggy Mckenzie PA-C PATIENT NAME: Maegan PadgettDATE: June 20, 2017 : 8:16 AM PAGER/CONTACT #: [facility] [place] NURSING PROGon 06-20-2017 NURSING PROG HNO ID: [id number] thor: Katherine (Rn) Gurdeep Jade: (none)Author Type: Registered NurseType: Nursing Progress NoteFiled: 06/20/2017 1:21 PMNote Text:PACC Nurse Progress NoteHistory AND Physical:PACC Visit Date: 06/20/2017Original HANDP Date: 06/20/2017ED visit Date: N/AOutside HANDP Scanned Date: N/ALabs Within Last 6 Months:not indicated per PACC protocolImaging Within Last 12 Months:CT Scan03/12/2017 CT abdomen and pelvis results in EPICCardiac Testing:N/ALast Menstrual Period:LMP Date: NOT RECOREDEPostmenopausal >1yr: Yes,S/P Hysterectomy: NoBMI Percentile (PEDS):N/ARisk Assessment:N/AAnesthesia Review:N/ANarrative:N/AChart Check:CLAUDE Smitheptember 2016 1:20 PM [facility] PROGRESSon 05-30-2017 PROGRESS HNO ID: [id number] thor: Germaine Romano: (none)Author Type: PhysicianType: Progress NotesFiled: 05/30/2017 6:11 AMNote Text:HISTORY AND PHYSICALRose Lewis1960REFERRING PHYSICIAN: Luis Crowder,*CHIEF COMPLAINT: Consult (umbilical hernia)HPI: Maegan is a 56 year old female with a complaint of a bulge in herprior umbilical incision. The patient notes discomfort in this area withlifting and coughing. The symptoms have increased, over the past fewmonths.The patient notes no symptoms of bowel obstruction and denies nausea orvomiting.The patient was seen by her primary care physician who felt the patienthas a hernia. Maegan was referred for evaluation and treatment.The patient notes a that she presented to [facility] in [facility]-near [place]-in August 2016 with severe abdominal pain. She wastold she likely had a bowel obstruction. She underwent a lower midlineabdominal exploratory laparotomy. The patient states she was told therewas no true findings other than severe constipationA copy of her previous operative report does indeed show that theyperformed exploratory laparotomy and felt the only abnormality was fecalimpaction. Follow-up CT scan was obtained. This demonstrated:IMPRESSION: Limited noncontrast examination of the abdomen and pelvisNonobstructive bowel gas pattern without prominent fecal burden. ?Patulous fat-containing ventral hernia without entrapped bowel or acuteinflammatory change present. ?There is a large hiatal hernia. ?No freeair, free fluid or abscessSuspect right hepatic lobe cyst.The patient is being seen by me today at the request of Dr. Luis Art MD for my opinion and advice regarding an umbilical/incisionalhernia.I discussed with the patient with that she was having significant refluxsymptoms given her significant hiatal hernia. She did not seem toindicate that she had significant symptoms and would not consider hiatalhernia repair. She as [place] travel [place].PAST MEDICAL HISTORYDiagnosis Date- Hypertension- Small bowel obstruction (HCC) 08/2016PAST SURGICAL HISTORYProcedure Laterality Date- PAST SURGICAL HISTORY OF 08/2016 laparotomy, release of small bowel obstructionCurrent Outpatient Prescriptions:doxycycline hyclate (VIBRAMYCIN) 100 mg capsule Take 100 mg by mouth twicedaily.Docusate Sodium 100 mg tab Take 100 mg by mouth twice daily.imipramine HCl (TOFRANIL) 50 mg tablet Take 50 mg by mouth daily atbedtime.lansoprazole (PREVACID) 15 mg capsule Take 15 mg by mouth once daily.spironolactone (ALDACTONE) 25 mg tablet Take 25 mg by mouth once daily.Fesoterodine (TOVIAZ) 8 mg Tb24 Take 8 mg by mouth once daily.linaclotide (LINZESS) 145 mcg cap Take 145 mcg by mouth once daily.LACTOBACILLUS ACIDOPHILUS (PROBIOTIC ORAL) Take by mouth.Levocetirizine (XYZAL) 5 mg tablet Take 5 mg by mouth once daily.No current facility-administered medications for this visit.ALLERGIES: Penicillin; Tetanus ToxoidPERSONAL HISTORY: Social History Marital status: Spouse name: Years of education: Number of children:Social History Main Topics Smoking status: Never Smoker Alcohol use: No Drug use: NoFAMILY HISTORY:FAMILY HISTORYProblem Relation Age of Onset- Allergies Mother- Anesthesia Problems Mother- Diabetes Mother- Stroke Mother- Cancer Father colon- Stroke Father- Allergies Sister- Anesthesia Problems Sister- Diabetes Sister- Diabetes BrotherREVIEW OF SYMPTOMS: The review of systems data was entered by the nurse and reviewed by Giovana Notes:Deidre Barbosa RN 05/29/2017 9:57 AM SignedREVIEW OF SYSTEMS: General: The patient denies fatigue, denies weight loss, deniesweight gain, denies feeling hot, and denies feelings of cold. Eyes: The patient denies glaucoma, denies eye injury/surgery, doesnot wear glasses or contacts. Ear/Nose/Throat: The patient denies allergies, denies hayfever,denies ear infections, and denies bloody noses. Cardiovascular: The patient denies chest pain, denies heart disease,NOTES high blood pressure,denies cardiac stent, denies prior heart attack,denies irregular heart beat, denies high cholesterol, denies poorcirculation, denies heart failure, other cardiac issues, deniesclaudication, denies cold feet, denies peripheral arterial stent. Respiratory: The patient denies tuberculosis, denies pneumonia,denies frequent cough, denies pulmonary embolism, denies shortness ofbreath, and denies coughing up blood. Gastrointestinal: The patient denies difficulty swallowing, NOTESacid reflux, denies ulcers, denies vomiting, denies jaundice/hepatitis,denies gallbladder problems, denies black or tarry stools, denieshemorrhoids, denies bleeding from rectum, denies diverticulitis, NOTESconstipation, denies diarrhea, denies loss of stool control, and denieshernias. Kidney/Bladder: The patient denies kidney stones, denies urineinfections, and denies bloody urine. Skin: The patient denies a history of skin cancer, deniesbleeding/changing moles, and denies a history of skin rash. Neurologic: The patient denies a history of epilepsy/convulsions,denies headaches, denies head/spinal injuries, and denies stroke/TIA. Psychiatric: The patient denies psychiatric medications, deniesdepression, and denies voices, denies substance abuse. Endocrine: The patient denies thyroid disorders, denies diabetes,and denies hormonal problems. Hematologic: The patient denies a history of bruising, deniesbleeding, and denies anemia, denies blood clots. Infections: The patient denies a history of measles and mumps,denies rheumatic fever, and denies sexually transmitted diseases. Musculoskeletal: The patient denies back pain/injury, denies backproblems, denies sciatica, denies knee/foot trouble, denies arthritis, ordenies gout.When was patient's last Mammogram screening? unknown Last Colonoscopy: neverAmy Barbosa RNPHYSICAL EXAMINATION:General: The patient is 56 year old female, well nourished, well hydratedin no acute distress. The patient is oriented to time, place, and person.VITALS: Blood pressure 140/100, pulse 66, height 177.8 cm (5' 10), itaead818 kg (227 lb). Body mass index is 32.57 kg/(m2).HEENT: Normal cephalic, ataumatic, pupils are equally round, sclera areanicteric, mucous membranes are moist, oropharynx is clear. Neck has nomasses, asymmetry or lymphadenopathy. Thyroid is unremarkable.Respiratory: Clear to auscultation and percussion. Normal respiratoryexcursion and pattern.Cardiac: Examination is regular rate and rhythm.Abdominal exam: Soft, nontender, with no palpable masses. Nohepatosplenomegaly. A not so small based on CT scan, reducible umbilicalincisional hernia, no obvious palpable hernias below the level theumbilicus but some erythema along the incision consistent with stretchingor somewhat delayed healingRectal exam: exam deferredExtremities: no clubbing, cyanosis or edema. No adenopathy.Other:LABORATORY VALUES: As NotedRADIOLOGIC STUDIES: As NotedAssessmentIMPRESSION: prior umbilical incisional herniaPLAN:She does not recall our discussion about evaluation and repair of herhiatal hernia. She states her symptoms are not that significant. If shewishes evaluation for her hiatal hernia, I would refer to Johanny escalonafor evaluation and repair. Otherwise...I plan is to perform a laparoscopic incisional hernia repair with mesh.The planned surgical procedure was discussed extensively with the patient. The risks, benefits, anticipated outcomes and possible complications werementioned. Maegan undersands that all hernia repair surgery has a chance ofrecurrence and/or chronic post operative pain. My staff has alsoexplained the procedure in understandable terms and the patient was giventhe option to take printed material concerning the planned procedure. Thepatient had the opportunity to ask questions concerning the plannedprocedure. The patient freely consents to the planned procedure.The patient will return to the office a few weeks prior to anticipatedsurgical procedure. She is also to consider her reflux symptoms andwhether she would consider antireflux procedure at the same time.A letter was sent to Dr. Luis Crowder MD indicating the above findingfor this patient.Diagnoses: (K43.2) Incisional hernia, without obstruction or gangrene(primary encounter diagnosis)Anticipated CPT Code: laparoscopic incisional hernia repair - 17853-673Pvocuolelee Anesthetic: GeneralPatient weight: Blood pressure 140/100, pulse 66, height 177.8 cm (5'10), weight 103 kg (227 lb). BMI: Body mass index is 32.57 kg/(m2).Planned antibiotic: clindamycin 600mg IVPB second vp hr assessment to ORSCDs needed - YesReturn to Clinic: The patient is instructed to follow-up with me one weekpost operatively. MD Michelle Abernathy [facility] CNOVon 05-29-2017 CNOV Office Visit (GENSWS) MAEGAN PADGETT ([id number]) 1960 FDate Time Provider Department05/29/17 9:00 AM GERMAINE MANZANARES During your visit today, we recorded the following information about you: Pulse Blood pressure Weight Height 66/minute 140/100 103 kg 1.778 Seble Familia RN 05/29/2017 9:57 AM SignedREVIEW OF SYSTEMS: General: The patient denies fatigue, denies weight loss, denies weightgain, denies feeling hot, and denies feelings of cold. Eyes: The patient denies glaucoma, denies eye injury/surgery, does notwear glasses or contacts. Ear/Nose/Throat: The patient denies allergies, denies hayfever, deniesear infections, and denies bloody noses. Cardiovascular: The patient denies chest pain, denies heart disease,NOTES high blood pressure,denies cardiac stent, denies prior heart attack,denies irregular heart beat, denies high cholesterol, denies poor circulation,denies heart failure, other cardiac issues, denies claudication, denies coldfeet, denies peripheral arterial stent. Respiratory: The patient denies tuberculosis, denies pneumonia, deniesfrequent cough, denies pulmonary embolism, denies shortness of breath, anddenies coughing up blood. Gastrointestinal: The patient denies difficulty swallowing, NOTES acidreflux, denies ulcers, denies vomiting, denies jaundice/hepatitis, deniesgallbladder problems, denies black or tarry stools, denies hemorrhoids, deniesbleeding from rectum, denies diverticulitis, NOTES constipation, deniesdiarrhea, denies loss of stool control, and denies hernias. Kidney/Bladder: The patient denies kidney stones, denies urineinfections, and denies bloody urine. Skin: The patient denies a history of skin cancer, deniesbleeding/changing moles, and denies a history of skin rash. Neurologic: The patient denies a history of epilepsy/convulsions, deniesheadaches, denies head/spinal injuries, and denies stroke/TIA. Psychiatric: The patient denies psychiatric medications, deniesdepression, and denies voices, denies substance abuse. Endocrine: The patient denies thyroid disorders, denies diabetes, anddenies hormonal problems. Hematologic: The patient denies a history of bruising, denies bleeding,and denies anemia, denies blood clots. Infections: The patient denies a history of measles and mumps, deniesrheumatic fever, and denies sexually transmitted diseases. Musculoskeletal: The patient denies back pain/injury, denies backproblems, denies sciatica, denies knee/foot trouble, denies arthritis, ordenies gout.When was patient's last Mammogram screening? unknown Last Colonoscopy: Cristiano Manzanares MD 05/30/2017 6:11 AM SignedHISTORY AND PHYSICALRose Lottie1960REFERRING PHYSICIAN: Luis Crowder,*CHIEF COMPLAINT: Consult (umbilical hernia)HPI: Maegan is a 56 year old female with a complaint of a bulge in her priorumbilical incision. The patient notes discomfort in this area with lifting andcoughing. The symptoms have increased, over the past few months.The patient notes no symptoms of bowel obstruction and denies nausea orvomiting.The patient was seen by her primary care physician who felt the patient has ahernia. Maegan was referred for evaluation and treatment.The patient notes a that she presented to [facility] in [facility]-near [place]-in August 2016 with severe abdominal pain. She was told juan carlos had a bowel obstruction. She underwent a lower midline abdominalexploratory laparotomy. The patient states she was told there was no truefindings other than severe constipationA copy of her previous operative report does indeed show that they performedexploratory laparotomy and felt the only abnormality was fecal impaction.Follow-up CT scan was obtained. This demonstrated:IMPRESSION: Limited noncontrast examination of the abdomen and pelvisNonobstructive bowel gas pattern without prominent fecal burden. ?Patulous fat-containing ventral hernia without entrapped bowel or acuteinflammatory change present. ?There is a large hiatal hernia. ?No freeair, free fluid or abscessSuspect right hepatic lobe cyst.The patient is being seen by me today at the request of Dr. Luis Crowder MDfor my opinion and advice regarding an umbilical/incisional hernia.I discussed with the patient with that she was having significant refluxsymptoms given her significant hiatal hernia. She did not seem to indicatethat she had significant symptoms and would not consider hiatal hernia repair.She as returned [place] her travel [place].PAST MEDICAL HISTORYDiagnosis Date- Hypertension- Small bowel obstruction (HCC) 08/2016PAST SURGICAL HISTORYProcedure Laterality Date- PAST SURGICAL HISTORY OF 08/2016 laparotomy, release of small bowel obstructionCurrent Outpatient Prescriptions:doxycycline hyclate (VIBRAMYCIN) 100 mg capsule Take 100 mg by mouth twicedaily.Docusate Sodium 100 mg tab Take 100 mg by mouth twice daily.imipramine HCl (TOFRANIL) 50 mg tablet Take 50 mg by mouth daily at bedtime.lansoprazole (PREVACID) 15 mg capsule Take 15 mg by mouth once daily.spironolactone (ALDACTONE) 25 mg tablet Take 25 mg by mouth once daily.Fesoterodine (TOVIAZ) 8 mg Tb24 Take 8 mg by mouth once daily.linaclotide (LINZESS) 145 mcg cap Take 145 mcg by mouth once daily.LACTOBACILLUS ACIDOPHILUS (PROBIOTIC ORAL) Take by mouth.Levocetirizine (XYZAL) 5 mg tablet Take 5 mg by mouth once daily.No current facility-administered medications for this visit.ALLERGIES: Penicillin; Tetanus ToxoidPERSONAL HISTORY: Social History Marital status: Spouse name: Years of education: Number of children:Social History Main Topics Smoking status: Never Smoker Alcohol use: No Drug use: NoFAMILY HISTORY:FAMILY HISTORYProblem Relation Age of Onset- Allergies Mother- Anesthesia Problems Mother- Diabetes Mother- Stroke Mother- Cancer Father colon- Stroke Father- Allergies Sister- Anesthesia Problems Sister- Diabetes Sister- Diabetes BrotherREVIEW OF SYMPTOMS: The review of systems data was entered by the nurse and reviewed by Giovana Notes:Deidre Barbosa RN 05/29/2017 9:57 AM SignedREVIEW OF SYSTEMS: General: The patient denies fatigue, denies weight loss, denies weightgain, denies feeling hot, and denies feelings of cold. Eyes: The patient denies glaucoma, denies eye injury/surgery, does notwear glasses or contacts. Ear/Nose/Throat: The patient denies allergies, denies hayfever, deniesear infections, and denies bloody noses. Cardiovascular: The patient denies chest pain, denies heart disease,NOTES high blood pressure,denies cardiac stent, denies prior heart attack,denies irregular heart beat, denies high cholesterol, denies poor circulation,denies heart failure, other cardiac issues, denies claudication, denies coldfeet, denies peripheral arterial stent. Respiratory: The patient denies tuberculosis, denies pneumonia, deniesfrequent cough, denies pulmonary embolism, denies shortness of breath, anddenies coughing up blood. Gastrointestinal: The patient denies difficulty swallowing, NOTES acidreflux, denies ulcers, denies vomiting, denies jaundice/hepatitis, deniesgallbladder problems, denies black or tarry stools, denies hemorrhoids, deniesbleeding from rectum, denies diverticulitis, NOTES constipation, deniesdiarrhea, denies loss of stool control, and denies hernias. Kidney/Bladder: The patient denies kidney stones, denies urineinfections, and denies bloody urine. Skin: The patient denies a history of skin cancer, deniesbleeding/changing moles, and denies a history of skin rash. Neurologic: The patient denies a history of epilepsy/convulsions, deniesheadaches, denies head/spinal injuries, and denies stroke/TIA. Psychiatric: The patient denies psychiatric medications, deniesdepression, and denies voices, denies substance abuse. Endocrine: The patient denies thyroid disorders, denies diabetes, anddenies hormonal problems. Hematologic: The patient denies a history of bruising, denies bleeding,and denies anemia, denies blood clots. Infections: The patient denies a history of measles and mumps, deniesrheumatic fever, and denies sexually transmitted diseases. Musculoskeletal: The patient denies back pain/injury, denies backproblems, denies sciatica, denies knee/foot trouble, denies arthritis, ordenies gout.When was patient's last Mammogram screening? unknown Last Colonoscopy: neverAmy Barbosa RNPHYSICAL EXAMINATION:General: The patient is 56 year old female, well nourished, well hydrated inno acute distress. The patient is oriented to time, place, and person.VITALS: Blood pressure 140/100, pulse 66, height 177.8 cm (5' 10ANDquot;), [id number] kg (227 lb). Body mass index is 32.57 kg/(m2).HEENT: Normal cephalic, ataumatic, pupils are equally round, sclera areanicteric, mucous membranes are moist, oropharynx is clear. Neck has nomasses, asymmetry or lymphadenopathy. Thyroid is unremarkable.Respiratory: Clear to auscultation and percussion. Normal respiratoryexcursion and pattern.Cardiac: Examination is regular rate and rhythm.Abdominal exam: Soft, nontender, with no palpable masses. Nohepatosplenomegaly. A not so small based on CT scan, reducible umbilicalincisional hernia, no obvious palpable hernias below the level the umbilicusbut some erythema along the incision consistent with stretching or somewhatdelayed healingRectal exam: exam deferredExtremities: no clubbing, cyanosis or edema. No adenopathy.Other:LABORATORY VALUES: As NotedRADIOLOGIC STUDIES: As NotedAssessmentIMPRESSION: prior umbilical incisional herniaPLAN:She does not recall our discussion about evaluation and repair of her hiatalhernia. She states her symptoms are not that significant. If she wishesevaluation for her hiatal hernia, I would refer to [facility] and repair. Otherwise...I plan is to perform a laparoscopic incisional hernia repair with mesh. Theplanned surgical procedure was discussed extensively with the patient. Therisks, benefits, anticipated outcomes and possible complications werementioned. Maegan [facility] centerands that all hernia repair surgery has a chance ofrecurrence and/or chronic post operative pain. My staff has also explained theprocedure in understandable terms and the patient was given the option to takeprinted material concerning the planned procedure. The patient had theopportunity to ask questions concerning the planned procedure. The patientfreely consents to the planned procedure.The patient will return to the office a few weeks prior to anticipated surgicalprocedure. She is also to consider her reflux symptoms and whether she wouldconsider antireflux procedure at the same time.A letter was sent to Dr. Luis Crowder MD indicating the above finding forthis patient.Diagnoses: (K43.2) Incisional hernia, without obstruction or gangrene (primaryencounter diagnosis)Anticipated CPT Code: laparoscopic incisional hernia repair - [id number] Anesthetic: GeneralPatient weight: Blood pressure 140/100, pulse 66, height 177.8 cm (5'10ANDquot;), weight 103 kg (227 lb). BMI: Body mass index is 32.57 kg/(m2).Planned antibiotic: clindamycin 600mg IVPB second vp hr assessment to ORSCDs needed - YesReturn to Clinic: The patient is instructed to follow-up with me one week postoperatively. Germaine Manzanares, MDReferring Provider: LUIS CROWDER [[id number]]Allergies As of Date: 05/29/2017 Noted Allergy ReactionPENICILLIN 03/06/2017 16 - UnknownTETANUS TOXOID 03/06/2017 7 - SwellingDate Reviewed: 05/29/2017Reviewed by: Deidre Babrosa RN - Fully AssessedReason for Visit: Pre-Op Exam [87] Cmt: herniaPrimary Visit Diagnosis:Incisional hernia, without obstruction or gangrene [K43.2]Order(s):SURGICAL REQUEST - ELECTIVE [[id number]] Order #: [id number]: 1Prescriptions as of 05/29/2017 Sig: DOXYCYCLINE HYCLATE 100 MG CA* Take 100 mg by mouth twice da* DOCUSATE SODIUM 100 MG TABLET Take 100 mg by mouth twice da* IMIPRAMINE 50 MG TABLET Take 50 mg by mouth daily at * LANSOPRAZOLE 15 MG CAPSULE,DE* Take 15 mg by mouth once jason* SPIRONOLACTONE 25 MG TABLET Take 25 mg by mouth once jason* FESOTERODINE ER 8 MG TABLET,E* Take 8 mg by mouth once daily. LINACLOTIDE 145 MCG CAPSULE Take 145 mcg by mouth once da* PROBIOTIC ORAL Take by mouth. LEVOCETIRIZINE 5 MG TABLET Take 5 mg by mouth once daily.Problem List As Of Date 05/29/2017 Noted Resolved Recurrent umbilical hernia [K42.9] INVALID FOR* More...Visit Notes:>> Deidre Barbosa RN [facility] May 29, 2017 9:56 AM Status: SignedREVIEW OF SYSTEMS: General: The patient denies fatigue, denies weight loss, deniesweight gain, denies feeling hot, and denies feelings of cold. Eyes: The patient denies glaucoma, denies eye injury/surgery, doesnot wear glasses or contacts. Ear/Nose/Throat: The patient denies allergies, denies hayfever,denies ear infections, and denies bloody noses. Cardiovascular: The patient denies chest pain, denies heart disease,NOTES high blood pressure,denies cardiac stent, denies prior heart attack,denies irregular heart beat, denies high cholesterol, denies poorcirculation, denies heart failure, other cardiac issues, deniesclaudication, denies cold feet, denies peripheral arterial stent. Respiratory: The patient denies tuberculosis, denies pneumonia,denies frequent cough, denies pulmonary embolism, denies shortness ofbreath, and denies coughing up blood. Gastrointestinal: The patient denies difficulty swallowing, NOTESacid reflux, denies ulcers, denies vomiting, denies jaundice/hepatitis,denies gallbladder problems, denies black or tarry stools, denieshemorrhoids, denies bleeding from rectum, denies diverticulitis, NOTESconstipation, denies diarrhea, denies loss of stool control, and denieshernias. Kidney/Bladder: The patient denies kidney stones, denies urineinfections, and denies bloody urine. Skin: The patient denies a history of skin cancer, deniesbleeding/changing moles, and denies a history of skin rash. Neurologic: The patient denies a history of epilepsy/convulsions,denies headaches, denies head/spinal injuries, and denies stroke/TIA. Psychiatric: The patient denies psychiatric medications, deniesdepression, and denies voices, denies substance abuse. Endocrine: The patient denies thyroid disorders, denies diabetes,and denies hormonal problems. Hematologic: The patient denies a history of bruising, deniesbleeding, and denies anemia, denies blood clots. Infections: The patient denies a history of measles and mumps,denies rheumatic fever, and denies sexually transmitted diseases. Musculoskeletal: The patient denies back pain/injury, denies backproblems, denies sciatica, denies knee/foot trouble, denies arthritis, ordenies gout.When was patient's last Mammogram screening? unknown Last Colonoscopy: neverAmy Barbosa RNLetter TextEncounter Number: [id number] Status:Closed by GERMAINE MANZANARES MD on 05/30/17 [facility] 05-29-2017 [facility] Patient:Temi Padgett N: Height:5' 10(1.778 m)Weight:227 lb (102.967 kg)Outpatient Medications as of 06/25/17:CETIRIZINE HCL/PSEUDOEPHEDRINE (ZYRTEC-D ORAL)Docusate Sodium 100 mg tabimipramine HCl (TOFRANIL) 50 mg tabletlansoprazole (PREVACID) 15 mg capsulespironolactone (ALDACTONE) 25 mg tabletFesoterodine (TOVIAZ) 8 mg [id number] (LINZESS) 145 mcg capLACTOBACILLUS ACIDOPHILUS (PROBIOTIC ORAL)Admission/Clinic Administered Medications as of 06/25/17:lactated ringers infusionclindamycin 900 mg in D5W 50 mL (CLEOCIN)Problem List:Recurrent umbilical hernia [K42.9]Essential hypertension [I10]Urinary urgency [R39.15]Gastroesophageal reflux disease without esophagitis [K21.9]Nocturia [R35.1]Allergies:PenicillinTeta nus ToxoidDate Verified: 06/25/17Lab ValuesNo results within the last 30 days for the following basenames: K,HCTProgress Notes ([facility]):Didier Hope Surg Coord 05/29/2017 10:22 AM SignedScheduled Lap Incisional hernia in [place] 06-25-2017 [facility] Hope Surg CoordProgress Notes ([facility]Deidre Barbosa RN 05/29/2017 9:57 AM SignedREVIEW OF SYSTEMS: General: The patient denies fatigue, denies weight loss, denies weightgain, denies feeling hot, and denies feelings of cold. Eyes: The patient denies glaucoma, denies eye injury/surgery, does notwear glasses or contacts. Ear/Nose/Throat: The patient denies allergies, denies hayfever, denies earinfections, and denies bloody noses. Cardiovascular: The patient denies chest pain, denies heart disease, NOTEShigh blood pressure,denies cardiac stent, denies prior heart attack, deniesirregular heart beat, denies high cholesterol, denies poor circulation, deniesheart failure, other cardiac issues, denies claudication, denies cold feet,denies peripheral arterial stent. Respiratory: The patient denies tuberculosis, denies pneumonia, deniesfrequent cough, denies pulmonary embolism, denies shortness of breath, anddenies coughing up blood. Gastrointestinal: The patient denies difficulty swallowing, NOTES acidreflux, denies ulcers, denies vomiting, denies jaundice/hepatitis, deniesgallbladder problems, denies black or tarry stools, denies hemorrhoids, deniesbleeding from rectum, denies diverticulitis, NOTES constipation, deniesdiarrhea, denies loss of stool control, and denies hernias. Kidney/Bladder: The patient denies kidney stones, denies urine infections,and denies bloody urine. Skin: The patient denies a history of skin cancer, deniesbleeding/changing moles, and denies a history of skin rash. Neurologic: The patient denies a history of epilepsy/convulsions, deniesheadaches, denies head/spinal injuries, and denies stroke/TIA. Psychiatric: The patient denies psychiatric medications, deniesdepression, and denies voices, denies substance abuse. Endocrine: The patient denies thyroid disorders, denies diabetes, anddenies hormonal problems. Hematologic: The patient denies a history of bruising, denies bleeding,and denies anemia, denies blood clots. Infections: The patient denies a history of measles and mumps, deniesrheumatic fever, and denies sexually transmitted diseases. Musculoskeletal: The patient denies back pain/injury, denies backproblems, denies sciatica, denies knee/foot trouble, denies arthritis, or deniesgout.When was patient's last Mammogram screening? unknown Last Colonoscopy: Cristiano Manzanares MD 05/30/2017 6:11 AM SignedHISTORY AND PHYSICALRose Lottie1960REFERRING PHYSICIAN: Luis Crowder,*CHIEF COMPLAINT: Consult (umbilical hernia)HPI: Maegan is a 56 year old female with a complaint of a bulge in her priorumbilical incision. The patient notes discomfort in this area with lifting andcoughing. The symptoms have increased, over the past few months.The patient notes no symptoms of bowel obstruction and denies nausea orvomiting.The patient was seen by her primary care physician who felt the patient has ahernia. Maegan was referred for evaluation and treatment.The patient notes a that she presented to [facility] in [facility]-near [place]-in August 2016 with severe abdominal pain. She was told shelikely had a bowel obstruction. She underwent a lower midline abdominalexploratory laparotomy. The patient states she was told there was no truefindings other than severe constipationA copy of her previous operative report does indeed show that they performedexploratory laparotomy and felt the only abnormality was fecal impaction.Follow-up CT scan was obtained. This demonstrated:IMPRESSION: Limited noncontrast examination of the abdomen and pelvisNonobstructive bowel gas pattern without prominent fecal burden. ?Patulous fat-containing ventral hernia without entrapped bowel or acuteinflammatory change present. ?There is a large hiatal hernia. ?No freeair, free fluid or abscessSuspect right hepatic lobe cyst.The patient is being seen by me today at the request of Dr. Luis Crowder MDfor my opinion and advice regarding an umbilical/incisional hernia.I discussed with the patient with that she was having significant refluxsymptoms given her significant hiatal hernia. She did not seem to indicate thatshe had significant symptoms and would not consider hiatal hernia repair. Sheas returned from her travel overseas.PAST MEDICAL HISTORYDiagnosis Date- Hypertension- Small bowel obstruction (HCC) 08/2016PAST SURGICAL HISTORYProcedure Laterality Date- PAST SURGICAL HISTORY OF 08/2016 laparotomy, release of small bowel obstructionCurrent Outpatient Prescriptions:doxycycline hyclate (VIBRAMYCIN) 100 mg capsule Take 100 mg by mouth twicedaily.Docusate Sodium 100 mg tab Take 100 mg by mouth twice daily.imipramine HCl (TOFRANIL) 50 mg tablet Take 50 mg by mouth daily at bedtime.lansoprazole (PREVACID) 15 mg capsule Take 15 mg by mouth once daily.spironolactone (ALDACTONE) 25 mg tablet Take 25 mg by mouth once daily.Fesoterodine (TOVIAZ) 8 mg Tb24 Take 8 mg by mouth once daily.linaclotide (LINZESS) 145 mcg cap Take 145 mcg by mouth once daily.LACTOBACILLUS ACIDOPHILUS (PROBIOTIC ORAL) Take by mouth.Levocetirizine (XYZAL) 5 mg tablet Take 5 mg by mouth once daily.No current facility-administered medications for this visit.ALLERGIES: Penicillin; Tetanus ToxoidPERSONAL HISTORY: Social History Marital status: Spouse name: Years of education: Number of children:Social History Main Topics Smoking status: Never Smoker Alcohol use: No Drug use: NoFAMILY HISTORY:FAMILY HISTORYProblem Relation Age of Onset- Allergies Mother- Anesthesia Problems Mother- Diabetes Mother- Stroke Mother- Cancer Father colon- Stroke Father- Allergies Sister- Anesthesia Problems Sister- Diabetes Sister- Diabetes BrotherREVIEW OF SYMPTOMS: The review of systems data was entered by the nurse and reviewed by meNursing Notes:Deidre Barbosa RN 05/29/2017 9:57 AM SignedREVIEW OF SYSTEMS: General: The patient denies fatigue, denies weight loss, denies weightgain, denies feeling hot, and denies feelings of cold. Eyes: The patient denies glaucoma, denies eye injury/surgery, does notwear glasses or contacts. Ear/Nose/Throat: The patient denies allergies, denies hayfever, denies earinfections, and denies bloody noses. Cardiovascular: The patient denies chest pain, denies heart disease, NOTEShigh blood pressure,denies cardiac stent, denies prior heart attack, deniesirregular heart beat, denies high cholesterol, denies poor circulation, deniesheart failure, other cardiac issues, denies claudication, denies cold feet,denies peripheral arterial stent. Respiratory: The patient denies tuberculosis, denies pneumonia, deniesfrequent cough, denies pulmonary embolism, denies shortness of breath, anddenies coughing up blood. Gastrointestinal: The patient denies difficulty swallowing, NOTES acidreflux, denies ulcers, denies vomiting, denies jaundice/hepatitis, deniesgallbladder problems, denies black or tarry stools, denies hemorrhoids, deniesbleeding from rectum, denies diverticulitis, NOTES constipation, deniesdiarrhea, denies loss of stool control, and denies hernias. Kidney/Bladder: The patient denies kidney stones, denies urine infections,and denies bloody urine. Skin: The patient denies a history of skin cancer, deniesbleeding/changing moles, and denies a history of skin rash. Neurologic: The patient denies a history of epilepsy/convulsions, deniesheadaches, denies head/spinal injuries, and denies stroke/TIA. Psychiatric: The patient denies psychiatric medications, deniesdepression, and denies voices, denies substance abuse. Endocrine: The patient denies thyroid disorders, denies diabetes, anddenies hormonal problems. Hematologic: The patient denies a history of bruising, denies bleeding,and denies anemia, denies blood clots. Infections: The patient denies a history of measles and mumps, deniesrheumatic fever, and denies sexually transmitted diseases. Musculoskeletal: The patient denies back pain/injury, denies backproblems, denies sciatica, denies knee/foot trouble, denies arthritis, or deniesgout.When was patient's last Mammogram screening? unknown Last Colonoscopy: neverAmy Barbosa RNPHYSICAL EXAMINATION:General: The patient is 56 year old female, well nourished, well hydrated in noacute distress. The patient is oriented to time, place, and person.VITALS: Blood pressure 140/100, pulse 66, height 177.8 cm (5' 10), weight 103kg (227 lb). Body mass index is 32.57 kg/(m2).HEENT: Normal cephalic, ataumatic, pupils are equally round, sclera areanicteric, mucous membranes are moist, oropharynx is clear. Neck has no masses,asymmetry or lymphadenopathy. Thyroid is unremarkable.Respiratory: Clear to auscultation and percussion. Normal respiratoryexcursion and pattern.Cardiac: Examination is regular rate and rhythm.Abdominal exam: Soft, nontender, with no palpable masses. Nohepatosplenomegaly. A not so small based on CT scan, reducible umbilicalincisional hernia, no obvious palpable hernias below the level the umbilicus butsome erythema along the incision consistent with stretching or somewhat delayedhealingRectal exam: exam deferredExtremities: no clubbing, cyanosis or edema. No adenopathy.Other:LABORATORY VALUES: As NotedRADIOLOGIC STUDIES: As NotedAssessmentIMPRESSION: prior umbilical incisional herniaPLAN:She does not recall our discussion about evaluation and repair of her hiatalhernia. She states her symptoms are not that significant. If she wishesevaluation for her hiatal hernia, I would refer to [facility] for evaluationand repair. Otherwise...I plan is to perform a laparoscopic incisional hernia repair with mesh. Theplanned surgical procedure was discussed extensively with the patient. Therisks, benefits, anticipated outcomes and possible complications were mentioned.Maegan undersands that all hernia repair surgery has a chance of recurrence and/orchronic post operative pain. My staff has also explained the procedure inunderstandable terms and the patient was given the option to take printedmaterial concerning the planned procedure. The patient had the opportunity toask questions concerning the planned procedure. The patient freely consents tothe planned procedure.The patient will return to the office a few weeks prior to anticipated surgicalprocedure. She is also to consider her reflux symptoms and whether she wouldconsider antireflux procedure at the same time.A letter was sent to Dr. Luis Crowder MD indicating the above finding forthis patient.Diagnoses: (K43.2) Incisional hernia, without obstruction or gangrene (primaryencounter diagnosis)Anticipated CPT Code: laparoscopic incisional hernia repair - [id number] Anesthetic: GeneralPatient weight: Blood pressure 140/100, pulse 66, height 177.8 cm (5' 10),weight 103 kg (227 lb). BMI: Body mass index is 32.57 kg/(m2).Planned antibiotic: clindamycin 600mg IVPB second vp hr assessment to ORSCDs needed - YesReturn to Clinic: The patient is instructed to follow-up with me one week postoperatively. Germaine Manzanares [facility] Office Visit (GENSWS) MAEGAN PADGETT ([id number]) 1960 FDate Time Provider Department03/18/17 10:00 AM GERMAINE MANZANARES During your visit today, we recorded the following information about you:Germaine Manzanares MD 03/18/2017 7:27 PM SignedHISTORY AND PHYSICALRose Lottie1960REFERRING PHYSICIAN: Luis Crowder,*CHIEF COMPLAINT: Consult (umbilical hernia)HPI: Maegan is a 56 year old female with a complaint of a bulge in her priorumbilical incision. The patient notes discomfort in this area with lifting andcoughing. The symptoms have increased, over the past few months.The patient notes no symptoms of bowel obstruction and denies nausea orvomiting.The patient was seen by her primary care physician who felt the patient has ahernia. Maegan was referred for evaluation and treatment.The patient notes a that she presented to [facility] in [facility]-near [place]-in August 2016 with severe abdominal pain. She was told shelikely had a bowel obstruction. She underwent a lower midline abdominalrespiratory laparotomy. The patient states she was told there was no truefindings other than severe constipationA copy of her previous operative report does indeed show that they performedexploratory laparotomy and felt the only abnormality was fecal impaction.Follow-up CT scan was obtained. This demonstrated:IMPRESSION: Limited noncontrast examination of the abdomen and pelvisNonobstructive bowel gas pattern without prominent fecal burden. ?Patulous fat-containing ventral hernia without entrapped bowel or acuteinflammatory change present. ?There is a large hiatal hernia. ?No freeair, free fluid or abscessSuspect right hepatic lobe cyst.The patient is being seen by me today at the request of Dr. Luis Crowder MDfor my opinion and advice regarding an umbilical/incisional hernia.I discussed with the patient with that she was having significant refluxsymptoms given her significant hiatal hernia. She did not seem to indicatethat she had significant symptoms and would not consider hiatal hernia repair.She is planning to travel [place] in the next month and then has an additionalvacation coming up and would like to hold off surgery until May later ifpossiblePAST MEDICAL HISTORYDiagnosis Date- Hypertension- Small bowel obstruction (HCC) 08/2016PAST SURGICAL RVHILJR36/2016: PAST SURGICAL HISTORY OF Comment: laparotomy, release of small bowel obstructionCurrent Outpatient Prescriptions:Docusate Sodium 100 mg tab Take 100 mg by mouth twice daily.imipramine HCl (TOFRANIL) 50 mg tablet Take 50 mg by mouth daily at bedtime.lansoprazole (PREVACID) 15 mg capsule Take 15 mg by mouth once daily.spironolactone (ALDACTONE) 25 mg tablet Take 25 mg by mouth once daily.Fesoterodine (TOVIAZ) 8 mg Tb24 Take 8 mg by mouth once daily.linaclotide (LINZESS) 145 mcg cap Take 145 mcg by mouth once daily.LACTOBACILLUS ACIDOPHILUS (PROBIOTIC ORAL) Take by mouth.Levocetirizine (XYZAL) 5 mg tablet Take 5 mg by mouth once daily.No current facility-administered medications for this visit.ALLERGIES: Penicillin; Tetanus ToxoidPERSONAL HISTORY: Social History Marital status: Spouse name: Years of education: Number of children:Social History Main Topics Smoking status: Never Smoker Alcohol use: No Drug use: NoFAMILY HISTORY:FAMILY HISTORY Allergies Mother Anesthesia Problems Mother Diabetes Mother Stroke Mother Cancer Father Comment: colon Stroke Father Allergies Sister Anesthesia Problems Sister Diabetes Sister Diabetes BrotherREVIEW OF SYMPTOMS: The review of systems data was entered by the nurse and reviewed by Nabil are no exam notes on file for this visit.PHYSICAL EXAMINATION:General: The patient is 56 year old female, well nourished, well hydrated inno acute distress. The patient is oriented to time, place, and person.VITALS: There were no vitals taken for this visit. There is no height or weighton file to calculate BMI.HEENT: Normal cephalic, ataumatic, pupils are equally round, sclera areanicteric, mucous membranes are moist, oropharynx is clear. Neck has nomasses, asymmetry or lymphadenopathy. Thyroid is unremarkable.Respiratory: Clear to auscultation and percussion. Normal respiratoryexcursion and pattern.Cardiac: Examination is regular rate and rhythm.Abdominal exam: Soft, nontender, with no palpable masses. Nohepatosplenomegaly. A not so small based on CT scan, reducible umbilicalincisional hernia, no obvious palpable hernias below the level the umbilicusbut some erythema along the incision consistent with stretching or somewhatdelayed healingRectal exam: exam deferredExtremities: no clubbing, cyanosis or edema. No adenopathy.Other:LABORATORY VALUES: As NotedRADIOLOGIC STUDIES: As NotedAssessmentIMPRESSION: prior umbilical incisional herniaPLAN:I plan is to perform a laparoscopic incisional hernia repair with mesh. Theplanned surgical procedure was discussed extensively with the patient. Therisks, benefits, anticipated outcomes and possible complications werementioned. Maegan frankands that all hernia repair surgery has a chance ofrecurrence and/or chronic post operative pain. My staff has also explained theprocedure in understandable terms and the patient was given the option to takeprinted material concerning the planned procedure. The patient had theopportunity to ask questions concerning the planned procedure. The patientfreely consents to the planned procedure.The patient will return to the office a few weeks prior to anticipated surgicalprocedure. She is also to consider her reflux symptoms and whether she wouldconsider antireflux procedure at the same time.A letter was sent to Dr. Luis Crowder MD indicating the above finding forthis patient.Diagnoses: (K43.2) Incisional hernia, without obstruction or gangrene (primaryencounter diagnosis)Anticipated CPT Code: laparoscopic incisional hernia repair - [id number] Anesthetic: GeneralPatient weight: There were no vitals taken for this visit. BMI: There isno height or weight on file to calculate BMI.Planned antibiotic: clindamycin 600mg IVPB second vp hr assessment to ORSCDs needed - YesReturn to Clinic: The patient is instructed to follow-up with me in 2 weeksprior to her anticipated surgical case. ___Germaine Manzanares, MDReferring Provider: LUIS CROWDER [[id number]]Allergies As of Date: 03/18/2017 Noted Allergy ReactionPENICILLIN 03/06/2017 16 - UnknownTETANUS TOXOID 03/06/2017 7 - SwellingDate Reviewed: 03/18/2017Reviewed by: Liat Gallardo LPN - Fully AssessedReason for Visit: FU CT scan [Other]Primary Visit Diagnosis:Incisional hernia, without obstruction or gangrene [K43.2]Prescriptions as of 03/18/2017 Sig: DOCUSATE SODIUM 100 MG TABLET Take 100 mg by mouth twice da* IMIPRAMINE 50 MG TABLET Take 50 mg by mouth daily at * LANSOPRAZOLE 15 MG CAPSULE,DE* Take 15 mg by mouth once jason* SPIRONOLACTONE 25 MG TABLET Take 25 mg by mouth once jason* FESOTERODINE ER 8 MG TABLET,E* Take 8 mg by mouth once daily. LINACLOTIDE 145 MCG CAPSULE Take 145 mcg by mouth once da* PROBIOTIC ORAL Take by mouth. LEVOCETIRIZINE 5 MG TABLET Take 5 mg by mouth once daily.Problem List As Of Date: 03/18/2017(None)Letter TextDepartment of General Edcnunm[address] [place], [place] [address]Izqfv: Raleeann Crowder MD[address] [place] [id number]: [phone]: [phone] Luis Crowder MD :Thank you for allowing me to participate in the care of your patient, Otto.I saw Maegan on 03/18/2017. Enclosed is a copy of my office dictation for Paolo includes my evaluation and recommendations.CT scan demonstrated a fat containing hernia and a significant hiatal hernia.She tells me she really doesn't have significant reflux symptoms. She isalso planning trips out of the country and would like to delay surgicalrepair until at least May. I told her I thought this was reasonable.Again, thank you for the referral of Maegan Padgett. If I can be of anyassistance to you in the future, please don't hesitate to call.Sincerely yours,Germaine Manzanares MD, FACSHISTORY AND PHYSICALRose Lottie1960REFERRING PHYSICIAN: Luis Crowder,*CHIEF COMPLAINT: Consult (umbilical hernia)HPI: Maegan is a 56 year old female with a complaint of a bulge in her priorumbilical incision. The patient notes discomfort in this area with liftingand coughing. The symptoms have increased, over the past few months.The patient notes no symptoms of bowel obstruction and denies nausea orvomiting.The patient was seen by her primary care physician who felt the patient hasa hernia. Maegan was referred for evaluation and treatment.The patient notes a that she presented to [facility] in [facility]-near [place]-in August 2016 with severe abdominal pain. She was toldshe likely had a bowel obstruction. She underwent a lower midline abdominalrespiratory laparotomy. The patient states she was told there was no truefindings other than severe constipationA copy of her previous operative report does indeed show that they performedexploratory laparotomy and felt the only abnormality was fecal impaction.Follow-up CT scan was obtained. This demonstrated:IMPRESSION: Limited noncontrast examination of the abdomen and pelvisNonobstructive bowel gas pattern without prominent fecal burden. ?Patulous fat-containing ventral hernia without entrapped bowel or acuteinflammatory change present. ?There is a large hiatal hernia. ?No freeair, free fluid or abscessSuspect right hepatic lobe cyst.The patient is being seen by me today at the request of Dr. Luis Crowder MD for my opinion and advice regarding an umbilical/incisional hernia.I discussed with the patient with that she was having significant refluxsymptoms given her significant hiatal hernia. She did not seem to indicatethat she had significant symptoms and would not consider hiatal herniarepair. She is planning to travel overseas in the next month and then has anadditional vacation coming up and would like to hold off surgery untilSeptember later if possiblePAST MEDICAL HISTORYDiagnosis Date- Hypertension- Small bowel obstruction (HCC) 08/2016PAST SURGICAL QUKQEDD49/2016: PAST SURGICAL HISTORY OF Comment: laparotomy, release of small bowel obstructionCurrent Outpatient Prescriptions:Docusate Sodium 100 mg tab Take 100 mg by mouth twice daily.imipramine HCl (TOFRANIL) 50 mg tablet Take 50 mg by mouth daily atbedtime.lansoprazole (PREVACID) 15 mg capsule Take 15 mg by mouth once daily.spironolactone (ALDACTONE) 25 mg tablet Take 25 mg by mouth once daily.Fesoterodine (TOVIAZ) 8 mg Tb24 Take 8 mg by mouth once daily.linaclotide (LINZESS) 145 mcg cap Take 145 mcg by mouth once daily.LACTOBACILLUS ACIDOPHILUS (PROBIOTIC ORAL) Take by mouth.Levocetirizine (XYZAL) 5 mg tablet Take 5 mg by mouth once daily.No current facility-administered medications for this visit.ALLERGIES: Penicillin; Tetanus ToxoidPERSONAL HISTORY: Social History Marital status: Spouse name: Years of education: Number of children:Social History Main Topics Smoking status: Never Smoker Alcohol use: No Drug use: NoFAMILY HISTORY:FAMILY HISTORY Allergies Mother Anesthesia Problems Mother Diabetes Mother Stroke Mother Cancer Father Comment: colon Stroke Father Allergies Sister Anesthesia Problems Sister Diabetes Sister Diabetes BrotherREVIEW OF SYMPTOMS: The review of systems data was entered by the nurse and reviewed by meThere are no exam notes on file for this visit.PHYSICAL EXAMINATION:General: The patient is 56 year old female, well nourished, well hydrated inno acute distress. The patient is oriented to time, place, and person.VITALS: There were no vitals taken for this visit. There is no height orweight on file to calculate BMI.HEENT: Normal cephalic, ataumatic, pupils are equally round, sclera areanicteric, mucous membranes are moist, oropharynx is clear. Neck has nomasses, asymmetry or lymphadenopathy. Thyroid is unremarkable.Respiratory: Clear to auscultation and percussion. Normal respiratoryexcursion and pattern.Cardiac: Examination is regular rate and rhythm.Abdominal exam: Soft, nontender, with no palpable masses. Nohepatosplenomegaly. A not so small based on CT scan, reducible umbilicalincisional hernia, no obvious palpable hernias below the level the umbilicusbut some erythema along the incision consistent with stretching or somewhatdelayed healingRectal exam: exam deferredExtremities: no clubbing, cyanosis or edema. No adenopathy.Other:LABORATORY VALUES: As NotedRADIOLOGIC STUDIES: As NotedAssessmentIMPRESSION: prior umbilical incisional herniaPLAN:I plan is to perform a laparoscopic incisional hernia repair with mesh. Theplanned surgical procedure was discussed extensively with the patient. Therisks, benefits, anticipated outcomes and possible complications werementioned. Maegan undersands that all hernia repair surgery has a chance ofrecurrence and/or chronic post operative pain. My staff has also explainedthe procedure in understandable terms and the patient was given the option totake printed material concerning the planned procedure. The patient had theopportunity to ask questions concerning the planned procedure. The patientfreely consents to the planned procedure.The patient will return to the office a few weeks prior to anticipatedsurgical procedure. She is also to consider her reflux symptoms and whethershe would consider antireflux procedure at the same time.A letter was sent to Dr. Luis Crowder MD indicating the above finding forthis patient.Diagnoses: (K43.2) Incisional hernia, without obstruction or gangrene(primary encounter diagnosis)Anticipated CPT Code: laparoscopic incisional hernia repair - [id number] Anesthetic: GeneralPatient weight: There were no vitals taken for this visit. BMI: There isno height or weight on file to calculate BMI.Planned antibiotic: clindamycin 600mg IVPB second vp hr assessment to ORSCDs needed - YesReturn to Clinic: The patient is instructed to follow-up with me in 2 weeksprior to her anticipated surgical case. ___Germaine Manzanares MDEncounter Number: [id number] Status:Closed by GERMAINE MANZANARES MD on 03/18/17 Normal [facility] PROGRESSon 03-18-2017 PROGRESS HNO ID: [id number] thor: Germaine Florianervice: (none)Author Type: PhysicianType: Progress NotesFiled: 03/18/2017 7:27 PMNote Text:HISTORY AND PHYSICALRose Lewis1960REFERRING PHYSICIAN: Luis Crowder,*CHIEF COMPLAINT: Consult (umbilical hernia)HPI: Maegan is a 56 year old female with a complaint of a bulge in herprior umbilical incision. The patient notes discomfort in this area withlifting and coughing. The symptoms have increased, over the past fewmonths.The patient notes no symptoms of bowel obstruction and denies nausea orvomiting.The patient was seen by her primary care physician who felt the patienthas a hernia. Maegan was referred for evaluation and treatment.The patient notes a that she presented to [facility] in [facility]-near [place]-in August 2016 with severe abdominal pain. She wastold she likely had a bowel obstruction. She underwent a lower midlineabdominal respiratory laparotomy. The patient states she was told therewas no true findings other than severe constipationA copy of her previous operative report does indeed show that theyperformed exploratory laparotomy and felt the only abnormality was fecalimpaction. Follow-up CT scan was obtained. This demonstrated:IMPRESSION: Limited noncontrast examination of the abdomen and pelvisNonobstructive bowel gas pattern without prominent fecal burden. ?Patulous fat-containing ventral hernia without entrapped bowel or acuteinflammatory change present. ?There is a large hiatal hernia. ?No freeair, free fluid or abscessSuspect right hepatic lobe cyst.The patient is being seen by me today at the request of Dr. Luis Art MD for my opinion and advice regarding an umbilical/incisionalhernia.I discussed with the patient with that she was having significant refluxsymptoms given her significant hiatal hernia. She did not seem toindicate that she had significant symptoms and would not consider hiatalhernia repair. She is planning to travel overseas in the next month andthen has an additional vacation coming up and would like to hold offsurgery until May later if possiblePAST MEDICAL HISTORYDiagnosis Date- Hypertension- Small bowel obstruction (HCC) 08/2016PAST SURGICAL UPROUFD21/2016: PAST SURGICAL HISTORY OF Comment: laparotomy, release of small bowel obstructionCurrent Outpatient Prescriptions:Docusate Sodium 100 mg tab Take 100 mg by mouth twice daily.imipramine HCl (TOFRANIL) 50 mg tablet Take 50 mg by mouth daily atbedtime.lansoprazole (PREVACID) 15 mg capsule Take 15 mg by mouth once daily.spironolactone (ALDACTONE) 25 mg tablet Take 25 mg by mouth once daily.Fesoterodine (TOVIAZ) 8 mg Tb24 Take 8 mg by mouth once daily.linaclotide (LINZESS) 145 mcg cap Take 145 mcg by mouth once daily.LACTOBACILLUS ACIDOPHILUS (PROBIOTIC ORAL) Take by mouth.Levocetirizine (XYZAL) 5 mg tablet Take 5 mg by mouth once daily.No current facility-administered medications for this visit.ALLERGIES: Penicillin; Tetanus ToxoidPERSONAL HISTORY: Social History Marital status: Spouse name: Years of education: Number of children:Social History Main Topics Smoking status: Never Smoker Alcohol use: No Drug use: NoFAMILY HISTORY:FAMILY HISTORY Allergies Mother Anesthesia Problems Mother Diabetes Mother Stroke Mother Cancer Father Comment: colon Stroke Father Allergies Sister Anesthesia Problems Sister Diabetes Sister Diabetes BrotherREVIEW OF SYMPTOMS: The review of systems data was entered by the nurse and reviewed by meThere are no exam notes on file for this visit.PHYSICAL EXAMINATION:General: The patient is 56 year old female, well nourished, well hydratedin no acute distress. The patient is oriented to time, place, and person.VITALS: There were no vitals taken for this visit. There is no height orweight on file to calculate BMI.HEENT: Normal cephalic, ataumatic, pupils are equally round, sclera areanicteric, mucous membranes are moist, oropharynx is clear. Neck has nomasses, asymmetry or lymphadenopathy. Thyroid is unremarkable.Respiratory: Clear to auscultation and percussion. Normal respiratoryexcursion and pattern.Cardiac: Examination is regular rate and rhythm.Abdominal exam: Soft, nontender, with no palpable masses. Nohepatosplenomegaly. A not so small based on CT scan, reducible umbilicalincisional hernia, no obvious palpable hernias below the level theumbilicus but some erythema along the incision consistent with stretchingor somewhat delayed healingRectal exam: exam deferredExtremities: no clubbing, cyanosis or edema. No adenopathy.Other:LABORATORY VALUES: As NotedRADIOLOGIC STUDIES: As NotedAssessmentIMPRESSION: prior umbilical incisional herniaPLAN:I plan is to perform a laparoscopic incisional hernia repair with mesh.The planned surgical procedure was discussed extensively with the patient. The risks, benefits, anticipated outcomes and possible complications werementioned. Maegan frankands that all hernia repair surgery has a chance ofrecurrence and/or chronic post operative pain. My staff has alsoexplained the procedure in understandable terms and the patient was giventhe option to take printed material concerning the planned procedure. Thepatient had the opportunity to ask questions concerning the plannedprocedure. The patient freely consents to the planned procedure.The patient will return to the office a few weeks prior to anticipatedsurgical procedure. She is also to consider her reflux symptoms andwhether she would consider antireflux procedure at the same time.A letter was sent to Dr. Luis Crowder MD indicating the above findingfor this patient.Diagnoses: (K43.2) Incisional hernia, without obstruction or gangrene(primary encounter diagnosis)Anticipated CPT Code: laparoscopic incisional hernia repair - 16276-142Goynddnfevl Anesthetic: GeneralPatient weight: There were no vitals taken for this visit. BMI: Thereis no height or weight on file to calculate BMI.Planned antibiotic: clindamycin 600mg IVPB second vp hr assessment to ORSCDs needed - YesReturn to Clinic: The patient is instructed to follow-up with me in 2weeks prior to her anticipated surgical case. ___Germaine Manzanares MD [facility] [place] Culture, urine Bacteria identified Cx Nom (U) Citrobacter freundii [facility] Work Phone: Vital Signs Date Time Vital Sign Value Performing Clinician Faci lity 01-25-2025 17:08-0400 Body temperature 97.4 [degF] Dr. Janine Choudhary DO Work Phone: [facility] 01-25-2025 17:08-0400 Diastolic blood pressure 80 mm[Hg] Dr. Janine Choudhary DO Work Phone: [facility] 01-25-2025 17:08-0400 Heart rate 82 /min Dr. Janine Choudhary DO Work Phone: [facility] 01-25-2025 17:08-0400 Respiratory rate 16 /min Dr. Janine Choudhary DO Work Phone: [facility] 01-25-2025 17:08-0400 SaO2% (BldA) [Mass fraction] 100 % Dr. Janine Choudhary DO Work Phone: [facility] 01-25-2025 17:08-0400 Systolic blood pressure 133 mm[Hg] Dr. Janine Choudhary DO Work Phone: [facility] 01-25-2025 16:04-0400 Body height 177.[address] Janine Choudhary DO Work Phone: [facility] 01-25-2025 16:04-0400 Body mass index (BMI) [Ratio] 24.7 kg/m2 Dr. Janine Choudhary DO Work Phone: [facility] 01-25-2025 16:04-0400 Body weight 78.[address] Janine Choudhary DO Work Phone: [facility] 01-20-2024 [id number] Body height 173.99 cm [facility] 01-20-2024 10:55-0400 Body weight 77.47 kg [facility] Encounters Encounter Date Encounter Type Care Provider Facility Start: 02-23-2025 End: 02-23-[address] Janine Choudhary DO Work Phone: [facility] Work Phone: Start: 02-23-2025 End: 02-23-[address] Yuliet Brown MD -Physical Therapy Work Phone: Start: 01-25-2025 End: 01-25-2025 Emergency department patient visit Dr. Kp Trevino MD -Emergency Department Work Phone: Start: 12-31-2024 End: 12-31-[address] Janine Choudhary DO Work Phone: [facility] Work Phone: Start: 12-31-2024 End: 12-31-[address] [facility] Start: 12-31-2024 End: 12-31-2024 ambulatory Janine Choudhary Facility:[facility] Start: 12-27-[address] Yuliet banegas MD -Physical Therapy Work Phone: Start: 07-22-2024 ambulatory Janine Choudhary Facility: [facility] Start: 05-19-2024 End: 05-22-2024 ambulatory Janine [facility] Facility:[facility] Start: 04-14-2024 End: 04-14-2024 ambulatory [facility] Facility:[facility] Start: 03-31-2024 End: 03-31-2024 ambulatory Janine Mayo Facility:[facility] Start: 03-30-2024 End: 04-21-2024 ambulatory Janine Mayo Facility:[facility] Start: 03-01-2024 End: 03-21-2024 ambulatory [facility] Facility:[facility] Start: 01-20-2024 End: 01-20-2024 ambulatory [facility] Work Phone: Start: 01-20-2024 End: 01-20-2024 Discharged Recurring [facility]-Nutritional Services Work Phone: Start: 10-24-2023 End: 10-24-2023 Patient encounter procedure [facility] Work Phone: Start: 03-31-2023 End: 03-31-2023 ambulatory [facility] Work Phone: Start: 03-31-2023 End: 03-31-2023 Patient encounter procedure [facility]-Outpatient Breast Imaging Work Phone: Start: 03-10-2023 End: 03-10-2023 ambulatory [facility] Work Phone: Start: 03-10-2023 End: 03-10-2023 Patient encounter procedure [facility] Start: 07-19-2022 End: 07-19-2022 ambulatory [facility] Work Phone: Start: 07-19-2022 End: 07-19-2022 Patient encounter procedure [facility]-Radiology, [facility] Start: 07-19-2022 End: 07-19-2022 ambulatory [facility] Work Phone: Start: 07-19-2022 End: 07-19-2022 Patient encounter procedure [facility] Start: 07-18-2022 End: 07-18-2022 ambulatory [facility] Work Phone: Start: 07-18-2022 End: 07-18-2022 Patient encounter procedure [facility] Start: 03-28-2022 End: 03-28-2022 Patient encounter procedure [facility]-Outpatient Breast Imaging Start: 03-14-2022 End: 03-14-2022 Patient encounter procedure [facility]-Laboratory, Specimen Start: 03-12-2022 End: 03-12-2022 Patient encounter procedure [facility]-Laboratory, Specimen Start: 07-03-2017 End: 07-08-2017 Ambulatory BETSY ELLER ([place]) [facility] Start: 06-25-2017 End: 06-25-2017 Ambulatory GERMAINE Taylor [facility] Start: 06-20-2017 End: 06-20-2017 Ambulatory GERMAINE Taylor [facility] Start: 05-29-2017 End: 05-29-2017 Ambulatory GERMAINE Taylor [facility] Start: 03-18-2017 End: 03-18-2017 Ambulatory GERMAINE Taylor [facility] Procedures Date Procedure Procedure Detail Performing Clinician Start: 01-25-2025 CT of head without contrast Dr. Janine Choudhary DO Work Phone: Start: 12-31-2024 X-ray of knee, four or more views Dr[address] Janine Choudhary DO Work Phone: Start: 03-31-2023 Screening mammography Start: 07-19-2022 Radiologic examinati on, osseous survey, complete Start: 07-18-2022 Radiography of ankle Start: 07-18-2022 X-ray of both feet Start: 03-28-2022 Screening mammography History of decompres mariam of median nerve History of carpal tunnel release Urine culture Plan of Treatment Date Care Activity Detail Author Start: 01-25-2025 [facility] Start: 07-19-2022 Serum immunofixation [facility] Work Phone: Start: 07-19-2022 Urine protein electrophoresis [facility] Work Phone: Path report.final Dx Spec [facility] Work Phone: Patient Education ED Mechanical Fall ED Head Injury (Adult) ED Hematoma [facility] Work Phone: Patient referral [facility] Work Phone: Payers Date Payer Category Payer Unknown [id number] 2024 Unknown [id number] 2024 Self-pay [id number] 2024 Unknown [id number] Private Health Insurance [id number] Unknown [id number] 2.16.8 [id number] Unknown [id number] 2.16.8 [id number] Unknown [id number] 2.16.8 [id number] Unknown [id number] 2.16.8 [id number] Unknown [id number] 2.16.8 [id number] Unknown [id number] 2.16.8 [id number] Unknown [id number] 2.16.8 [id number] Unknown [id number] 2.16.8 [id number] Unknown [id number] 2.16.8 [id number] Social History Date Type Detail Facility Start: 06-19-2021 Tobacco smoking stat us ORIS Unknown if ever smoked [facility] Start: 1960 Sex Assigned At Female [facility] Start: 08-04-2024 End: 01-25-2025 Tobacco smoking status NHIS Never smoked tobacco (finding) [facility] Start: 01-06-2025 Sex Female (finding) [facility] Discharge summary 02-23-2025 Note Date & Type Note Facility 02-23-2025 Discharge summary Note Date/Time February 23, 2025 2:34pm [facility] Physical Therapy [facility] [place] [address] / REHABILITATION SERVICES DISCHARGE SUMMARY MR#: [id number] Acct: [id number] Name: MAEGAN PADGETT Rep #: [id number] : 1960 64 From: Maribell Infante PT, Cert. MDT Referring Dr.: Dr. Yuliet Brown MD Status: REG RCR Insurance: [facility] [employer] Discharge Summary D/C summary: It has been my pleasure to treat MAEGAN PADGETT referred by Dr. Yuliet Brown MD, with the diagnosis of HESITANCY OF VOIDING, HIGH TENSION PELVIC FLOOR DYSFUNCTION and Dr. Choudhary for Rt. Knee pain for a total of 14 visit(s). Discharge Date: 02/23/25 Please see the following information for a summary of their discharge status. Subjective Subjective: PATIENT STATES I FEEL A LOT BETTER THAN I DID. PATIENT REPORTS 50%R KNEE IMPROVEMENT WITH PHYSICAL THERAPY THIS EPISODE OF CARE. SHE REPORTS INTERMITTENT PAIN RANGING 0-6/10. INCREASED R KNEE PAIN WITH DEEP CLEANING HER HOUSE - WASHING THE REED AND MOVING BEDROOM FURNITURE. SHE REPORTS SHE ISN'T DOING HER HEP MUCH SHE SHOULD. SHE REPORTS SHE HAS A [employer] MEMBERSHIP NOW AND PLANS TO RENEW IT SO SHE CAN CONTINUE TO USE THE POOL INDEP'LY BECAUSE IT IS HELPING SO MUCH. SHE IS REQUESTING TO BE D/C'D AT THIS TIME DUE TO LIMITED INSURANCE VISITS PER YEAR. Pain LOWER LEGS/FEET: Pain Intensity (Out of 10): 4 SPINE: Pain Intensity (Out of 10): 3 THIGHS: Pain Intensity (Out of 10): 4 R knee: Pain Intensity (Out of 10): 0 L knee: Pain Intensity (Out of 10): 4 Overall Improvement % Improvement: 50 Objective Objective/Function: PATIENT WAS SEEN TODAY FOR RE-ASSESSMENT OF PROGRESS TOWARD THE SET PT GOALS (FOR HER KNEE ASSESSMENT 01/12/25 WHEN SHE PRESENTED WITH A NEW ORDER FOR HER KNEE AND ASKED TO BE DISCHARGED FOR HER PELVIC FLOOR) AND THE NEEDFOR FURTHER PHYSICAL THERAPY VS READINESS FOR DISCHARGE. THIS PATIENT HAS MADE GREAT PROGRESS WITH PT SO FAR AND IS A GOOD CANDIDATE TO CONTINUE PT BASED ON PROGRESS MADE AND ROOM FOR FURTHER IMPROVEMENT. SHE WOULD HOWEVER LIKE TO BE DISCHARGED AT THIS TIME. SHE VERBALIZED A GOOD UNDERSTANDING OF INSTRUCTIONS GIVEN THIS DATE FOR RECOMMENDED PCP FOLLOW UP IF SHE DOES NOT CONTINUE TO IMPROVE WITH EX'S GIVEN. UPON EXAM TODAY: THIS PATIENT AMBULATES INDEP'LY INTO PT TODAY WITHOUT ANY AD'S OR GROSS DEVIATIONS NOTED EXCEPT GENERALLY FLEXED POSTURE. Sensory deficit: ANDREA LE LIGHT TOUCH SENSATION IS GROSSLY INTACT AND SYMMETRICAL. ROM deficit: R KNEE ROM IN SUPINE IS 2-0-114 Degrees WITH C/O MILD ERP FLEX ANDEXT. ANDREA CALF TIGHTNESS. Motor deficit: R HIP 4/5, KNEE 4/5, ANKLE 5/5. L HIP 5/5, KNEE 5/5, ANKLE 5/5. Dural Signs: NEGATIVE ANDREA LE'S. Lumbar mvmt loss: flex - MIN ext - JUAN PABLO R SG - JUAN PABLO L SG - MOD PATIENT DENIES PAIN WITH LUMBAR ROM TESTING TODAY. Core strength: FAIR 30 STS = 7 WITH HANDS ON KNEES. TUG TEST TIME: 9.36 SEC INDEP WITHOUT AD OR DEVIATION. Palpation: NO ACUTE TENDERNESS OF LOW BACK OR R LE WITH LIGHT PALPATION TODAY. Goals Goal 1:: PATIENT WILL HAVE NORMALIZE VOIDING FREQUENCEY TO EVERY 2.5 TO 3.5 HOURS WITHOUT DIFFICULTY INITIATING URINE STREAM. Goal 2:: PATIENT WILL DEVELOP HEALTHY FLUID INTAKE HABITS WITH FLUID INTAKE OF ?BODY WEIGHT IN OUNCES PER DAY AND 2/3 BEING WATER. Goal 3:: PATIENT WILL HAVE DECREASE URINARY LEAKAGE EPISODES TO ONE OR LESS PER WEEK NEW GOAL: PATIENT WILL BE ABLE TO PERFORM 8 STS IN 30 SEC WITHOUT UE ASSIST TO DEMONSTRATEIMPROVED LE FUNCTIONAL STRENGTH. Goal Progress: Progressing Goal 4:: PATIENT WILL SUCCESSFULLY DELAY VOIDING LONG NEEDED WHEN URGENCY OCCURS TO SUCCESSFULLY MAKE IT TO THE BATHROOM. NEW GOAL: PATIENT WILL HAVE NORMALIZED GAIT AND TUG TIME OF 10 SEC OR LESS TO DEMONSTRATEDIMPROVED GAIT STABILITY. Goal Progress: Goal Met Goal 5:: PATIENT WILL APPROPRIATELY MANAGE CHANGES IN INTRAABDOMINAL PRESSURE WITH APPROPRIATE PELVIC FLOOR MUSCLE ACTIVATION AND BREATHING TECHNIQUES. NEW GOAL: PATIENT WILL HAVE INCREASED R KNEE ROM TO 5-0-120 DEG TO IMPROVE FUNCTION. Goal Progress: Progressing Goal 6:: PATIENT WILL BE INDEP WITH A HEP/HOME INSTRUCTIONS FOR CONTINUED IMPROVEMENT ONCE FORMAL PHYSICAL THERAPY CONCLUDES. NEW GOAL: DECREASE R LE PAIN BY AT LEAST 50% TO EASE ADL'S. Goal Progress: Progressing Plan Plan: D/C TO INDEP EX PER PATIENT REQUEST. D/C Information d/c sentence: If there are questions or concerns regarding this patient's physical therapy, please feel free to call me at [phone]. Thank you for the referral of this patient. Sincerely, Maribell Infante PT, Cert MDT Balance/Gait/Functional tests Balance/Special Test Scores Lower Extremity Functional Score: 58 Improvement % Improvement: 50 <Electronically signed by Nick Ye PT. MDT> 02/23/25 1434 CC: Dr. Yuliet Brown MD; Dr. Janine Choudhary DO ~ NICOLE Signed [facility] Work Phone: Discharge summary 02-23-2025 Note Date & Type Note Facility 02-23-2025 Discharge summary [facility] Radiology Diagnostic study note 12-31-2024 Note Date & Type Note Facility 12-31-2024 Radiology Diagnostic study note [facility] Imaging Services [address] [place], [place] [id number] Knee 4 or More Views MR#: [id number] Acct: [id number] Name: MAEGAN PADGETT Rep #: [id number] : 1960 F 64 From: Melina Gallegos MD PCP: Dr. Janine Choudhary DO Status: REG CLI Study:Knee 4 or More Views Date of Exam: 12/31/24 Exam# [id number] Ordering Dr: Janine Choudhary DO EXAM: XR Right Knee Complete, 4 or More Views CLINICAL INDICATION: PAIN TECHNIQUE: Four or more views of the right knee. COMPARISON: No relevant prior studies available. FINDINGS: BONES/JOINTS: Mild tricompartmental degenerative changes of the knee joint. Noacute fracture. No dislocation. SOFT TISSUES: Unremarkable. RAD/Knee 4 or More Views IMPRESSION: Degenerative changes as above. Reading [facility] CC: Dr. Janine Choudhary DO ~ Procurement Agent: Signed [facility] Clinical Note 03-14-2022 Note Date & Type Note Facility 03-14-2022 Note [facility] Work Phone: Pap Smear Specimen Adequacy March 14, 2022 2:00pm Comment . Satisfactory for evaluation. Endocervical and/or squamous metaplasticcells (endocervical component) are present. Comment on above: Satisfactory for ingrid luation. Endocervical and/or squamous metaplasticcells (endocervical component) are present. Evaluation note Note Date & Type Note Facility Evaluation note No assessment information availa ble [facility] Work Phone: Reason for referral (narrative) Note Date & Type Note Facility Reason for referral (narrative) No reason for referral information available [facility] Work Phone: Summary Purpose Family History No Family History Records Found Relationship Condition Age at Onset Recorded Date/T briseida mother Anemia Unknown Complication of anesthesia Unknown Asthma Unknown Arthritis Unknown History of blood transfusion Unknown Depression Unknown Diabetes mellitus Unknown Cerebrovascular accident (CVA) Unknown sister Complication of anesthesia Unknown Mast cell activation syndrome Unknown Severe allergy Unknown grandmother Depression Unknown Myocardial infarction Unknown Cardiac disease Unknown brother Diabetes mellitus Unknown father Malignant neoplasm of colon Unknown Advance Directives No Advanced Directives Records Found Advance Directive Response Recorded Date/ Time Living Will No July 17 5:15pm Power of Combine Mechanic No July 17, 2019 5:15pm Advance Directive Response Recorded Date/ Time Do you have a Healthcare Power of Combine Mechanic? Yes January 25, 2025 4:31pm Name of Medical Power of Combine Mechanic Riley Padgett January 25, 2025 4:31pm Chief Complaint and Reason for Visit Chief Complaint SCREENING Chief Complaint SCREENING foot and ankle pain Disorder of bone, unspecified Chief Complaint DIET COUNS & SURV Chief Complaint Admit Date HESITANCY OF VOIDING. RX HERE RE RT KN P AIN/RX December 27, 2024 3:00pm RIGHT KNEE PAIN December 31, 2024 2:0 3pm Chief Complaint Admit Date RIGHT KNEE PAIN December 31, 2024 2:0 3pm fall January 25, 2025 4:03pm HESITANCY OF VOIDING. RX HERE RE RT KN P AIN/RX February 23, 2025 1:00pm Additional Source Comments INFORMATION SOURCE (unrecogn ized section and content) DATE CREATED AUTHOR 03/17/2018 [facility] DATE CREATED AUTHOR AUTHOR'S ORGANIZ ATION 03/18/2018 [facility] DATE CREATED AUTHOR AUTHOR'S ORGANIZ ATION 03/01/2025 [facility] Goals (unrecognized section and content) Goals may be documented in a n alternate sectionGoals may be documented in an alternate sectionGoals may be documented in an alternate sectionGoals may be documented in an alternate sectionGoals may be documented in an alternate sectionGoals may be documented in an alternate sectionGoals may be documented in an alternate sectionGoals may be documented in an alternate sectionGoals may be documented in an alternate sectionGoals may be documented in an alternate sectionGoals may be documented in an alternate section Care Teams (unrecognized sec tion and content) Team Status: Active Member Role Status Dates Dr. Janine Choudhary DO Primary Care Provider Active Team Status: Inactive Member Role Status Dates Dr. Janine Choudhary DO Primary Care Provider Active Start: December 31, 2024 End: December 31, 2024 Dr. Janine Choudhary DO Attending Provider Active Start: December 31, 2024 End: December 31, 2024 Dr. Janine Choudhary DO Referring Provider Active Start: December 31, 2024 End: December 31, 2024 Team Status: Inactive Member Role Status Dates Dr. Janine Choudhary DO Primary Care Provider Active Start: January 25, 2025 End: January 25, 2025 Kp Trevino MD Attending Provider Active Star t: January 25, 2025 End: January 25, 2025 Kp Trevino MD Emergency Provider Active Star t: January 25, 2025 End: January 25, 2025 Team Status: Inactive Member Role Status Dates Dr. Janine Choudhary DO Primary Care Provider Active Start: February 23, 2025 End: February 23, 2025 Dr. Yuliet Brown MD Attending Provider Active Start: February 23, 2025 End: February 23, 2025 Dr. Yuliet Brown MD Referring Provider Active Start: February 23, 2025 End: February 23, 2025 Team Status: Active Member Role Status Dates Dr. Janine Choudhary DO Family Provider Active Dr. Janine Choudhary DO Primary Care Provider Active Team Status: Inactive Member Role Status Dates Dr. Janine Choudhary DO Primary Care Provider Active XIOMARA Hui Attending Provider, Referring Prov ider Active Team Status: Inactive Member Role Status Dates Dr. Janine Choudhary DO Primary Care Prov ider, Attending Provider, Referring Provider Active Team Status: Active Member Role Status Dates Dr. Janine Choudhary DO Primary Care Provider Active Start: December 27, 2024 Dr. Yuliet Brown MD Attending Provider Active Start: December 27, 2024 Dr. Yuliet Brown MD Referring Provider Active Start: December 27, 2024 FOR RECORDS PERTAINING TO PATIENTS WHO ARE OR HAVE BEEN ENROLLED IN A CHEMICAL DEPENDENCY/SUBSTANCEABUSE PROGRAM, SOME INFORMATION MAY BE OMITTED. This clinical summary was aggregated from multiple sources. Caution should be exercised in using it in the provision of clinical care. This summary normalizes information from multiple sources, and as a consequence, information in this document may materially change the coding, format and clinical context of patient data. In addition, data may be omitted in some cases. CLINICAL DECISIONS SHOULD BE BASED ON THE PRIMARY CLINICAL RECORDS. [facility] [employer] [facility]. provides no warranty or guarantee of the accuracy or completeness of information in this document.
== END | disposition home or self-care (01) ==
LOC: BFHLAB 09:40
PROVIDERS: PCP Family Medicine; Visit Provider Family Medicine
DX: Z00.00 Encounter for general adult medical examination without abnormal findings (principal); N39.0 Urinary tract infection, site not specified
CPT/HCPCS: 36415; 80053; 80061; 81002; 84443; 85025; 87077; 87086; 87088; 87186

== ENCOUNTER → 2025-04-11 | Outpatient (CLI) | payer OTHER, SELFPAY | END | disposition home or self-care (01) | LOC: LABSPEC 11:47 | PROVIDERS: PCP Family Medicine; Visit Provider Nurse Practitioner Family | DX: N39.0 Urinary tract infection, site not specified (principal) | CPT/HCPCS: 87086; 87088 ==

== ENCOUNTER → 2025-04-15 | Outpatient (CLI) | payer OTHER, SELFPAY ==
--- NOTE | 2025-04-15 14:34 | BI_ITS ---
EXAM: SCRN MAMM (CAD)W/WALTER BILAT DATE: 04/15/2025 CLINICAL HISTORY: F, Age 64 y/o , SCREENING TECHNIQUE: SCRN MAMM (CAD)W/WALTER BILAT COMPARISON: Prior exam(s) dated 04/14/2024, 03/31/2023, 02/28/2021. FINDINGS: TISSUE DENSITY: The breasts are almost entirely fatty. Bilateral Breast Mammographic Findings: No significant masses, calcifications or other abnormalities are identified. BI/SCRN MAMM (CAD)W/WALTER BILAT IMPRESSION: There is no mammographic evidence of malignancy. OVERALL FINAL ASSESSMENT BI-RADS 1: NEGATIVE. RECOMMENDATION: Routine annual follow-up in 1 Year A letter with findings and recommendations will be mailed to the patient. Reading Location: [id number]
== END | disposition home or self-care (01) ==
LOC: OPBI 14:30
PROVIDERS: PCP Family Medicine; Referring Provider Family Medicine; Visit Provider Family Medicine
DX: Z12.31 Encounter for screening mammogram for malignant neoplasm of breast (principal)
CPT/HCPCS: 77063; 77067

== ENCOUNTER → 2025-07-12 | Outpatient (CLI) | payer OTHER, SELFPAY ==
--- NOTE | 2025-07-12 10:51 | MRI_ITS ---
PROCEDURE: LOWER EXT JOINT ONLY (ROUTINE) 07/12/2025 REASON FOR EXAM: PERSISTENT PAIN, STIFFNESS, SWELLING TECHNIQUE: Procedure Code: MRILEJ Modality: MR Procedure: LOWER EXT JOINT ONLY (ROUTINE) T1, T2, PD multiplanar and multisequence images were obtained of the right knee without IV contrast administration. COMPARISON: None FINDINGS: Bone Marrow: There is subcortical edema in the lateral femoral condyle and lateral tibial plateau. Cruciate ligaments: There is a edema and attenuation in the inferior 3rd of the anterior cruciate ligament without laxity, grade 2 sprain. The posterior cruciate appears intact. Collateral ligaments: The medial collateral ligament appears intact. There is a edema and attenuation in the lateral collateral ligament without laxity, grade 2 sprain. The popliteus appears intact. The biceps femoris appears intact. Menisci: There is a complex tear of the posterior horn and body of the lateral meniscus which extends to the root and to the tibial surface with a bucket-handle component in the intercondylar notch, with extrusion of the body. The medial meniscus has a horizontal tear of the posterior horn which extends to the tibial surface. There is mild distal quadriceps tendinopathy without tear. The patellar tendon appears intact Effusion: There is a large joint effusion. There is a Gilmore's cyst measuring 4.0 x 1.4 cm. There is fluid in the prepatellar soft tissues with bursitis. Plica are noted in the superior joint space. Cartilage. 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 There is a focal cartilage defect in the medial femoral condyle measuring 0.3 cm. MRI/Lower Ext Joint Only (Routine) IMPRESSION: There is subcortical edema in the lateral femoral condyle and lateral tibial pl ateau. There is a edema and attenuation in the inferior 3rd of the anterior cruciate l igament without laxity, grade 2 sprain. There is a edema and attenuation in the lateral collateral ligament without lax ity, grade 2 sprain. There is a complex tear of the posterior horn and body of the lateral meniscus which extends to the root and to the tibial surface with a bucket-handle component in the intercondylar notch, with extrusi on of the body. The medial meniscus has a horizontal tear of the posterior horn which extends t o the tibial surface. There is mild distal quadriceps tendinopathy without tear. There is a large joint effusion. There is a Gilmore's cyst measuring 4.0 x 1.4 cm. There is fluid in the prepatellar soft tissues with bursitis. Plica are noted in the superior joint space. 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 There is a focal cartilage defect in the medial femoral condyle measuring 0.3 c m. Reading Location: [facility]
== END | disposition home or self-care (01) ==
PROVIDERS: PCP Family Medicine; Referring Provider Family Medicine; Visit Provider Family Medicine
DX: M23.91 Unspecified internal derangement of right knee (principal)
CPT/HCPCS: 73721

== ENCOUNTER → 2025-07-14 | Outpatient (CLI) | payer OTHER, SELFPAY | END | disposition home or self-care (01) | LOC: SL 10:32 | PROVIDERS: PCP Family Medicine; Referring Provider Family Medicine; Visit Provider Family Medicine | DX: G47.10 Hypersomnia, unspecified (principal) | CPT/HCPCS: 95806 ==

== ENCOUNTER → 2025-08-31 | Outpatient (CLI) | payer OTHER, SELFPAY ==
--- NOTE | 2025-08-31 07:59 | EKG12_ITS ---
Test Reason : PRE OP Blood Pressure : */* mmHG Vent. Rate : 80 BPM Atrial Rate : 80 BPM P-R Int : 132 ms QRS Dur : 76 ms QT Int : 354 ms P-R-T Axes : 65 81 71 degrees QTcB Int : 408 ms Normal sinus rhythm Normal ECG Confirmed by Bentley Hernandez ([id number]), electronic news gathering editor CICI BECKER ([id number]) on 09/01/2025 1:57:54 PM Referred By: Sukhdev Rico Confirmed By: Bentley Hernandez
--- NOTE | 2025-08-31 08:00 | CT_ITS ---
PROCEDURE: EXTREMITY LOWER WITHOUT CONTRA 08/31/2025 REASON FOR EXAM: VALGUS DEFORMIT RIGHT KNEE TECHNIQUE: Procedure Code: CTELWO Modality: CT Procedure: EXTREMITY LOWER WITHOUT CONTRA CT of the right hip right knee and right ankle are performed without contrast. Axial coronal and Sagittal reconstruction series were provided. One or more dose reduction techniques were used (e.g., Automated exposure control, adjustment of the mA and/or kV according to patient size, use of iterative reconstruction technique). RADIATION DOSE SUMMARY: Total DLP: 1150.41 MGycm COMPARISON: None FINDINGS: There is no acute fracture or dislocation of the right hip, right knee or right ankle. Fiduciary markers are in place. 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 Periarticular osteopenia noted. Mild degenerative changes are seen in the right hip with narrowing of the inferior compartment of the right hip joint with osteophyte formation. Small right suprapatellar joint effusion is noted. There is no loose body detected. Ankle mortise is preserved. CT/Extremity Lower without Contra IMPRESSION: CT of the right hip knee and ankle performed for preprocedural planning. No ac angel osseous abnormality. Degenerative changes of the right hip and right knee as described above. Right suprapatellar joint effusion. Reading Location: [id number]
[2025-08-31 09:49] LABS: Hematocrit 41.2 % (37-47); Hemoglobin 14.2 g/dL (12.0-15.0); Immature Granulocytes Count 0.010 X10^3/uL (0.0-0.0); Mean Corp Hgb Conc 34.5 g/dL (32-36); Mean Corpuscular Volume 90.0 fL (81-99); Mean Platelet Vol. 11.2 fl (6.2-12.0); NRBC Flagged by Analyzer 0 % (0-5); Platelet Count 226 K/mm3 (150-450); RBC Distribution Width CV 13.1 % (11.6-14.6); RBC Distribution Width SD 43.1 fl (35.1-43.9); Red Blood Count 4.58 M/mm3 (4.2-5.4); White Blood Count 5.3 K/mm3 (4.4-11.0)
[2025-08-31 10:21] LABS: Albumin, Serum 4.5 g/dL (3.4-4.8); Anion Gap 11 (5-15); BUN 20 mg/dL (4-19); BUN/Creat Ratio 26.9 RATIO (10-20); Calcium,Total 9.7 mg/dL (7.6-11.0); Carbon Dioxide 27.0 mmol/L (21.0-32.0); Chloride 104 mmol/L (98-108); Glucose 106 mg/dL (70-99); Potassium 4.3 mmol/L (3.3-5.1)
== END | disposition home or self-care (01) ==
PROVIDERS: PCP Family Medicine; Referring Provider Specialist; Visit Provider Specialist
DX: Z01.818 Encounter for other preprocedural examination (principal); M17.11 Unilateral primary osteoarthritis, right knee; M21.061 Valgus deformity, not elsewhere classified, right knee
CPT/HCPCS: 36415; 73700; 80048; 82040; 85025; 93005